=== PATIENT | female | born 1970 | race Caucasian/White ===

== ENCOUNTER 2023-01-31 03:41 | Emergency (ER) | payer OTHER, SELFPAY ==
[2023-01-31 03:44] VITALS: BP 154/89; PULSE 92; RESP 16; TEMP 37.1; O2SAT 97; BMI 45.7
--- NOTE | 2023-01-31 03:56 | ED.GENADUL1 ---
Documented by User: Luis Felipe Enriquez MD 02/01/23 06:41 HPI - General Adult General Chief complaint: Headache Stated complaint: headache Time Seen by Provider: 01/31/23 03:53 History of Present Illness HPI narrative: headache and diarrhea for one week. headache improves with OTC medication but returns. Feels like a band across her head. headache is not too bad now .States she feels crappy. Diarrhea is without blood. No fever Onset (ago): week(s) Related Data Home Medications Medication Instructions Recorded Confirmed levothyroxine 137 mcg tablet 137 mcg PO DAILY 01/31/23 01/31/23 meloxicam 15 mg tablet 15 mg PO DAILY 01/31/23 01/31/23 Previous Rx's Medication Instructions Recorded dicyclomine 20 mg tablet 20 mg PO QID PRN abdominal pain 01/31/23 #10 tabs Allergies Allergy/AdvReac Type Severity Reaction Status Date / Time naproxen [From Aleve] Allergy Unknown Verified 01/31/23 03:47 Review of Systems ROS Status of ROS 10 or more systems reviewed and unremarkable except as noted in history and below PFSH PFS Social History Smoking status: Current every day smoker Exam Constitutional Vital Signs, click to edit/add: Last Vital Signs Temp 98.8 F 01/31/23 03:44 Pulse 92 H 01/31/23 03:44 Resp 16 01/31/23 03:44 BP 154/89 H 01/31/23 03:44 Pulse Ox 97 01/31/23 03:44 O2 Del Method Room Air 01/31/23 03:44 Common normals: no apparent distress, oriented x3, no limitations, healthy appearing, alert and well nourished Eye Common normals: EOMs intact bilaterally and conjunctivae normal Respiratory Common normals: normal respiratory effort, no retractions, no use of accessory muscles and clear to auscultation bilaterally Cardio Common normals: regular rate, regular rhythm, S1 normal heart sound and S2 normal heart sound GI Common normals: Normal to inspection, nondistended, normoactive bowel sounds present, soft to palpation and non-tender Extremity Common normals: normal to inspection and full ROM Neuro Common normals: oriented x3, CN's II-XII intact bilaterally, moves all extremities, no focal motor deficits and no sensory deficits noted Psych Appearance: grossly normal Course Vital Signs Vital signs: Vital Signs Temperature 98.8 F 01/31/23 03:44 Pulse Rate 92 H 01/31/23 03:44 Respiratory Rate 16 01/31/23 03:44 Blood Pressure 154/89 H 01/31/23 03:44 Pulse Oximetry 97 01/31/23 03:44 Oxygen Delivery Method Room Air 01/31/23 03:44 Temperature 98.8 F 01/31/23 03:44 Pulse Rate 92 H 01/31/23 03:44 Respiratory Rate 16 01/31/23 03:44 Blood Pressure 154/89 H 01/31/23 03:44 Pulse Oximetry 97 01/31/23 03:44 Oxygen Delivery Method Room Air 01/31/23 03:44 Medical Decision Making Lab Data Labs: Lab Results 01/31/23 01/31/23 Range/Units 04:10 05:39 WBC 8.5 (4.0-11.0) 10^3/uL RBC 4.55 (4.20-5.40) 10^6/uL Hgb 12.8 (12.0-16.0) g/dL Hct 39.4 (36.0-48.0) % MCV 86.6 (81.0-99.0) fL MCH 28.1 (26.7-34.0) pg MCHC 32.5 (29.9-35.2) g/dL RDW 15.8 H (11.0-15.0) % Plt Count 151 (150-450) 10^3/uL MPV 11.7 (9.5-13.5) fL Neut % (Auto) 58.1 (43.0-75.0) % Lymph % (Auto) 34.6 (20.5-60.0) % Leslie % (Auto) 6.2 (1.7-12.0) % Eos % (Auto) 0.9 (0.9-7.0) % Baso % (Auto) 0.1 L (0.2-2.0) % Neut # (Auto) 4.9 (1.4-6.5) 10^3/uL Lymph # (Auto) 2.9 (1.2-3.8) 10^3/uL Leslie # (Auto) 0.5 (0.3-0.8) 10^3/uL Eos # (Auto) 0.1 (0.0-0.7) 10^3/uL Baso # (Auto) 0.0 (0.0-0.1) 10^3/uL Abs Immat Gran (auto) 0.01 (0.00-0.03) 10^3/uL Imm/Tot Granulo (auto) 0.1 (0.0-0.5) % Sodium 141 (136-145) mmol/L Potassium 3.7 (3.5-5.1) mmol/L Chloride 105 (98-107) mmol/L Carbon Dioxide 25.7 (21.0-32.0) mmol/L Anion Gap 14.0 BUN 16.0 (7.0-18.0) mg/dL Creatinine 0.89 (0.55-1.02) mg/dL Est GFR ( Amer) >60 (>=60) Est GFR (Non-Af Amer) >60 (>=60) BUN/Creatinine Ratio 18.0 Glucose 203 H (74-106) mg/dL Calcium 8.5 (8.5-10.1) mg/dL Total Bilirubin 0.4 (0.2-1.0) mg/dL AST 31 (15-37) U/L ALT 59 (14-59) U/L Alkaline Phosphatase 109 (46-116) U/L Total Protein 7.0 (6.4-8.2) g/dL Albumin 3.8 (3.4-5.0) g/dL Globulin 3.2 g/dL Albumin/Globulin Ratio 1.2 Stl C. cayetanensis PCR Not detected (NOT DETECTE) Stool Rotavirus (PCR) Not detected (NOT DETECTE) Stool Adenovirus (PCR) Not detected (NOT DETECTE) Stool Astrovirus (PCR) Not detected (NOT DETECTE) Stool Campylobacter PCR Not detected (NOT DETECTE) Stool Cryptosporidium PCR Not detected (NOT DETECTE) St Sh/Enteroin Ecoli PCR Not detected (NOT DETECTE) Stl Enterotoxigenic E PCR Not detected (NOT DETECTE) Stool EPEC (PCR) Not detected (NOT DETECTE) Stl E. histolytica PCR Not detected (NOT DETECTE) Stool Giardia Lamblia PCR Not detected (NOT DETECTE) Stl P. shigelloides PCR Not detected (NOT DETECTE) Stool Salmonella PCR Not detected (NOT DETECTE) Stool Sapovirus (PCR) Not detected (NOT DETECTE) Stl Shiga-like Tx 1 PCR Not detected (NOT DETECTE) St Y.enterocolitica PCR Not detected (NOT DETECTE) Stl Vibrio cholerae PCR Not detected (NOT DETECTE) Stl Enteroaggr Ecoli PCR Not detected (NOT DETECTE) Stl Norovirus GI/GII PCR Not detected (NOT DETECTE) C. difficile Toxin A&B Not detected (NOT DETECTE) Vibrio Culture Not detected (NOT DETECTE) Discharge Plan Discharge Chief Complaint: Headache Clinical Impression: Diarrhea, Headache Patient Disposition: Home, Self-Care Time of Disposition Decision: 07:05 Condition: Good Prescriptions / Home Meds: New dicyclomine 20 mg tablet 20 mg PO QID PRN (Reason: abdominal pain) Qty: 10 0RF No Action levothyroxine 137 mcg tablet 137 mcg PO DAILY meloxicam 15 mg tablet 15 mg PO DAILY Print Language: [place] Citizen Instructions: Gastroenteritis (ED), Acute Headache (ED) Stand Alone Forms: Portal Instructions Referrals: Kayla Gutierrez [Emergency Nurse] - 1 week Physician,Non-Staff, [Primary Care Provider] - 1 week Discharge Date/Time: 01/31/23 07:17 Documented by User: Wei Yu MD 01/31/23 07:14 HPI - General Adult General Chief complaint: Headache Stated complaint: headache Time Seen by Provider: 01/31/23 03:53 Related Data Home Medications Medication Instructions Recorded Confirmed levothyroxine 137 mcg tablet 137 mcg PO DAILY 01/31/23 01/31/23 meloxicam 15 mg tablet 15 mg PO DAILY 01/31/23 01/31/23 Previous Rx's Medication Instructions Recorded dicyclomine 20 mg tablet 20 mg PO QID PRN abdominal pain 01/31/23 #10 tabs Allergies Allergy/AdvReac Type Severity Reaction Status Date / Time naproxen [From Aleve] Allergy Unknown Verified 01/31/23 03:47 PFSH PFSH Social History Smoking status: Current every day smoker Exam Constitutional Vital Signs, click to edit/add: Last Vital Signs Temp 98.8 F 01/31/23 03:44 Pulse 92 H 01/31/23 03:44 Resp 16 01/31/23 03:44 BP 154/89 H 01/31/23 03:44 Pulse Ox 97 01/31/23 03:44 O2 Del Method Room Air 01/31/23 03:44 Course Vital Signs Vital signs: Vital Signs Temperature 98.8 F 01/31/23 03:44 Pulse Rate 92 H 01/31/23 03:44 Respiratory Rate 16 01/31/23 03:44 Blood Pressure 154/89 H 01/31/23 03:44 Pulse Oximetry 97 01/31/23 03:44 Oxygen Delivery Method Room Air 01/31/23 03:44 Temperature 98.8 F 01/31/23 03:44 Pulse Rate 92 H 01/31/23 03:44 Respiratory Rate 16 01/31/23 03:44 Blood Pressure 154/89 H 01/31/23 03:44 Pulse Oximetry 97 01/31/23 03:44 Oxygen Delivery Method Room Air 01/31/23 03:44 Medical Decision Making MDM Narrative Medical decision making narrative: Signout note: Patient signed out to me by Dr. Enriquez with results of gastrointestinal study pending. Patient with headache and diarrhea for the last week. Stable, patient is afebrile. Her abdominal examination is benign. Laboratory reviewed and noted. Studies are negative. Patient will appearing in the room. She is requesting a work note. Work note provided. Dr. Lara. Previously discussed incidental finding of nonfasting hyperglycemia with the patient. She'll need follow-up with her PCP. Giovanny prescribed. Return precautions discussed. Questions were answered. The patient was discharged home. Wei Yu DO, FAAEM Lab Data Labs: Lab Results 01/31/23 01/31/23 Range/Units 04:10 05:39 WBC 8.5 (4.0-11.0) 10^3/uL RBC 4.55 (4.20-5.40) 10^6/uL Hgb 12.8 (12.0-16.0) g/dL Hct 39.4 (36.0-48.0) % MCV 86.6 (81.0-99.0) fL MCH 28.1 (26.7-34.0) pg MCHC 32.5 (29.9-35.2) g/dL RDW 15.8 H (11.0-15.0) % Plt Count 151 (150-450) 10^3/uL MPV 11.7 (9.5-13.5) fL Neut % (Auto) 58.1 (43.0-75.0) % Lymph % (Auto) 34.6 (20.5-60.0) % Leslie % (Auto) 6.2 (1.7-12.0) % Eos % (Auto) 0.9 (0.9-7.0) % Baso % (Auto) 0.1 L (0.2-2.0) % Neut # (Auto) 4.9 (1.4-6.5) 10^3/uL Lymph # (Auto) 2.9 (1.2-3.8) 10^3/uL Leslie # (Auto) 0.5 (0.3-0.8) 10^3/uL Eos # (Auto) 0.1 (0.0-0.7) 10^3/uL Baso # (Auto) 0.0 (0.0-0.1) 10^3/uL Abs Immat Gran (auto) 0.01 (0.00-0.03) 10^3/uL Imm/Tot Granulo (auto) 0.1 (0.0-0.5) % Sodium 141 (136-145) mmol/L Potassium 3.7 (3.5-5.1) mmol/L Chloride 105 (98-107) mmol/L Carbon Dioxide 25.7 (21.0-32.0) mmol/L Anion Gap 14.0 BUN 16.0 (7.0-18.0) mg/dL Creatinine 0.89 (0.55-1.02) mg/dL Est GFR ( Amer) >60 (>=60) Est GFR (Non-Af Amer) >60 (>=60) BUN/Creatinine Ratio 18.0 Glucose 203 H (74-106) mg/dL Calcium 8.5 (8.5-10.1) mg/dL Total Bilirubin 0.4 (0.2-1.0) mg/dL AST 31 (15-37) U/L ALT 59 (14-59) U/L Alkaline Phosphatase 109 (46-116) U/L Total Protein 7.0 (6.4-8.2) g/dL Albumin 3.8 (3.4-5.0) g/dL Globulin 3.2 g/dL Albumin/Globulin Ratio 1.2 Stl C. cayetanensis PCR Not detected (NOT DETECTE) Stool Rotavirus (PCR) Not detected (NOT DETECTE) Stool Adenovirus (PCR) Not detected (NOT DETECTE) Stool Astrovirus (PCR) Not detected (NOT DETECTE) Stool Campylobacter PCR Not detected (NOT DETECTE) Stool Cryptosporidium PCR Not detected (NOT DETECTE) St Sh/Enteroin Ecoli PCR Not detected (NOT DETECTE) Stl Enterotoxigenic E PCR Not detected (NOT DETECTE) Stool EPEC (PCR) Not detected (NOT DETECTE) Stl E. histolytica PCR Not detected (NOT DETECTE) Stool Giardia Lamblia PCR Not detected (NOT DETECTE) Stl P. shigelloides PCR Not detected (NOT DETECTE) Stool Salmonella PCR Not detected (NOT DETECTE) Stool Sapovirus (PCR) Not detected (NOT DETECTE) Stl Shiga-like Tx 1 PCR Not detected (NOT DETECTE) St Y.enterocolitica PCR Not detected (NOT DETECTE) Stl Vibrio cholerae PCR Not detected (NOT DETECTE) Stl Enteroaggr Ecoli PCR Not detected (NOT DETECTE) Stl Norovirus GI/GII PCR Not detected (NOT DETECTE) C. difficile Toxin A&B Not detected (NOT DETECTE) Vibrio Culture Not detected (NOT DETECTE) Discharge Plan Discharge Chief Complaint: Headache Clinical Impression: Diarrhea, Headache Patient Disposition: Home, Self-Care Time of Disposition Decision: 07:05 Condition: Good Prescriptions / Home Meds: New dicyclomine 20 mg tablet 20 mg PO QID PRN (Reason: abdominal pain) Qty: 10 0RF No Action levothyroxine 137 mcg tablet 137 mcg PO DAILY meloxicam 15 mg tablet 15 mg PO DAILY Print Language: [place] Citizen Instructions: Gastroenteritis (ED), Acute Headache (ED) Stand Alone Forms: Portal Instructions Referrals: Kayla Gutierrez [Emergency Nurse] - 1 week Physician,Non-Staff, MD [Primary Care Provider] - 1 week Discharge Date/Time: 01/31/23 07:17
--- NOTE | 2023-01-31 04:17 | CT_ITS ---
The [address] [address] Patient Name: ABBEY PAPPAS MRN: [id number] date: 1970 Sex: F Assigned Patient Location: ER Current Patient Location: ER Accession/Order Number: [id number] Exam Date: 01/31/2023 04:17 Report Date: 01/31/2023 04:40 At the request of: NIHARIKA AGUIRRE Procedure: CT head/brain wo con INDICATION: 52 years old; Female. Headache for one week. TECHNIQUE: CT Head (ax/cor/sag reformats). Ionizing radiation dose reduced via iterative reconstruction/FBP blend and body size kV/mA adjustment. Comparison: None FINDINGS: POSTOPERATIVE CHANGES: None. BRAIN PARENCHYMA: No focal lesions. No mass effect. No midline shift or herniation. No intraparenchymal or extra-axial hemorrhage. Normal martinez/white differentiation. VENTRICLES/EXTRA-AXIAL SPACES: Normal for patient's age. SINUSES/MASTOIDS: There is an opacified hypoplastic frontal sinus in the midline. A separate from the remainder the frontal sinuses. No bone expansion is seen. Mastoids and middle ears are clear. MSK: No displaced or depressed calvarial fracture is noted. OTHER: No hyperdense intraluminal thrombus is seen. CT/CT head/brain wo con IMPRESSION: 1. No acute intracranial abnormality. No hemorrhage or mass effect. 2. There is a opacified accessory frontal sinus in the midline. No bone expansion or destruction is seen. Electronically authenticated by: JACOB TOSCANO Date: 01/31/2023 04:40
[2023-01-31 04:19] LABS: Basophils Percent Auto 0.1 % (0.2-2.0); Eosinophils Absolute Auto 0.1 10^3/uL (0.0-0.7); Eosinophils Percent Auto 0.9 % (0.9-7.0); Hematocrit 39.4 % (36.0-48.0); Hemoglobin 12.8 g/dL (12.0-16.0); Immature Granulocytes Abs Auto 0.01 10^3/uL (0.00-0.03); Immature Granulocytes Pct Auto 0.1 % (0.0-0.5); Lymphocytes Absolute Auto 2.9 10^3/uL (1.2-3.8); Lymphocytes Percent Auto 34.6 % (20.5-60.0); Mean Corpuscular HGB Conc 32.5 g/dL (29.9-35.2); Mean Corpuscular Hemoglobin 28.1 pg (26.7-34.0); Mean Corpuscular Volume 86.6 fL (81.0-99.0); Mean Platelet Volume 11.7 fL (9.5-13.5); Monocytes Absolute Auto 0.5 10^3/uL (0.3-0.8); Monocytes Percent Auto 6.2 % (1.7-12.0); Neutrophils Absolute Auto 4.9 10^3/uL (1.4-6.5); Neutrophils Percent Auto 58.1 % (43.0-75.0); Platelet Count 151 10^3/uL (150-450); Red Blood Count 4.55 10^6/uL (4.20-5.40); Red Cell Distribution Width 15.8 % (11.0-15.0); White Blood Count 8.5 10^3/uL (4.0-11.0)
[2023-01-31 04:37] LABS: Alanine Aminotransferase 59 U/L (14-59); Albumin Globulin Ratio 1.2; Albumin Level 3.8 g/dL (3.4-5.0); Alkaline Phosphatase 109 U/L (46-116); Aspartate Amino Transferase 31 U/L (15-37); Bilirubin Total 0.4 mg/dL (0.2-1.0); Calcium 8.5 mg/dL (8.5-10.1); Carbon Dioxide 25.7 mmol/L (21.0-32.0); Chloride 105 mmol/L (98-107); Estimated GFR (African America >60 (>=60); Estimated GFR (Non-African Ame >60 (>=60); Globulin 3.2 g/dL; Glucose 203 mg/dL (74-106); Potassium 3.7 mmol/L (3.5-5.1); Sodium 141 mmol/L (136-145)
[2023-01-31 05:44] LABS: Adenovirus F 40/41 NOT DETECTED (NOT DETECTE); Astrovirus NOT DETECTED (NOT DETECTE); Campylobacter NOT DETECTED (NOT DETECTE); Cryptosporidium NOT DETECTED (NOT DETECTE); Cyclospora cayetanensis NOT DETECTED (NOT DETECTE); Entamoeba histolytica NOT DETECTED (NOT DETECTE); Enteroaggregative E.coli NOT DETECTED (NOT DETECTE); Enteropathogenic E.coli NOT DETECTED (NOT DETECTE); Enterotoxigenic E. coli NOT DETECTED (NOT DETECTE); Giardia lamblia NOT DETECTED (NOT DETECTE); Norovirus GI/GII NOT DETECTED (NOT DETECTE); Plesiomonas shigelloides NOT DETECTED (NOT DETECTE); Rotavirus A NOT DETECTED (NOT DETECTE); Salmonella NOT DETECTED (NOT DETECTE); Sapovirus NOT DETECTED (NOT DETECTE); Shiga-like toxin-producing E.C NOT DETECTED (NOT DETECTE); Shigella/Enteroinvasive E.coli NOT DETECTED (NOT DETECTE); Vibrio NOT DETECTED (NOT DETECTE); Vibrio cholerae NOT DETECTED (NOT DETECTE); Yersinia enterocolitica NOT DETECTED (NOT DETECTE)
== END 2023-01-31 07:17 | disposition home or self-care (01) ==
PROVIDERS: Internal Medicine; Emergency Provider Student in an Organized Health Care Education/Training Program
DX: R51.9 Headache, unspecified (principal); R19.7 Diarrhea, unspecified; Z79.899 Other long term (current) drug therapy; Z79.890 Hormone replacement therapy; F17.210 Nicotine dependence, cigarettes, uncomplicated
CPT/HCPCS: 36415; 70450; 80053; 85025; 87045; 87493; 87507; 99284

== ENCOUNTER 2023-05-08 17:49 | Outpatient (OUT) | payer OTHER, SELFPAY ==
--- NOTE | 2023-05-08 | XR_ITS ---
The [place] [id number] Patient Name: ABBEY PAPPAS MRN: [id number] date: 1970 Sex: F Assigned Patient Location: [facility] Current Patient Location: Accession/Order Number: [id number] Exam Date: 05/08/2023 18:30 Report Date: 05/09/2023 01:46 At the request of: YENY SMITH Procedure: XR wrist LT min 3V EXAM: XR wrist LT min 3V, XR hand LT min 3V HISTORY: LEFT HAND PAIN M 79.642 COMPARISON: None. TECHNIQUE: 3 views of the left wrist and 4 views of the left hand were obtained. FINDINGS: No acute fracture or dislocation is seen. There are scattered degenerative changes. On the last image of the hand, a metallic BB overlies the proximal third finger. No soft tissue mass is seen. XR/XR wrist LT min 3V IMPRESSION: 1. Scattered degenerative changes of the left wrist and left hand with no acute osseous abnormality seen. Electronically authenticated by: Cami JORDAN Date: 05/09/2023 01:46
--- NOTE | 2023-05-08 | XR_ITS ---
The [address] [address] Patient Name: ABBEY PAPPAS MRN: [id number] date: 1970 Sex: F Assigned Patient Location: [facility] Current Patient Location: Accession/Order Number: [id number] Exam Date: 05/08/2023 18:30 Report Date: 05/09/2023 01:46 At the request of: YENY SMITH Procedure: XR hand LT min 3V EXAM: XR wrist LT min 3V, XR hand LT min 3V HISTORY: LEFT HAND PAIN M 79.642 COMPARISON: None. TECHNIQUE: 3 views of the left wrist and 4 views of the left hand were obtained. FINDINGS: No acute fracture or dislocation is seen. There are scattered degenerative changes. On the last image of the hand, a metallic BB overlies the proximal third finger. No soft tissue mass is seen. XR/XR hand LT min 3V IMPRESSION: 1. Scattered degenerative changes of the left wrist and left hand with no acute osseous abnormality seen. Electronically authenticated by: Cami JORDAN Date: 05/09/2023 01:46
== END 2023-05-08 17:50 | disposition home or self-care (01) ==
PROVIDERS: PCP Nurse Practitioner Family; Visit Provider Family Medicine
DX: M79.642 Pain in left hand (principal)
CPT/HCPCS: 73110; 73130

== ENCOUNTER 2023-07-21 06:36 | Outpatient (OUT) | payer OTHER, SELFPAY ==
--- OUTSIDE RECORDS SUMMARY | 2023-07-21 06:38 | XMS_ITS | CCD ---
Author Name Unknown Address [id number] [place] [address] Organization [facility] Care Team Providers Care Co Founder And Chief Strategy Officer Name Role Phone NON STAFF Primary Care Unavailable Erica Preston Consulting Unavailable Luis, Sameh Admitting Unavailable Riryana, Juan Luish Attending Unavailable EBRAHEIM, YARIEL Admitting Unavailable EBRAHEIM, YARIEL Attending Unavailable UNKNOWN, PHYSICIAN Referring Unavailable UNKNOWN, PHYSICIAN Primary Care Unavailable FTÁIMA SALAZAR Surgeon Unavailable [place] Procedure Practitioner Unavailab le [place] Procedure Practitioner Unavailab le YARIEL ELISE Surgeon Unavailable RAMON, YING Primary Care Unavailable RAMON, YING Admitting Unavailable RAMON, YING Attending Unavailable RAMON, YING Attending Unavailable RAMON, YING Consulting Unavailable RAMON, YING Primary Care Unavailable RAMON, YING Admitting Unavailable RAMON, YING Attending Unavailable RAMON, YING Consulting Unavailable RAMON, YING Primary Care Unavailable RAMON, YING Admitting Unavailable DIXIE RAMOS Referring Unavailable DIXIE RAMOS Attending Unavailable INDIGO, DIXIE Attending Unavailable Allergies Allergy Classification Reported Allergen(s) Allergy Type Date of Onset Reaction(s) Facility (1 source) Naproxen Drug Allergy 08-10-2018 [facility] Repository (3 sources) Naproxen Drug Allergy 03-27-2015 [facility] Repository (1 source) Naproxen Drug Allergy 05-18-2020 [facility] (1 source) Naproxen; Translations: [NAPROXEN SODIUM] Drug Allergy 05-27-2022 [facility] Repository Problems Active Problems Problem Classification Problem Date Documented Date Episodic/Chronic Administrative/social admission (1 source) Other reduced mobility; Translations: [Z74.09 - Other reduced mobility] Onset: 08-10-2018 Episodic Deficiency and other anemia (1 source) Anemia, unspecified; Translations: [D64.9 - Anemia, unspecified] Onset: 08-10-2018 Episodic Essential hypertension (1 source) Essential (primary) hypertension; Translations: [I10 - Essential (primary) hypertension] Onset: 08-10-2018 Chronic Nutritional deficiencies (1 source) Deficiency of other specified B group vitamins; Translations: [E53.8 - Deficiency of other specified B group vitamins] Onset: 08-10-2018 Episodic Other injuries and conditions due to external causes (1 source) Traumatic compartment syndrome of right lower extremity, initial encounter; Translations: [T79.A21A - Traumatic compartment syndrome of right lower extremity, initial encounter] Onset: 08-10-2018 Episodic Other injuries and conditions due to external causes (1 source) History of falling; Translations: [Z91.81 - History of falling] Onset: 08-10-2018 Episodic Other nervous system disorders (1 source) Other acute postprocedural pain; Translations: [G89.18 - Other acute postprocedural pain] Onset: 08-10-2018 Episodic Other screening for suspected conditions (not mental disorders or infectious disease) (1 source) Other specified abnormal findings of blood chemistry; Translations: [R79.89 - Other specified abnormal findings of blood chemistry] Onset: 08-10-2018 Episodic Residual codes; unclassified (1 source) Other specified postprocedural states; Translations: [Z98.890 - Other specified postprocedural states] Onset: 08-10-2018 Unclassified (1 source) S82.141A - Displaced bicondylar fracture of right tibia, initial encounter for closed fracture; Translations: [S82.141A - Displaced bicondylar fracture of right tibia, initial encounter for closed fracture] Onset: 08-10-2018 Past or Other Problems Problem Classification Problem Date Documented Da te Episodic/Chronic Fracture of lower limb (2 sources) Displaced bicondylar fracture of right tibia, subsequent encounter for closed fracture with routine healing; Translations: [Displaced bicondylar fracture of right tibia, subsequent encounter for closed fracture with routine healing] Onset: 05-25-2022 Episodic Results Test Name Value Interpretation Reference Range Facility 36on 07-19-2023 36 Approving, but needs appt for additional refills. [facility] 36on 06-09-2023 36 Approving, but needs appt for additional refills. [facility] 36on 05-09-2023 36 Approving, but needs appt for additional refills. [facility] Office Visiton 12-19-2022 Follow-up visit [id number] Jovita Swartzvirgie Hull 1970 F Date Provider Department Center 12/19/2022 DIXIE WINSTON MP Family History Family history unknown: Yes Family Status - Relation Status Age at Mother Father Level of Service:92939 [place] OFFICE/OUTPT VISIT,PROCEDURE ONLY Reason for Visit and Comments: Follow-up [271924] Pain [136] [facility] Follow-Upon 11-28-2022 Follow-Up [id number] Abbey Swartz R 1970 Provider Department Center 11/28/2022 DIXIE WINSTON MP Family History Family history unknown: Yes Level of Service:15740 [place] OFFICE/OUTPATIENT ESTABLISHED LOW MDM 20-29 MIN Reason for Visit and Comments: Follow-up [929500] Pain [136] [facility] 36on 11-09-2022 36 User notified dequan t that refill was approved and in order for future refills she would need to keep further appointment. Patient verbalized understanding. Patient appointment is scheduled for 11/21/2022 @1:15 with Dixie Ramos. No further action is needed. [facility] 36on 11-08-2022 36 Approving, but needs appt for additional refills. [facility] 36on 10-06-2022 36 Approving, but needs appt for additional refills. [facility] INSULINon 07-11-2022 Insulin 27.8 uIU/mL Critically high 2.6-24.9 [facility] Comment on above: Performed By: #### I NSULIN #### [facility] [address] [address] [address] Heather Del Toro OCC BLD IMMUNO SCREENon 06-20 OCCULT BLOOD Negative Normal NEGATIVE [facility] Comment on above: Performed By: #### O BSCRN #### [facility] [address] [place] [address] Dr. Heather Del Toro CBC AUTO DIFFon 07-09-2022 BASO # 0.0 103/ul Normal 0.0-0.1 [facility] Comment on above: Performed By: #### C BC #### [facility] [address] [place] [address] Dr. Heather Del Toro Basophils/100 WBC (Bld) 0.2 % Normal 0.2-2.0 [facility] Comment on above: Performed By: #### C BC #### [facility] [address] [place] [address] Dr. Heather Del Toro EO # 0.1 103/ul Normal 0.0-0.7 [facility] Comment on above: Performed By: #### C BC #### [facility] [address] [place] [address] Dr. Heather Del Toro Eosinophils/100 WBC (Bld) 1.0 % Normal 0.9-7.0 [facility] Comment on above: Performed By: #### C BC #### [facility] [address] [place] [address] Dr. Heather Del Toro Erythrocyte distribution width (RBC) [Ratio] 14.9 % Normal 11.0-15.0 [facility] Comment on above: Performed By: #### C BC #### [facility] [address] [place] [address] Dr. Heather Del Toro Hematocrit (Bld) [Volume fraction] 36.6 % Normal 36.0-48.0 [facility] Comment on above: Performed By: #### C BC #### [facility] [address] [place] [address] Dr. Heather Del Toro Hemoglobin (Bld) [Mass/Vol] 12.5 g/dL Normal 12.0-16.0 [facility] Comment on above: Performed By: #### C BC #### [facility] [address] [place] [address] Dr. Heather Del Toro IG # 0.01 10e3/ul Normal 0.00-0.03 [facility] Comment on above: Performed By: #### C BC #### [facility] [address] [place] [address] Dr. Heather Del Toro IG % 0.1 % Normal 0.0-0.5 [facility] Comment on above: Performed By: #### C BC #### [facility] [address] [place] [address] Dr. Heather Del Toro LYMPH # 3.2 103/ul Normal 1.2-3.8 [facility] Comment on above: Performed By: #### C BC #### [facility] [address] [place] [address] Dr. Heather Del Toro Lymphocytes/100 WBC (Bld) 39.0 % Normal 20.5-60.0 [facility] Comment on above: Performed By: #### C BC #### [facility] [address] [place] [address] Dr. Heather Del Toro MANUAL DIFF REQ NO Normal [facility] Comment on above: Performed By: #### C BC #### [facility] [address] [place] [address] Dr. Heather Del Toro MCH (RBC) [Entitic mass] 27.2 pg Normal 26.7-34.0 [facility] Comment on above: Performed By: #### C BC #### [facility] [address] [place] [address] Dr. Heather Del Toro MCHC (RBC) [Mass/Vol] 34.2 g/dL Normal 29.9-35.2 [facility] Comment on above: Performed By: #### C BC #### [facility] [address] [place] [address] Dr. Heather Del Toro MCV (RBC) [Entitic vol] 79.7 fL Critically low 81.0-99.0 [facility] Comment on above: Performed By: #### C BC #### [facility] [address] [place] [address] Dr. Heather Del Toro MONO # 0.6 103/ul Normal 0.3-0.8 [facility] Comment on above: Performed By: #### C BC #### [facility] [address] [place] [address] Dr. Heather Del Toro Monocytes/100 WBC (Bld) 6.7 % Normal 1.7-12.0 [facility] Comment on above: Performed By: #### C BC #### [facility] [address] [place] [address] Dr. Heather Del Toro NEUT # 4.4 103/ul Normal 1.4-6.5 [facility] Comment on above: Performed By: #### C BC #### [facility] [address] [place] [address] Dr. Heather Del Toro Neutrophils/100 WBC (Bld) 53.0 % Normal 43.0-75.0 [facility] Comment on above: Performed By: #### C BC #### [facility] [address] [place] [address] Dr. Heather Del Toro Platelet mean volume (Bld) [Entitic vol] 11.2 fL Normal 9.5-13.5 [facility] Comment on above: Performed By: #### C BC #### [facility] [address] [place] [address] Dr. Heather Del Toro PLT 168 103/ul Normal 150-450 [facility] Comment on above: Performed By: #### C BC #### [facility] [address] [place] [address] Dr. Heather Del Toro RBC 4.59 106/ul Normal 4.20-5.40 [facility] Comment on above: Performed By: #### C BC #### [facility] [address] [place] [address] Dr. Heather Del Toro WBC 8.3 103/ul Normal 4.0-11.0 [facility] Comment on above: Performed By: #### C BC #### [facility] [address] [place] [address] Dr. Heather Del Toro FREE THYROXINE INDEX T7on FTI 3.30 Normal 1.30-4.50 [facility] Comment on above: Performed By: #### L IPID, CMP, T7, TSH #### [facility] [address] [place] [address] Dr. Heather Del Toro T3U 32.0 % Normal 30.0-39.0 [facility] Comment on above: Performed By: #### L IPID, CMP, T7, TSH #### [facility] [address] [address] [address] Heather Del Toro T4 [Mass/Vol] 10.30 ug/dL Normal 4.80-13.90 [facility] Comment on above: Performed By: #### L IPID, CMP, T7, TSH #### [facility] [address] [address] [address] Heather Del Toro GLYCOHEMOGLOBIN A1Con 2022 ADA RECOMMENDATION SEE BELOW Normal [facility] Comment on above: Result Comment: ADA RECOMMENDED LIMIT 4.0 - 6.0 ADA THERAPEUTIC TARGET < 7.0 ACTION SUGGESTED > 7.0 Performed By: #### A 1C #### [facility] [address] [place] [address] Dr. Heather Del Toro Glucose [Mass/Vol] 146 mg/dL Normal [facility] Comment on above: Performed By: #### A 1C #### [facility] [address] [place] [address] Dr. Heather Del Toro HbA1c (Bld) [Mass fraction] 6.7 % Critically high 4.5-6.2 [facility] Comment on above: Performed By: #### A 1C #### [facility] [address] [place] [address] Dr. Heather Del Toro IRONon 07-09-2022 Iron [Mass/Vol] 26.0 ug/dL Critically low 50.0-170.0 [facility] Comment on above: Performed By: #### I YAKOV #### [facility] [address] [address] [address] Heather Del Toro LIPID PROFILEon 07-09-2022 CHOL-HDL RATIO NORM SEE BELOW Normal [facility] Comment on above: Result Comment: 3.3 - 4.4 LOW RISK 4.4 - 7.1 AVERAGE RISK 7.1 - 11.0 MODERATE RISK >11.0 HIGH RISK Performed By: #### L IPID, CMP, T7, TSH #### [facility] [address] [address] [address] Heather Del Toro Cholesterol [Mass/Vol] 212 mg/dL Critically high <=200 [facility] Comment on above: Performed By: #### L IPID, CMP, T7, TSH #### [facility] [address] [address] [address] Heather Del Toro Cholesterol in HDL [Mass/Vol] 39 mg/dL Critically low 40-60 [facility] Comment on above: Performed By: #### L IPID, CMP, T7, TSH #### [facility] [address] [address] [address] Heather Del Toro Cholesterol in LDL [Mass/Vol] 150.6 mg/dL Normal [facility] Comment on above: Performed By: #### L IPID, CMP, T7, TSH #### [facility] [address] [address] [address] Heather Del Toro Cholesterol.total/Ch olesterol in HDL [Mass ratio] 5.4 {ratio} Normal [facility] Comment on above: Performed By: #### L IPID, CMP, T7, TSH #### [facility] [address] [address] [address] Heather Del Toro HDL NORMAL > or = 60 mg/dl - LO W CARDIOVASCULAR RISK <40 mg/dl - HIGH CARDIOVASCULAR RISK Normal [facility] Comment on above: Performed By: #### L IPID, CMP, T7, TSH #### [facility] [address] [address] [address] Heather Del Toro LDL CALC NORMAL SEE BELOW Normal [facility] Comment on above: Result Comment: <100 mg/dl OPTIMAL 100 - 129 mg/dl NEAR OR ABOVE OPTIMAL 130 - 159 mg/dl BORDERLINE HIGH 160 - 189 mg/dl HIGH >190 mg/dl VERY HIGH Performed By: #### L IPID, CMP, T7, TSH #### [facility] [address] [address] [address] Heather Del Toro Triglyceride [Mass/Vol] 112 mg/dL Normal <=150 [facility] Comment on above: Performed By: #### L IPID, CMP, T7, TSH #### [facility] [address] [place] [address] Dr. Heather Del Toro VLDL CALC 22.4 mg/dL Normal [facility] Comment on above: Performed By: #### L IPID, CMP, T7, TSH #### [facility] [address] [place] [address] Dr. Heather Del Toro PROF 14(COMP METB)on 023 Albumin [Mass/Vol] 3.9 g/dL Normal 3.4-5.0 [facility] Comment on above: Performed By: #### L IPID, CMP, T7, TSH #### [facility] [address] [place] [address] Dr. Heather Del Toro Albumin/Globulin [Mass ratio] 1.2 {ratio} Normal [facility] Comment on above: Performed By: #### L IPID, CMP, T7, TSH #### [facility] [address] [place] [address] Dr. Heather Del Toro ALP [Catalytic activity/Vol] 132 U/L Critically high 46-116 [facility] Comment on above: Performed By: #### L IPID, CMP, T7, TSH #### [facility] [address] [place] [address] Dr. Heather Del Toro ALT [Catalytic activity/Vol] 93 U/L Critically high 14-59 [facility] Comment on above: Performed By: #### L IPID, CMP, T7, TSH #### [facility] [address] [address] [address] Heather Del Toro Anion gap [Moles/Vol] 11.5 mmol/L Normal [facility] Comment on above: Performed By: #### L IPID, CMP, T7, TSH #### [facility] [address] [place] [address] Dr. Heather Del Toro AST [Catalytic activity/Vol] 43 U/L Critically high 15-37 [facility] Comment on above: Performed By: #### L IPID, CMP, T7, TSH #### [facility] [address] [place] [address] Dr. Heather Del Toro Bilirubin [Mass/Vol] 0.3 mg/dL Normal 0.2-1.0 [facility] Comment on above: Performed By: #### L IPID, CMP, T7, TSH #### [facility] [address] [address] [address] Heather Del Toro Calcium [Mass/Vol] 9.1 mg/dL Normal 8.5-10.1 [facility] Comment on above: Performed By: #### L IPID, CMP, T7, TSH #### [facility] [address] [place] [address] Dr. Heather Del Toro Chloride [Moles/Vol] 104 mmol/L Normal 98-107 [facility] Comment on above: Performed By: #### L IPID, CMP, T7, TSH #### [facility] [address] [place] [address] Dr. Heather Del Toro CO2 [Moles/Vol] 28.9 mmol/L Normal 21.0-32.0 [facility] Comment on above: Performed By: #### L IPID, CMP, T7, TSH #### [facility] [address] [place] [address] Dr. Heather Del Toro Creatinine [Mass/Vol] 0.73 mg/dL Normal 0.55-1.02 [facility] Comment on above: Performed By: #### L IPID, CMP, T7, TSH #### [facility] [address] [place] [address] Dr. Heather Del Toro EGFR-AF BHUTANESE >60 Normal >=60 [facility] Comment on above: Performed By: #### L IPID, CMP, T7, TSH #### [facility] [address] [place] [address] Dr. Heather Del Toro EGFR-NON AF BHUTANESE >60 Normal >=60 [facility] Comment on above: Performed By: #### L IPID, CMP, T7, TSH #### [facility] [address] [place] [address] Dr. Heather Del Toro Globulin (S) [Mass/Vol] 3.3 g/dL Normal [facility] Comment on above: Performed By: #### L IPID, CMP, T7, TSH #### [facility] [address] [address] [address] Heather Del Toro Glucose [Mass/Vol] 106 mg/dL Normal 74-106 [facility] Comment on above: Performed By: #### L IPID, CMP, T7, TSH #### [facility] [address] [place] [address] Dr. Heather Del Toro Potassium [Moles/Vol] 4.4 mmol/L Normal 3.5-5.1 [facility] Comment on above: Performed By: #### L IPID, CMP, T7, TSH #### [facility] [address] [place] [address] Dr. Heather Del Toro Protein [Mass/Vol] 7.2 g/dL Normal 6.4-8.2 [facility] Comment on above: Performed By: #### L IPID, CMP, T7, TSH #### [facility] [address] [place] [address] Dr. Heather Del Toro Sodium [Moles/Vol] 140 mmol/L Normal 136-145 [facility] Comment on above: Performed By: #### L IPID, CMP, T7, TSH #### [facility] [address] [place] [address] Dr. Heather Del Toro Urea nitrogen [Mass/Vol] 10.0 mg/dL Normal 7.0-18.0 [facility] Comment on above: Performed By: #### L IPID, CMP, T7, TSH #### [facility] [address] [place] [address] Dr. Heather Del Toro Urea nitrogen/Creatinine [Mass ratio] 13.7 mg/mg Normal [facility] Comment on above: Performed By: #### L IPID, CMP, T7, TSH #### [facility] [address] [place] [address] Dr. Heather Del Toro TSHon 07-09-2022 TSH 4.912 uIU/mL Critically high 0.358-3.740 [facility] Comment on above: Performed By: #### L IPID, CMP, T7, TSH #### [facility] [address] [address] [address] Heather Del Toro ANKLE RIGHT 2 [facility] 05-18-20 ANKLE RIGHT 2 [facility] [address] [place] [id number] Patient Name: ABBEY SWARTZ : 1970 Sex: F Age: Race: White Pt. Location: OUTP Patient Status: O Ordered Date: 05/18/2020 12:00:00 PM Completed Date: 05/18/2020 12:53 PM Requesting Provider: YARIEL ELISE Attending Provider: YARIEL ELISE Report Copy To: Signs & Symptoms: RIGHT PERCUTANEOUS ACHILLES TENDON LENGTHENING WITH RIGHT ANKLE JOINT CORTICOSTEROID INJECTION History: Comments: RIGHT PERCUTANEOUS ACHILLES TENDON LENGTHENING WITH RIGHT ANKLE JOINT CORTICOSTEROID INJECTION Exam: ANKLE RIGHT 2 [facility] ANKLE RIGHT 2 [facility] 05/18/2020 12:53 PM CLINICAL INDICATIONS: RIGHT PERCUTANEOUS ACHILLES TENDON LENGTHENING WITH RIGHT ANKLE JOINT CORTICOSTEROID INJECTION TECHNOLOGIST COMMENTS: Intra op. Right ankle steroid injection. Dr Elise used 8 seconds of fluoro. QUESTION FOR THE RADIOLOGIST: RIGHT PERCUTANEOUS ACHILLES TENDON LENGTHENING WITH RIGHT ANKLE JOINT CORTICOSTEROID INJECTION PROTOCOL: AP(PA) and Lateral views were obtained. COMPARISON: None FINDINGS: Dictation for documentation purposes only IMPRESSION: Electronically signed: Shivam Church. Transcribed by: [email or web address], User Resident: Electronically Signed by: SHIVAM CHURCH @ 05/18/2020 01:33 PM Normal [facility] Comment on above: Order Comment: RIGHT PERCUTANEOUS ACHILLES TENDON LENGTHENING WITH RIGHT ANKLE JOINT CORTICOSTEROID INJECTION Operative Reporton 0 Operative Report MR#: [id number] [facility] Pt. Name: Abbey Swartz Room #: 0C Discharge Date: Birthdate: 1970 OPERATIVE REPORT DATE OF SURGERY: 05/18/2020 SURGEON: Yariel Elise M.D. ASSISTANTS: 1. Dora Villarreal MD. 2. Yudi Padilla MD. 3. Jonathan Mata MD. PREOPERATIVE DIAGNOSES: 1. Right ankle equinus contracture. 2. Right talus OCD lesion. POSTOPERATIVE DIAGNOSES: 1. Right ankle equinus contracture. 2. Right talus OCD lesion. PROCEDURE PERFORMED: 1. Right percutaneous tendo-Achilles lengthening. 2. Right ankle corticosteroid injection under fluoroscopy. ANESTHESIA: General endotracheal. IV FLUIDS: Per anesthesia report. ANTIBIOTICS: Clindamycin. INDICATIONS FOR PROCEDURE: This is a 49-year-old female, who previously injured her right lower extremity in a work related accident over 1 year ago. Since that time, she has developed a right ankle equinus contracture as well as ankle pain secondary to an osteochondral lesion involving her talus. She was therefore recommended for percutaneous tendo-Achilles lengthening as well as corticosteroid injection to her ankle. After explaining risks, benefits, and alternatives, informed consent was obtained. PROCEDURE IN DETAIL: The patient was greeted in the preoperative holding area. Informed consent was deemed to be appropriate. The operative site was marked by the attending surgeon. Preoperative antibiotics in the form of clindamycin were administered. The patient was taken back to the operating room where general endotracheal anesthesia was induced. The patient was placed supine on the operating room table. Care was taken to ensure that all bony prominences were well padded. A nonsterile tourniquet was applied and not utilized during the case. A surgical time-out was performed and the procedure began with the patient, procedure, and laterality were confirmed. We began by performing a Woodford style Achilles tenotomy. Through 3 percutaneous stab incisions using a 15 blade. After performing our Achilles tenotomy, the patient was able to achieve approximately 10 degrees of dorsiflexion with the knee extended and 20 degrees of dorsiflexion with the knee flexed. Following the tenotomy, the heel cord was palpated and found to be incontinuity throughout. We then used a 21-gauge needle to inject the tibiotalar joint with 1 mL of 40 mix per mL Kenalog and 4 mL of 1% lidocaine without under fluoroscopy. The surgical site was then inoculated locally using 0.25% Marcaine with epinephrine. Percutaneous incisions were covered with Steri-Strips and a sterile dressing of gauze and Webril was applied. The patient was then placed into a well-padded short-leg splint with the ankle in neutral dorsiflexion. At the conclusion of the case, all needle and sponge counts were correct x2. POSTOPERATIVE PLAN: The patient will be remain nonweightbearing to her right lower extremity and her splint. She will be given scripts for pain medication as well as a stool softener. We will plan on seeing the patient back in 2 weeks for wound check. At that time, we will plan on making the patient weightbearing as tolerated in a Cam Walker boot. Dr. Elise was present for all critical portions of the procedure and immediately available thereafter. Electronically Signed by: Yariel Elise M.D. 05/20/2020 06:27 P Yariel Elise M.D. I was present for the grajeda and critical portions and I was otherwise immediately available to assist. Date Dict: 05/18/2020/01:35 P/Dora Villarreal MD Date Trans: 05/18/2020 06:45 P/angie [id number] Normal [facility] POC GLUCOSE LABon 05-18-2020 Glucose [Mass/Vol] 101 mg/dL High 70-100 The [facility] Comment on above: Performed By: #### 8 4039 #### [facility] [address] [facility] Glucose [Mass/Vol] 106 mg/dL High 70-100 [facility] Comment on above: Performed By: #### 8 5499 ####[facility] [place] [address], [place] *MRSA/MSSA DNA NASALon 05-16 *MRSA/MSSA DNA NASAL Clinical Report: (D ) Specimen: NASAL SWAB Collected: 05/16/2020 10:34 Status: Final Last Updated: 05/17/2020 09:45 MSSA DNA (Final) Negative MRSA DNA (Final) Negative Normal [facility] Comment on above: Performed By: #### 3 1595 #### [facility] [address] *SARS-CoV-2 COVID-19on 05-16 SARS-CoV-2 (COVID-19) RNA NEVILLE+probe Ql (Unsp spec) Not detected Normal Not Detected [facility] Comment on above: Order Comment: The A ptima SARS-CoV-2 assay is a nucleic acid amplification test intended for the qualitative detection of RNA from SARS-CoV-2 isolated and purified from nasopharyngeal (BANKRUPTCY JUDGE),oropharyngeal (OP), nasal swab, sputum, and bronchoalveolar lavage (BAL) specimens from patients with signs and symptoms of infection who are suspected of COVID-19. Results are for the identification of SARS-CoV-2 RNA. The SARS-CoV-2 RNA is generally detectable during the acute phase of infection. The Aptima SARS-CoV-2 Assay on the [place] [employer] [place] [employer] system is intended for use by laboratory personnel specifically instructed and trained in the operation of the [place] [employer] [place] [employer] system. The Aptima SARS-CoV-2 assay is only for use under the Food and Drug Administration Emergency Use Authorization. Testing is limited to laboratories certified under the Clinical Laboratory Improvement Amendments of 1988 (CLIA), 42 U.S.C. ???263a, to perform high complexity tests. Not Detected: Not detected does not preclude SARS-CoV-2 infection and should not be used as the sole basis for patient management decisions. Not detected results must be combined with clinical observations, patient history, and epidemiological information. Performed By: #### 3 1792 #### [facility] [address] APTTon 05-16-2020 aPTT Coag (Bld) [Time] 32.1 s Normal 25.0-35.[address] [facility] Comment on above: Result Comment: ALL RESULTS MUST BE INTERPRETED WITH RESPECT TO BLOOD DRAWING ARTIFACT OR DILUTION ERROR OF ANTICOAGULANT AT THE TIME OF SAMPLING. THE APTT SHOULD NOT BE USED TO MONITOR UNFRACTIONATED HEPARIN THERAPY, THIS LABORATORY NO LONGER HAS AN ESTABLISHED THERAPEUTIC RANGE BASED ON THE APTT. IT IS RECOMMENDED THAT THE UFH - HEPARIN ASSAY (ANTI-XA ACTIVITY) BE USED FOR THIS PURPOSE. Performed By: #### 5 6101, [id number] #### [facility] [address] [place] [address], [facility] BASIC METABOLIC PANELon 11-2 8-2019 Calcium [Mass/Vol] 9.5 mg/dL Normal 8.6-10.3 [facility] Comment on above: Performed By: #### 0 0071 #### [facility] [address] [place] [address], [facility] Chloride [Moles/Vol] 104 mmol/L Normal 98-107 [facility] Comment on above: Performed By: #### 0 0071 #### [facility] [address] [place] [address], [facility] CO2 [Moles/Vol] 28 mmol/L Normal 21-31 [facility] Comment on above: Performed By: #### 0 0071 #### [facility] [address] [place] [address], [facility] Creatinine [Mass/Vol] 0.79 mg/dL Normal 0.60-1.20 [facility] Comment on above: Performed By: #### 0 0071 #### [facility] [address] [place] [address], [facility] GFR/1.73 sq M.predicted among blacks MDRD (S/P/Bld) [Vol rate/Area] mL/min/{1.73_m2} Normal >60 [facility] Comment on above: Performed By: #### 0 0071 #### [facility] [address] GFR/1.73 sq M.predicted among non-blacks MDRD (S/P/Bld) [Vol rate/Area] mL/min/{1.73_m2} Normal >60 [facility] Comment on above: Performed By: #### 0 0071 #### [facility] [address] [place] [address], [facility] Glucose [Mass/Vol] 116 mg/dL High 70-100 [facility] Comment on above: Performed By: #### 0 0071 #### [facility] [address] [place] [address], [facility] Potassium [Moles/Vol] 4.2 mmol/L Normal 3.5-5.1 [facility] Comment on above: Performed By: #### 0 0071 #### [facility] [address] [facility]. [address] Sodium [Moles/Vol] 139 mmol/L Normal 136-145 [facility] Comment on above: Performed By: #### 0 1 #### [facility] [address] Urea nitrogen [Mass/Vol] 8 mg/dL Normal 7-25 [facility] Comment on above: Performed By: #### 0 1 #### [facility] [address] [place] [address], [facility] CBC W/DIFFon 05-16-2020 ABS IMM GRANS 0.0 10*3/uL Normal 0.0-0.2 [facility] Comment on above: Performed By: #### 5 3 #### [facility] [address] [facility]. [address] ABS NEUTROPHILS 5.7 10*3/uL Normal 1.6-7.[address] [facility] Comment on above: Performed By: #### 5 3 #### [facility] [address] [facility] [facility] [place] [address], [facility] Basophils (Bld) [#/Vol] 0.0 10*3/uL Normal 0.0-0.2 [facility] Comment on above: Performed By: #### 5 0103 #### [facility] [address] [place] [address], [facility] Basophils/100 WBC (Bld) 0.3 % Normal 0.0-1.0 [facility] Comment on above: Performed By: #### 5 0103 #### [facility] [address] [facility] [place] [address], [facility] Eosinophils (Bld) [#/Vol] 0.1 10*3/uL Normal 0.0-0.5 [facility] Comment on above: Performed By: #### 5 3 #### [facility] [address] [facility] [place] [address], [facility] Eosinophils/100 WBC (Bld) 1.4 % Normal 0.0-6.0 [facility] Comment on above: Performed By: #### 5 3 #### [facility] [address] [facility] Erythrocyte distribution width (RBC) [Ratio] 16.6 % High 11.5-15.0 [facility] Comment on above: Performed By: #### 5 0103 #### [facility] [address] [facility] [place] [address], [facility] Hematocrit (Bld) [Volume fraction] 41.8 % Normal 36.0-45.0 [facility] Comment on above: Performed By: #### 5 0103 #### [facility] [address] [facility] [place] [address], [facility] Hemoglobin (Bld) [Mass/Vol] 12.4 g/dL Normal 12.0-15.0 [facility] Comment on above: Performed By: #### 5 3 #### [facility] [address] [place] [address], [facility] IMMATURE GRANS 0.3 % Normal 0.0-1.0 The [facility] Comment on above: Performed By: #### 5 0103 #### [facility] [address] [place] [address], [facility] Lymphocytes (Bld) [#/Vol] 2.8 10*3/uL Normal 1.2-4.0 [facility] Comment on above: Performed By: #### 5 0103 #### [facility] [address] [place] [address], [facility] Lymphocytes/100 WBC (Bld) 29.8 % Normal 20.0-45.0 [facility] Comment on above: Performed By: #### 5 3 #### [facility] [address] [place] [address], [facility] MCH (RBC) [Entitic mass] 25.2 pg Low 27.0-33.0 [facility] Comment on above: Performed By: #### 5 3 #### [facility] [address] [place] [address], [facility] MCHC (RBC) [Mass/Vol] 29.7 g/dL Low 32.0-35.0 [facility] Comment on above: Performed By: #### 5 3 #### [facility] [address] [place] [address], [facility] MCV (RBC) [Entitic vol] 85.0 fL Normal 82.0-98.0 [facility] Comment on above: Performed By: #### 5 0103 #### [facility] [address] [place] [address], [facility] Monocytes (Bld) [#/Vol] 0.7 10*3/uL Normal 0.1-1.0 [facility] Comment on above: Performed By: #### 5 3 #### [facility] [address] [place] [address], [facility] MONOS 7.2 % Normal 5.0-12.0 [facility] Comment on above: Performed By: #### 5 0103 #### [facility] [address] [place] [address], [facility] Neutrophils/100 WBC (Bld) 61.0 % Normal 40.0-72.0 [facility] Comment on above: Performed By: #### 5 0103 #### [facility] [address] [place] [address], [facility] Nucleated RBC/100 WBC (Bld) [Ratio] 0 % Normal 0-0 [facility] Comment on above: Performed By: #### 5 0103 #### [facility] [address] [place] [address], [facility] PLAT CNT 210 10*3/uL Normal 150-400 [facility] Comment on above: Performed By: #### 5 0103 #### [facility] [address] [place] [address], [facility] RBC (Bld) [#/Vol] 4.92 10*6/uL Normal 3.80-5.00 The [facility] Comment on above: Performed By: #### 5 0103 #### [facility] [address] [place] [address], [facility] WBC (Bld) [#/Vol] 9.29 10*3/uL Normal 4.00-10.60 The [facility] Comment on above: Performed By: #### 5 0103 #### [facility] [address] PROTHROMBIN TIMEon 11--202 0 INR Coag (PPP) [Relative time] 0.82 {INR} Low 0.91-1.16 [facility] Comment on above: Result Comment: ACCC P RECOMMENDED INR FOR WARFARIN THERAPY ------- ------- CONDITION INR PROPHYLAXIS OF VENOUS THROMBOSIS 2-3 (HIGH-RISK SURGERY) TREATMENT OF VENOUS THROMBOSIS 2-3 TREATMENT OF PULMONARY EMBOLISM 2-3 PREVENTION OF SYSTEMIC EMBOLISM: 2-3 ACUTE MYOCARDIAL INFARCTION TISSUE HEART VALVES VALVULAR HEART DISEASE ATRIAL FIBRILLATION RECURRENT SYSTEMIC EMBOLISM MECHANICAL HEART VALVE 2.5-3.5 FROM: ORAL ANTICOAGULANTS. MECHANISM OF ACTION, CLINICAL EFFECTIVENESS, AND OPTIMAL THERAPEUTIC RANGE. CHEST 1995;108:231S-246S. Performed By: #### 5 6101, [address] #### [address] PT Coag (PPP) [Time] 11.3 s Low 12.3-14.8 [facility] Comment on above: Result Comment: ALL RESULTS MUST BE INTERPRETED WITH RESPECT TO BLOOD DRAWING ARTIFACT OR DILUTION ERROR OF ANTICOAGULANT AT THE TIME OF SAMPLING. Performed By: #### 5 6101, [address] #### [address] EYE FOR FOREIGN BODY04-12 EYE FOR FOREIGN BODY [facility] Department of Radiology [address] [place] [id number] Patient Name: ABBEY SWARTZ : 1970 Sex: F Age: Race: White Pt. 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 COMPARISON: None IMPRESSION: Unremarkable orbits. No radiopaque foreign body identified. Clear paranasal sinuses. Electronically signed: Sanjuana Keith. Transcribed by: [email or web address], User Resident: Electronically Signed by: SANJUANA KEITH @ 04/12/2020 08:45 AM Normal [facility] MRI ANKLE WO CONTRAST RIGHTo n 04-12-2020 MRI ANKLE WO CONTRAST RIGHT [facility] Department of Radiology [address] [place] [id number] Patient Name: ABBEY SWARTZ : 1970 Sex: F Age: Race: White Pt. 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 [facility]LY [facility] Req. 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 COMPARISON: None. FINDINGS: Achilles tendon appropriate Plantar fascia and sinus Tarsi appropriate No fracture or destructive lesion Large osteochondritic lesion at the talar dome medial aspect with some collapse of the bone and subchondral cyst formation. This appears to be subacute or chronic without underlying bone edema. There is some arthritic irregularity at the articulation between the medial malleolus and the osteochondritic process Subtalar joint appropriate Tendons of the tarsal tunnel and perineal tendons appropriate IMPRESSION: 1. 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 Electronically signed: Sanjuana Keith. Transcribed by: [email or web address], User Resident: Electronically Signed by: SANJUANA KEITH @ 04/12/2020 12:00 PM Normal [facility] Comment on above: Order Comment: Pleas e Evaluate MRI FOOT WO CONTRAST RIGHTon 04-12-2020 MRI FOOT WO CONTRAST RIGHT [facility] Department of Radiology [address] [place] [address] Patient Name: ABBEY SWARTZ : 1970 Sex: F Age: Race: White Pt. 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 CONTRAST: None COMPARISON: None. FINDINGS: Osteochondritic lesion demonstrated within the medial talar dome described on the ankle MRI. Plantar fascia is appropriate Lisfranc ligament appropriate Sesamoid bones adjacent to the base of the first metatarsal are unremarkable There is bone edema involving the proximal shaft of the fourth metatarsal consistent with an stress fracture. No displacement and no soft tissue mass. No other fractures identified IMPRESSION: 1. Stress fracture involving proximal shaft fourth metatarsal. Electronically signed: Sanjuana Keith. Transcribed by: [email or web address], User Resident: Electronically Signed by: SANJUANA KEITH @ 04/12/2020 12:15 PM Normal [facility] Comment on above: Order Comment: Niecy gleason Evaluate Basic Metabolic Panelon - Calcium mass conc 8.8 mg/dL Normal 8.2-10.2 [facility] Comment on above: Performed By: #### C BC, BMP #### [facility] [address] Chloride molar conc 103 mmol/L Normal 95-114 [facility] Comment on above: Performed By: #### C BC, BMP #### [facility] [address] CO2 molar conc 26.6 mmol/L Normal 22.0-30.0 [facility] Comment on above: Performed By: #### C BC, BMP #### [facility] [address] Creatinine mass conc 0.71 mg/dL Normal 0.44-1.03 [facility] Comment on above: Performed By: #### C BC, BMP #### [facility] [address] [place] [address] [place] Creatinine mass conc 101.3763311929 mg/dL Normal [facility] Comment on above: Result Comment: PERF ORMED BY: [place] [address] PATHOLOGIST CALL TAKER BIANCA GARG M.D. Performed By: #### C BC, BMP #### [address] Estimated GFR ( Bhavna > 60 Normal [facility] Comment on above: Result Comment: GFR estimated reference range: According to KDOQI guidelines, <60 ml/min/1.73m2 is sufficient to diagnose a patient with chronic kidney disease. Performed By: #### C BC, BMP #### [facility] [address] Estimated GFR (Non- Am > 60 Normal [facility] Comment on above: Performed By: #### C BC, BMP #### [facility] [address] Glucose mass conc 103 mg/dL High 70-100 [facility] Comment on above: Result Comment: Peculiar Glucose Reference Range is dependent on time and content of last meal. Glucose of more than 200 mg/dL in a nonstressed, ambulatory subject supports the diagnosis of Diabetes Mellitus. ADA recommended reference range Performed By: #### C BC, BMP #### [address] Potassium molar conc 4.0 mmol/L Normal 3.5-5.1 [facility] Comment on above: Performed By: #### C BC, BMP #### [address] Sodium molar conc 138 mmol/L Normal 136-146 [facility] Comment on above: Performed By: #### C BC, BMP #### [address] Urea nitrogen mass conc 9 mg/dL Normal 9-23 [facility] Comment on above: Performed By: #### C BC, BMP #### [address] Complete Blood Count Auto Di ffon 08-14-2018 Basophils #/vol (Bld) 0.0 10*3/uL Normal 0.0-0.2 [facility] Comment on above: Result Comment: PERF ORMED BY: [place] [address] PATHOLOGIST CALL TAKER BIANCA GARG M.D. Performed By: #### C BC, BMP #### [place] [address] [place] Basophils/100 WBC (Bld) 0.3 % Normal . [facility] Comment on above: Performed By: #### C BC, BMP #### [address] Eosinophils #/vol (Bld) 0.1 10*3/uL Normal 0.0-0.45 [facility] Comment on above: Performed By: #### C BC, BMP #### [address] Eosinophils/100 WBC (Bld) 1.9 % Normal . [facility] Comment on above: Performed By: #### C BC, BMP #### [address] Erythrocyte distribution width Ratio (RBC) 14.3 % Normal 11.9-15.3 [facility] Comment on above: Performed By: #### C BC, BMP #### [address] Hematocrit Volume Fraction (Bld) 30.5 % Low 34.0-46.4 [facility] Comment on above: Performed By: #### C BC, BMP #### [address] Hemoglobin mass conc (Bld) 10.0 g/dL Low 11.8-15.4 [facility] Comment on above: Performed By: #### C BC, BMP #### [address] Lymphocytes #/vol (Bld) 1.8 10*3/uL Normal 1.00-4.8 [facility] Comment on above: Performed By: #### C BC, BMP #### [address] Lymphocytes/100 WBC (Bld) 25.6 % Normal . [facility] Comment on above: Performed By: #### C BC, BMP #### [address] MCH Entitic mass (RBC) 32.9 g/dL Normal 32.0-35.0 [facility] Comment on above: Performed By: #### C BC, BMP #### [address] [address] [place] MCH Entitic mass (RBC) 30.0 pg Normal 24.7-34.3 [facility] Comment on above: Performed By: #### C BC, BMP #### [address] MCV Entitic volume (RBC) 91.3 fL Normal 80-100 [facility] Comment on above: Performed By: #### C BC, BMP #### [address] Monocytes #/vol (Bld) 0.6 10*3/uL Normal 0.0-0.8 [facility] Comment on above: Performed By: #### C BC, BMP #### [address] Monocytes/100 WBC (Bld) 8.1 % Normal . [facility] Comment on above: Performed By: #### C BC, BMP #### [address] Neutrophils #/vol (Bld) 4.4 10*3/uL Normal 1.8-7.7 [facility] Comment on above: Performed By: #### C BC, BMP #### [address] Neutrophils/100 WBC (Bld) 64.1 % Normal . [facility] Comment on above: Performed By: #### C BC, BMP #### [address] Nucleated RBC/100 WBC Ratio (Bld) 0.1 % Normal 0-0.5 [facility] Comment on above: Performed By: #### C BC, BMP #### [address] Platelet mean volume Entitic volume (Bld) 8.6 fL Normal 6.3-10.7 [facility] Comment on above: Performed By: #### C BC, BMP #### [address] Platelets #/vol (Bld) 254 10*3/uL Normal 150-450 [facility] Comment on above: Performed By: #### C BC, BMP #### [address] RBC #/vol (Bld) 3.35 10*6/uL Low 3.60-5.00 [facility] Comment on above: Performed By: #### C BC, BMP #### [address] WBC #/vol (Bld) 6.9 10*3/uL Normal 4.5-11.0 [place] [facility] Comment on above: Performed By: #### C BC, BMP #### [address] Complete Blood Count Auto Di ffon 08-11-2018 Basophils #/vol (Bld) 0.0 10*3/uL Normal 0.0-0.2 [facility] Comment on above: Result Comment: PERF ORMED BY: [place] [address] PATHOLOGIST CALL TAKER BIANCA GARG M.D. Performed By: #### C BC, CMP, PAB, B12, FOL #### [address] Basophils/100 WBC (Bld) 0.6 % Normal . [facility] Comment on above: Performed By: #### C BC, CMP, PAB, B12, FOL #### [address] Eosinophils #/vol (Bld) 0.1 10*3/uL Normal 0.0-0.45 [facility] Comment on above: Performed By: #### C BC, CMP, PAB, B12, FOL #### [address] Eosinophils/100 WBC (Bld) 1.2 % Normal . [facility] Comment on above: Performed By: #### C BC, CMP, PAB, B12, FOL #### [address] Erythrocyte distribution width Ratio (RBC) 14.1 % Normal 11.9-15.3 [facility] Comment on above: Performed By: #### C BC, CMP, PAB, B12, FOL #### [address] Hematocrit Volume Fraction (Bld) 30.4 % Low 34.0-46.4 [facility] Comment on above: Performed By: #### C BC, CMP, PAB, B12, FOL #### [address] Hemoglobin mass conc (Bld) 10.3 g/dL Low 11.8-15.4 [facility] Comment on above: Performed By: #### C BC, CMP, PAB, B12, FOL #### [address] Lymphocytes #/vol (Bld) 1.9 10*3/uL Normal 1.00-4.8 [facility] Comment on above: Performed By: #### C BC, CMP, PAB, B12, FOL #### [address] Lymphocytes/100 WBC (Bld) 23.9 % Normal . [facility] Comment on above: Performed By: #### C BC, CMP, PAB, B12, FOL #### [address] MCH Entitic mass (RBC) 30.9 pg Normal 24.7-34.3 [facility] Comment on above: Performed By: #### C BC, CMP, PAB, B12, FOL #### [address] MCH Entitic mass (RBC) 33.8 g/dL Normal 32.0-35.0 [facility] Comment on above: Performed By: #### C BC, CMP, PAB, B12, FOL #### [address] MCV Entitic volume (RBC) 91.5 fL Normal 80-100 [facility] Comment on above: Performed By: #### C BC, CMP, PAB, B12, FOL #### [facility] [address] [place] [address] Monocytes #/vol (Bld) 0.8 10*3/uL Normal 0.0-0.8 [facility] Comment on above: Performed By: #### C BC, CMP, PAB, B12, FOL #### [facility] [address] [place] [address] Monocytes/100 WBC (Bld) 9.7 % Normal . [facility] Comment on above: Performed By: #### C BC, CMP, PAB, B12, FOL #### [facility] [address] [place] [address] Neutrophils #/vol (Bld) 5.2 10*3/uL Normal 1.8-7.7 [facility] Comment on above: Performed By: #### C BC, CMP, PAB, B12, FOL #### [address] Neutrophils/100 WBC (Bld) 64.6 % Normal . [facility] Comment on above: Performed By: #### C BC, CMP, PAB, B12, FOL #### [facility] [address] [place] [address] Nucleated RBC/100 WBC Ratio (Bld) 0.2 % Normal 0-0.5 [facility] Comment on above: Performed By: #### C BC, CMP, PAB, B12, FOL #### [facility] [address] [place] [address] Platelet mean volume Entitic volume (Bld) 8.9 fL Normal 6.3-10.7 [facility] Comment on above: Performed By: #### C BC, CMP, PAB, B12, FOL #### [facility] [address] [place] [address] [place] Platelets #/vol (Bld) 234 10*3/uL Normal 150-450 [facility] Comment on above: Performed By: #### C BC, CMP, PAB, B12, FOL #### [facility] [address] [place] [address] RBC #/vol (Bld) 3.32 10*6/uL Low 3.60-5.00 [facility] Comment on above: Performed By: #### C BC, CMP, PAB, B12, FOL #### [facility] [address] [place] [address] WBC #/vol (Bld) 8.1 10*3/uL Normal 4.5-11.0 [facility] Comment on above: Performed By: #### C BC, CMP, PAB, B12, FOL #### [facility] [address] [place] [address] Comprehensive Metabolic Pane robbie 08-11-2018 Albumin mass conc 2.9 g/dL Low 3.2-5.5 [facility] Comment on above: Performed By: #### C BC, CMP, PAB, B12, FOL #### [address] Albumin/Globulin mass ratio 0.9 {ratio} Normal [facility] Comment on above: Performed By: #### C BC, CMP, PAB, B12, FOL #### [facility] [address] [place] [address] ALP enzyme act/vol 98 U/L High 32-92 [facility] Comment on above: Performed By: #### C BC, CMP, PAB, B12, FOL #### [facility] [address] [place] [address] ALT enzyme act/vol 34 U/L Normal 10-60 [facility] Comment on above: Performed By: #### C BC, CMP, PAB, B12, FOL #### [facility] [address] [place] [address] AST enzyme act/vol 19 U/L Normal 10-42 [facility] Comment on above: Performed By: #### C BC, CMP, PAB, B12, FOL #### [facility] [address] [place] [address] Bilirubin mass conc 0.5 mg/dL Normal 0.3-1.2 [facility] Comment on above: Performed By: #### C BC, CMP, PAB, B12, FOL #### [facility] [address] [place] [address] [place] Calcium mass conc 8.7 mg/dL Normal 8.2-10.2 [facility] Comment on above: Performed By: #### C BC, CMP, PAB, B12, FOL #### [facility] [address] Chloride molar conc 101 mmol/L Normal 95-114 [facility] Comment on above: Performed By: #### C BC, CMP, PAB, B12, FOL #### [facility] [address] CO2 molar conc 24.8 mmol/L Normal 22.0-30.0 [facility] Comment on above: Performed By: #### C BC, CMP, PAB, B12, FOL #### [facility] [address] Creatinine mass conc 111.3366446302 mg/dL [facility] Comment on above: Performed By: #### C BC, CMP, PAB, B12, FOL #### [facility] [address] [place] [address] Creatinine mass conc 0.63 mg/dL Normal 0.44-1.03 [facility] Comment on above: Performed By: #### C BC, CMP, PAB, B12, FOL #### [facility] [address] [place] [address] Estimated GFR ( Bhavna > 60 [facility] Comment on above: Result Comment: GFR estimated reference range: According to KDOQI guidelines, <60 ml/min/1.73m2 is sufficient to diagnose a patient with chronic kidney disease. Performed By: #### C BC, CMP, PAB, B12, FOL #### [facility] [address] [place] [address] Estimated GFR (Non- Am > 60 [facility] Comment on above: Performed By: #### C BC, CMP, PAB, B12, FOL #### [facility] [address] Globulin mass conc (S) 3.1 g/dL [facility] Comment on above: Performed By: #### C BC, CMP, PAB, B12, FOL #### [facility] [address] Glucose mass conc 138 mg/dL High 70-100 [facility] Comment on above: Result Comment: Peculiar Glucose Reference Range is dependent on time and content of last meal. Glucose of more than 200 mg/dL in a nonstressed, ambulatory subject supports the diagnosis of Diabetes Mellitus. ADA recommended reference range Performed By: #### C BC, CMP, PAB, B12, FOL #### [facility] [address] Potassium molar conc 3.8 mmol/L Normal 3.5-5.1 [facility] Comment on above: Performed By: #### C BC, CMP, PAB, B12, FOL #### [address] Protein mass conc 6.0 g/dL Low 6.1-7.9 [facility] Comment on above: Performed By: #### C BC, CMP, PAB, B12, FOL #### [address] Sodium molar conc 136 mmol/L Normal 136-146 [facility] Comment on above: Performed By: #### C BC, CMP, PAB, B12, FOL #### [facility] [address] [place] [address] Urea nitrogen mass conc 11 mg/dL Normal 9-23 [facility] Comment on above: Performed By: #### C BC, CMP, PAB, B12, FOL #### [address] Folateon 08-11-2018 Folate 17.5 ng/mL Normal [facility] Comment on above: Result Comment: Yelena te reference range: >5.9 ng/ml The WHO technical consultation on folate and vitamin b12 deficiencies has determined that folate concentrations less than 4 ng/ml are considered deficient. PERFORMED BY: [place] [address] PATHOLOGIST CALL TAKER BIANCA GARG M.D. Performed By: #### C BC, CMP, PAB, B12, FOL #### [facility] [address] Prealbuminon 08-11-2018 Prealbumin mass conc 16.5 mg/dL Low 18.0-38.0 [facility] Comment on above: Performed By: #### C BC, CMP, PAB, B12, FOL #### [facility] [address] [place] [address] Vitamin B12on 08-11-2018 Cobalamin (Vitamin B12) mass conc 146 pg/mL Low 180-914 [facility] Comment on above: Performed By: #### C BC, CMP, PAB, B12, FOL #### [address] Urinalysison 08-10-2018 Appearance Nom (U) Clear Normal Clear [facility] Comment on above: Order Comment: Name Collection Type: Clean-Voided Midstream Performed By: #### U A #### [address] Bilirubin,Urine Negative Normal Negative [facility] Comment on above: Order Comment: Name Collection Type: Clean-Voided Midstream Performed By: #### U A #### [address] Color Nom (U) Yellow Normal Yellow [facility] Comment on above: Order Comment: Name Collection Type: Clean-Voided Midstream Performed By: #### U A #### [facility] [address] [place] [address] Glucose Ql (U) Normal Normal Normal [facility] Comment on above: Order Comment: Name Collection Type: Clean-Voided Midstream Performed By: #### U A #### [facility] [address] [place] [address] Ketones Ql (U) Negative Normal Negative [facility] Comment on above: Order Comment: Name Collection Type: Clean-Voided Midstream Performed By: #### U A #### [facility] [address] [place] [address] Leukocyte esterase Test strip Ql (U) Negative Normal Negative [facility] Comment on above: Order Comment: Name Collection Type: Clean-Voided Midstream Performed By: #### U A #### [facility] [address] [place] [address] Nitrite,Urine Negative Normal Negative [facility] Comment on above: Order Comment: Name Collection Type: Clean-Voided Midstream Performed By: #### U A #### [facility] [address] [place] [address] Occult Blood,Urine Negative Normal Negative [facility] Comment on above: Order Comment: Name Collection Type: Clean-Voided Midstream Result Comment: PERF ORMED BY: [place] [address] PATHOLOGIST CALL TAKER BIANCA GARG M.D. Performed By: #### U A #### [facility] [address] [place] [address] pH (U) 6.5 [pH] Normal 5.0-9.0 [facility] Comment on above: Order Comment: Name Collection Type: Clean-Voided Midstream Performed By: #### U A #### [facility] [address] [place] [address] Protein mass conc (U) Negative Normal Negative [facility] Comment on above: Order Comment: Name Collection Type: Clean-Voided Midstream Performed By: #### U A #### [facility] [address] [place] [address] Specificy [place],Urine 1.025 Normal 1.001-1.030 [facility] Comment on above: Order Comment: Name Collection Type: Clean-Voided Midstream Performed By: #### U A #### [facility] [address] [place] [address] Urobilinogen,Urine Normal Normal Normal [facility] Comment on above: Order Comment: Name Collection Type: Clean-Voided Midstream Performed By: #### U A #### [facility] [address] [place] [address] Encounters Encounter Date Encounter Type Care Provider Facility Start: 07-03-2023 ambulatory [facility] Start: 11-28-2022 End: 11-29-2022 ambulatory DIXIE [facility] Start: 07-13-2022 Encounter for genera l adult medical examination without abnormal findings YING NAVARRO [facility] Start: 07-11-2022 End: 07-11-2022 ambulatory YING NAVARRO Facility:[facility] Start: 07-09-2022 End: 07-10-2022 ambulatory YING NAVARRO Facility:[facility] Start: 07-09-2022 End: 07-10-2022 Encounter for general adult medical examination without abnormal findings YING NAVARRO Facility:[facility] Start: 11-10-2021 ambulatory YING NAVARRO Facility: Start: 05-18-2020 End: 05-19-2020 ambulatory YARIEL MICK Facility:[facility] Start: 08-10-2018 End: 08-17-2018 Evaluation and management of inpatient NON STAFF Facility:[facility] Procedures Date Procedure Procedure Detail Performing Clinician Start: 05-18-2020 ANESTH LOWER LEG SURGERY FÁTIMA SALAZAR Start: 05-18-2020 DRAIN/INJ JOINT/BURSA W/O US YARIEL EBRAHEIM Start: 05-18-2020 NEEDLE LOCALIZATION BY XRAY YARIEL EBRAHEIM Start: 05-18-2020 REVISION OF LOWER LEG TENDON YARIEL EBRAHEIM Payers Date Payer Category Payer Self-pay 2018 Unknown [id number] 1971 Unknown [id number] [id number] 1971 Unknown [id number] [id number] [id number] 1971 Unknown [id number] 1971 Unknown [id number] [id number] [id number] 1959 Private Health Insurance [id number] 1959 Unknown [id number] 1959 Unknown [id number] Unknown [id number] Progress note 12-19-2022 Note Date & Type Note Facility 12-19-2022 Note Patient ID: Abbey butler is a 52 y.o. female. Large Joint: R knee on 12/19/2022 3:14 PM Indications: pain Details: 25 G needle, anterolateral approach Outcome: tolerated well, no immediate complications After discussion of risks, benefits, and alternatives, the patient elected to proceed with an injection into the right knee joint. Confirmed that the patient does not have history of prior adverse reactions, active infections, or relevant allergies. There was no erythema and the skin was clear. The skin was sterilized with Alcohol. A 21 gauge needle was inserted into the rightKnee joint via a Anterolateral approach. Each site was injected with a mixture of 3cc of Kenalog 10mg/ml and 5cc of 1% lidocaine. The injection was completed without complication and a bandage was applied. Consent was given by the patient. Immediately prior to procedure a time out was called to verify the correct patient, procedure, equipment, personal support worker and site/side marked as required. Patient was prepped and draped in the usual sterile fashion. [facility] Progress note 11-28-2022 Note Date & Type Note Facility 11-28-2022 Note Chief complaint: Rig ht knee/LE HPI: 51 y.o female well known to me after a work related injury, sustained a tibia plateau fracture underwent fixation of this and has gone on to heal. She continues with stiffness in her knee joint, has intermittent pain, worse with increased activity and better with rest. She take Mobic which also helps her. Reports worsening pain in the medial aspect of her knee Review of Systems Constitutional: Negative for chills, fatigue and fever. Musculoskeletal: Negative for arthralgias. Knee Musculoskeletal Exam Gait Antalgic: right Limp: right Inspection Right Erythema: none Effusion: none Edema: none Ecchymosis: none Palpation Right Increased warmth: none Crepitus: medial and lateral Tenderness: present Lateral joint line: mild Medial joint line: moderate Range of Motion Right Active extension: 5 Active flexion: 120 Strength Right Extension: 5/5. Flexion: 5/5. Neurovascular Right Patella reflex: normal Dorsalis pedis: 2+ General Constitutional: well-developed and well-nourished Psychiatric: normal mood and affect and no acute distress Neurological: alert and oriented x3 Skin: intact 1. Closed fracture of right tibial plateau with routine healing, subsequent encounter - meloxicam (Mobic) 15 mg tablet; Take 1 tablet (15 mg) by mouth in the morning. Dispense: 30 tablet; Refill: 3 Plan: C9 for CSI Right knee [facility] Summary Purpose Family History No Family History Records FoundNo Family History Records FoundNo Family History Records FoundNo Family History Records Found Advance Directives No Advanced Directives Records FoundNo Advanced Directives Records FoundNo Advanced Directives Records FoundNo Advanced Directives Records Found Additional Source Comments INFORMATION SOURCE (unrecogn ized section and content) DATE CREATED AUTHOR 08/22/2018 [facility] DATE CREATED AUTHOR AUTHOR'S ORGANIZ ATION 03/15/2021 [facility] DATE CREATED AUTHOR AUTHOR'S ORGANIZ ATION 07/22/2022 [facility] DATE CREATED AUTHOR AUTHOR'S ORGANIZ ATION 07/20/2023 [facility] FOR RECORDS PERTAINING TO PATIENTS WHO ARE OR HAVE BEEN ENROLLED IN A CHEMICAL DEPENDENCY/SUBSTANCEABUSE PROGRAM, SOME INFORMATION MAY BE OMITTED. This clinical summary was aggregated from multiple sources. Caution should be exercised in using it in the provision of clinical care. This summary normalizes information from multiple sources, and as a consequence, information in this document may materially change the coding, format and clinical context of patient data. In addition, data may be omitted in some cases. CLINICAL DECISIONS SHOULD BE BASED ON THE PRIMARY CLINICAL RECORDS. [facility] [employer] provides no warranty or guarantee of the accuracy or completeness of information in this document.
[2023-07-21 07:07] LABS: Basophils Percent Auto 0.3 % (0.2-2.0); Eosinophils Absolute Auto 0.1 10^3/uL (0.0-0.7); Hemoglobin 12.7 g/dL (12.0-16.0); Immature Granulocytes Abs Auto 0.02 10^3/uL (0.00-0.03); Immature Granulocytes Pct Auto 0.2 % (0.0-0.5); Lymphocytes Absolute Auto 3.1 10^3/uL (1.2-3.8); Lymphocytes Percent Auto 34.4 % (20.5-60.0); Mean Corpuscular HGB Conc 31.8 g/dL (29.9-35.2); Mean Corpuscular Hemoglobin 28.5 pg (26.7-34.0); Mean Corpuscular Volume 89.7 fL (81.0-99.0); Monocytes Absolute Auto 0.6 10^3/uL (0.3-0.8); Monocytes Percent Auto 6.8 % (1.7-12.0); Neutrophils Absolute Auto 5.1 10^3/uL (1.4-6.5); Neutrophils Percent Auto 57.3 % (43.0-75.0); Platelet Count 165 10^3/uL (150-450); Red Blood Count 4.46 10^6/uL (4.20-5.40); Red Cell Distribution Width 14.7 % (11.0-15.0); White Blood Count 8.9 10^3/uL (4.0-11.0)
[2023-07-21 07:56] LABS: Alanine Aminotransferase 80 U/L (14-59); Albumin Level 3.7 g/dL (3.4-5.0); Alkaline Phosphatase 120 U/L (46-116); Anion Gap 14.2; Aspartate Amino Transferase 42 U/L (15-37); BUN Creatinine Ratio 17.3; Bilirubin Total 0.3 mg/dL (0.2-1.0); Calcium 8.5 mg/dL (8.5-10.1); Carbon Dioxide 27.6 mmol/L (21.0-32.0); Chloride 103 mmol/L (98-107); Chol HDL Ratio 6.1; Cholesterol 213 mg/dL (<=200); Estimated GFR (African America >60 (>=60); Estimated GFR (Non-African Ame >60 (>=60); Free T3 2.32 pg/mL (2.18-3.98); Globulin 3.8 g/dL; Glucose 126 mg/dL (74-106); HDL Cholesterol 35 mg/dL (40-60); Potassium 3.8 mmol/L (3.5-5.1); Sodium 141 mmol/L (136-145); Thyroid Stimulating Hormone 9.887 uIU/mL (0.358-3.740); Total Protein 7.5 g/dL (6.4-8.2); Triglycerides 134 mg/dL (<=150); VLDL CHOLESTEROL 26.8 mg/dL
[2023-07-21 08:00] LABS: Estimated Average Glucose 192 mg/dL; Glycohemoglobin A1C 8.3 % (4.5-6.2)
[2023-07-23 12:11] LABS: Insulin 72.5 uIU/mL (2.6-24.9)
== END 2023-07-21 06:37 | disposition home or self-care (01) ==
LOC: LAB 06:36
PROVIDERS: PCP Nurse Practitioner Family; Visit Provider Nurse Practitioner Family
DX: Z00.00 Encounter for general adult medical examination without abnormal findings (principal)
CPT/HCPCS: 36415; 80053; 80061; 82306; 83036; 83525; 83540; 84436; 84443; 84481; 85025

== ENCOUNTER 2023-09-12 15:07 | Outpatient (OUT) | payer OTHER, SELFPAY ==
--- OUTSIDE RECORDS SUMMARY | 2023-09-12 15:29 | XMS_ITS | CCD ---
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 Name Role Phone NON STAFF Primary Care Unavailable Erica Preston Consulting Unavailable Rizkalla, Sameh Admitting Unavailable Rizkalla, Sameh Attending Unavailable EBRAHEIM, YARIEL Admitting Unavailable EBRAHEIM, YARIEL Attending Unavailable UNKNOWN, PHYSICIAN Referring Unavailable UNKNOWN, PHYSICIAN Primary Care Unavailable FÁTIMA SALAZAR Surgeon Unavailable DC Procedure Practitioner Unavailab le DC Procedure Practitioner Unavailab le EBRAHEIM, YARIEL Surgeon Unavailable RAMON, YING Primary Care Unavailable RAMON, YING Admitting Unavailable RAMON, YING Attending Unavailable RAMON, YING Attending Unavailable RAMON, YING Consulting Unavailable RAMON, YING Primary Care Unavailable RAMON, YING Admitting Unavailable RAMON, YING Attending Unavailable RAMON, YING Consulting Unavailable RAMON, YING Primary Care Unavailable RAMON, YING Admitting Unavailable DIXIE RAMOS Attending Unavailable DIXIE RAMOS Attending Unavailable DIXIE RAMOS Referring Unavailable Allergies Allergy Classification Reported Allergen(s) Allergy Type Date of Onset Reaction(s) Facility (1 source) Naproxen Drug Allergy 08-10-2018 [facility] Repository (3 sources) Naproxen Drug Allergy 03-27-2015 [facility] Repository (1 source) Naproxen Drug Allergy 05-18-2020 [facility] Repository (1 source) Naproxen; Translations: [NAPROXEN SODIUM] Drug Allergy 05-27-2022 [facility] Repository Problems Active Problems Problem Classification Problem [...] Name Value Interpretation Reference Range Facility 36on 08-21-2023 36 Approving, but needs appt for additional refills. [facility] 36on 07-19-2023 36 Approving, but needs appt for additional refills. [facility] 36on 06-09-2023 36 Approving, but needs appt for additional refills. [facility] 36on 05-09-2023 36 Approving, but needs appt for additional refills. Normal [facility] Office Visiton 12-19-2022 Follow-up visit [id number] Jovita Swartzvirgie Hull 1970 F Date Provider Department Center 12/19/2022 DIXIE WINSTON MP Family History Family history unknown: Yes Family Status - Relation Status Age at Mother Father Level of Service:08131 DC OFFICE/OUTPT VISIT,PROCEDURE ONLY Reason for Visit and Comments: Follow-up [808730] Pain [136] [facility] Follow-Upon 11-28-2022 Follow-Up [id number] Abbey Swartz R 1970 F Provider Department Center 11/28/2022 DIXIE WINSTON MP Family History Family history unknown: Yes Level of Service:44328 DC OFFICE/OUTPATIENT ESTABLISHED LOW MDM 20-29 MIN Reason for Visit and Comments: Follow-up [502021] Pain [136] [facility] 36on 11-09-2022 36 User notified patien t that refill was approved and in order for future refills she would need to keep further appointment. Patient verbalized understanding. Patient appointment is scheduled for 11/21/2022 @1:15 with Dixie Ramos. No further action is needed. Normal [facility] 36on 11-08-2022 36 Approving, but needs appt for additional refills. Normal [facility] 36on 10-06-2022 36 Approving, but needs appt for additional refills. Normal [facility] INSULINon 07-11-2022 Insulin 27.8 uIU/mL Critically high 2.6-24.9 [facility] Comment on above: Performed By: #### I NSULIN #### [facility] [address] [address] [address] Heather CALL BLD IMMUNO SCREENon 06-20 OCCULT BLOOD Negative Normal NEGATIVE [facility] Comment on above: Performed By: #### O BSCRN #### [facility] [address] [place] [address] Dr. Heather Del Toro CBC AUTO DIFFon 07-09-2022 BASO # 0.0 103/ul Normal 0.0-0.1 [facility] Comment on above: Performed By: #### C BC #### [facility] [address] [place] [address] Dr. Heather Del Toro Basophils/100 WBC (Bld) 0.2 % Normal 0.2-2.0 [facility] Comment on above: Performed By: #### C BC #### [facility] [address] [place] [address] Dr. Heather Del Toro EO # 0.1 103/ul Normal 0.0-0.7 [facility] Comment on above: Performed By: #### C BC #### [facility] [address] [place] [address] Dr. Heather Del Toro Eosinophils/100 WBC (Bld) 1.0 % Normal 0.9-7.0 [facility] Comment on above: Performed By: #### C BC #### [facility] [address] [place] [address] Dr. Heather Del Toro Erythrocyte distribution width (RBC) [Ratio] 14.9 % Normal 11.0-15.0 [facility] Comment on above: Performed By: #### C BC #### [facility] [address] [place] [address] Dr. Heather Del Toro Hematocrit (Bld) [Volume fraction] 36.6 % Normal 36.0-48.0 [facility] Comment on above: Performed By: #### C BC #### [facility] [address] [place] [address] Dr. Heather Del Toro Hemoglobin (Bld) [Mass/Vol] 12.5 g/dL Normal 12.0-16.0 [facility] Comment on above: Performed By: #### C BC #### [facility] [address] [place] [address] Dr. Heather Del Toro IG # 0.01 10e3/ul Normal 0.00-0.03 [facility] Comment on above: Performed By: #### C BC #### [facility] [address] [address] [address] Heather Del Toro IG % 0.1 % Normal 0.0-0.5 [facility] Comment on above: Performed By: #### C BC #### [facility] [address] [place] [address] Dr. Heather Del Toro LYMPH # 3.2 103/ul Normal 1.2-3.8 [facility] Comment on above: Performed By: #### C BC #### [facility] [address] [place] [address] Dr. Heather Del Toro Lymphocytes/100 WBC (Bld) 39.0 % Normal 20.5-60.0 [facility] Comment on above: Performed By: #### C BC #### [facility] [address] [place] [address] Dr. Heather Del Toro MANUAL DIFF REQ NO Normal [facility] Comment on above: Performed By: #### C BC #### [facility] [address] [place] [address] Dr. Heather Del Toro MCH (RBC) [Entitic mass] 27.2 pg Normal 26.7-34.0 [facility] Comment on above: Performed By: #### C BC #### [facility] [address] [place] [address] Dr. Heather Del Toro MCHC (RBC) [Mass/Vol] 34.2 g/dL Normal 29.9-35.2 [facility] Comment on above: Performed By: #### C BC #### [facility] [address] [place] [address] Dr. Heather Del Toro MCV (RBC) [Entitic vol] 79.7 fL Critically low 81.0-99.0 [facility] Comment on above: Performed By: #### C BC #### [facility] [address] [place] [address] Dr. Heather DelT oro MONO # 0.6 103/ul Normal 0.3-0.8 [facility] Comment on above: Performed By: #### C BC #### [facility] [address] [place] [address] Dr. Heather Del Toro Monocytes/100 WBC (Bld) 6.7 % Normal 1.7-12.0 [facility] Comment on above: Performed By: #### C BC #### [facility] [address] [place] [address] Dr. Heather Del Toro NEUT # 4.4 103/ul Normal 1.4-6.5 [facility] Comment on above: Performed By: #### C BC #### [facility] [address] [place] [address] Dr. Heather Dle Toro Neutrophils/100 WBC (Bld) 53.0 % Normal 43.0-75.0 [facility] Comment on above: Performed By: #### C BC #### [facility] [address] [place] [address] Dr. Heather Del Toro Platelet mean volume (Bld) [Entitic vol] 11.2 fL Normal 9.5-13.5 [facility] Comment on above: Performed By: #### C BC #### [facility] [address] [place] [address] Dr. Heather Del Toro PLT 168 103/ul Normal 150-450 [facility] Comment on above: Performed By: #### C BC #### [facility] [address] [place] [address] Dr. Heather Del Toro RBC 4.59 106/ul Normal 4.20-5.40 [facility] Comment on above: Performed By: #### C BC #### [facility] [address] [place] [address] Dr. Heather Del Toro WBC 8.3 103/ul Normal 4.0-11.0 [facility] Comment on above: Performed By: #### C BC #### [facility] [address] [place] [address] Dr. Heather Del Toro FREE THYROXINE INDEX T7on FTI 3.30 Normal 1.30-4.50 [facility] Comment on above: Performed By: #### L IPID, CMP, T7, TSH #### [facility] [address] [address] [address] Heather Del Toro T3U 32.0 % Normal 30.0-39.0 [facility] Comment on above: Performed By: #### L IPID, CMP, T7, TSH #### [facility] [address] [place] [address] Dr. Heather Del Toro T4 [Mass/Vol] 10.30 ug/dL Normal 4.80-13.90 [facility] Comment on above: Performed By: #### L IPID, CMP, T7, TSH #### [facility] [address] [address] [address] Heather Del Toro GLYCOHEMOGLOBIN A1Con 2022 ADA RECOMMENDATION SEE BELOW Normal [facility] Comment on above: Result Comment: ADA RECOMMENDED LIMIT 4.0 - 6.0 ADA THERAPEUTIC TARGET < 7.0 ACTION SUGGESTED > 7.0 Performed By: #### A 1C #### [facility] [address] [place] [address] Dr. Heather Del Toro Glucose [Mass/Vol] 146 mg/dL Normal [facility] Comment on above: Performed By: #### A 1C #### [facility] [address] [place] [address] Dr. Heather Del Toro HbA1c (Bld) [Mass fraction] 6.7 % Critically high 4.5-6.2 [facility] Comment on above: Performed By: #### A 1C #### [facility] [address] [place] [address] Dr. Heather Del Toro IRONon 07-09-2022 Iron [Mass/Vol] 26.0 ug/dL Critically low 50.0-170.0 [facility] Comment on above: Performed By: #### I YAKOV #### [facility] [address] [place] [address] Dr. Heather Del Toro LIPID PROFILEon 07-09-2022 CHOL-HDL RATIO NORM SEE BELOW Normal [facility] Comment on above: Result Comment: 3.3 - 4.4 LOW RISK 4.4 - 7.1 AVERAGE RISK 7.1 - 11.0 MODERATE RISK >11.0 HIGH RISK Performed By: #### L IPID, CMP, T7, TSH #### [facility] [address] [address] [address] Heather Del Toro Cholesterol [Mass/Vol] 212 mg/dL Critically high <=200 [facility] Comment on above: Performed By: #### L IPID, CMP, T7, TSH #### [facility] [address] [address] [address] Heather Del Toro Cholesterol in HDL [Mass/Vol] 39 mg/dL Critically low 40-60 [facility] Comment on above: Performed By: #### L IPID, CMP, T7, TSH #### [facility] [address] [address] [address] Heather Del Toro Cholesterol in LDL [Mass/Vol] 150.6 mg/dL Normal [facility] Comment on above: Performed By: #### L IPID, CMP, T7, TSH #### [facility] [address] [address] [address] Heather Del Toro Cholesterol.total/Ch olesterol in HDL [Mass ratio] 5.4 {ratio} Normal [facility] Comment on above: Performed By: #### L IPID, CMP, T7, TSH #### [facility] [address] [address] [address] Heather Del Toro HDL NORMAL > or = 60 mg/dl - LO W CARDIOVASCULAR RISK <40 mg/dl - HIGH CARDIOVASCULAR RISK Normal [facility] Comment on above: Performed By: #### L IPID, CMP, T7, TSH #### [facility] [address] [address] [address] Heather Del Toro LDL CALC NORMAL SEE BELOW Normal [facility] Comment on above: Result Comment: <100 mg/dl OPTIMAL 100 - 129 mg/dl NEAR OR ABOVE OPTIMAL 130 - 159 mg/dl BORDERLINE HIGH 160 - 189 mg/dl HIGH >190 mg/dl VERY HIGH Performed By: #### L IPID, CMP, T7, TSH #### [facility] [address] [address] [address] Heather Del Toro Triglyceride [Mass/Vol] 112 mg/dL Normal <=150 [facility] Comment on above: Performed By: #### L IPID, CMP, T7, TSH #### [facility] [address] [address] [address] Heather Del Toro VLDL CALC 22.4 mg/dL Normal [facility] Comment on above: Performed By: #### L IPID, CMP, T7, TSH #### [facility] [address] [address] [address] Heather Del Toro PROF 14(COMP METB)on 023 Albumin [Mass/Vol] 3.9 g/dL Normal 3.4-5.0 [facility] Comment on above: Performed By: #### L IPID, CMP, T7, TSH #### [facility] [address] [place] [address] Dr. Heather Del Toro Albumin/Globulin [Mass ratio] 1.2 {ratio} Normal [facility] Comment on above: Performed By: #### L IPID, CMP, T7, TSH #### [facility] [address] [address] [address] Heather Del Toro ALP [Catalytic activity/Vol] 132 U/L Critically high 46-116 [facility] Comment on above: Performed By: #### L IPID, CMP, T7, TSH #### [facility] [address] [address] [address] Heather Del Toro ALT [Catalytic activity/Vol] 93 U/L Critically high 14-59 [facility] Comment on above: Performed By: #### L IPID, CMP, T7, TSH #### [facility] [address] [address] [address] Heather Del Toro Anion gap [Moles/Vol] 11.5 mmol/L Normal [facility] Comment on above: Performed By: #### L IPID, CMP, T7, TSH #### [facility] [address] [place] [address] Dr. Heather Del Toro AST [Catalytic activity/Vol] 43 U/L Critically high 15-37 [facility] Comment on above: Performed By: #### L IPID, CMP, T7, TSH #### [facility] [address] [address] [address] Heather Del Toro Bilirubin [Mass/Vol] 0.3 mg/dL Normal 0.2-1.0 [facility] Comment on above: Performed By: #### L IPID, CMP, T7, TSH #### [facility] [address] [address] [address] Heather Del Toro Calcium [Mass/Vol] 9.1 mg/dL Normal 8.5-10.1 [facility] Comment on above: Performed By: #### L IPID, CMP, T7, TSH #### [facility] [address] [address] [address] Heather Del Toro Chloride [Moles/Vol] 104 mmol/L Normal 98-107 [facility] Comment on above: Performed By: #### L IPID, CMP, T7, TSH #### [facility] [address] [place] [address] Dr. Heather Del Toro CO2 [Moles/Vol] 28.9 mmol/L Normal 21.0-32.0 [facility] Comment on above: Performed By: #### L IPID, CMP, T7, TSH #### [facility] [address] [address] [address] Heather Del Toro Creatinine [Mass/Vol] 0.73 mg/dL Normal 0.55-1.02 [facility] Comment on above: Performed By: #### L IPID, CMP, T7, TSH #### [facility] [address] [place] [address] Dr. Heather Del Toro EGFR-AF BARBADIAN >60 Normal >=60 [facility] Comment on above: Performed By: #### L IPID, CMP, T7, TSH #### [facility] [address] [place] [address] Dr. Heather Del Toro EGFR-NON AF BARBADIAN >60 Normal >=60 [facility] Comment on above: Performed By: #### L IPID, CMP, T7, TSH #### [facility] [address] [place] [address] Dr. Heather Del Toro Globulin (S) [Mass/Vol] 3.3 g/dL Normal [facility] Comment on above: Performed By: #### L IPID, CMP, T7, TSH #### [facility] [address] [address] [address] Heather Del Toro Glucose [Mass/Vol] 106 mg/dL Normal 74-106 [facility] Comment on above: Performed By: #### L IPID, CMP, T7, TSH #### [facility] [address] [address] [address] Heather Del Toro Potassium [Moles/Vol] 4.4 mmol/L Normal 3.5-5.1 [facility] Comment on above: Performed By: #### L IPID, CMP, T7, TSH #### [facility] [address] [place] [address] Dr. Heather Del Toro Protein [Mass/Vol] 7.2 g/dL Normal 6.4-8.2 [facility] Comment on above: Performed By: #### L IPID, CMP, T7, TSH #### [facility] [address] [address] [address] Heather Del Toro Sodium [Moles/Vol] 140 mmol/L Normal 136-145 [facility] Comment on above: Performed By: #### L IPID, CMP, T7, TSH #### [facility] [address] [address] [address] Heather Del Toro Urea nitrogen [Mass/Vol] 10.0 mg/dL Normal 7.0-18.0 [facility] Comment on above: Performed By: #### L IPID, CMP, T7, TSH #### [facility] [address] [place] [address] Dr. Heather Del Toro Urea nitrogen/Creatinine [Mass ratio] 13.7 mg/mg Normal [facility] Comment on above: Performed By: #### L IPID, CMP, T7, TSH #### [facility] [address] [place] [address] Dr. Heather Del Toro TSHon 07-09-2022 TSH 4.912 uIU/mL Critically high 0.358-3.740 [facility] Comment on above: Performed By: #### L IPID, CMP, T7, TSH #### [facility] [address] [address] [address] Heather Del Toro ANKLE RIGHT [address] [facility] 05-18-20 20 ANKLE RIGHT 2 [facility] [address] [place] [id number] Patient Name: ABBEY SWARTZ : 1970 [...] JOINT CORTICOSTEROID INJECTION Exam: ANKLE RIGHT 2 [facility] ANKLE RIGHT 2 [facility] 05/18/2020 12:53 PM CLINICAL INDICATIONS: RIGHT PERCUTANEOUS [...] IMPRESSION: Electronically signed: Shivam Church. Transcribed by: [email or web address], User Resident: Electronically Signed by: SHIVAM CHURCH @ 05/18/2020 01:33 PM Normal [facility] Comment on above: Order Comment: RIGHT PERCUTANEOUS ACHILLES TENDON LENGTHENING WITH RIGHT ANKLE JOINT CORTICOSTEROID INJECTION Operative Reporton 0 Operative Report MR#: [id number] [facility] Pt. Name: Abbey Swartz Room #: 0C [...] were confirmed. We began by performing a Pedro style Achilles tenotomy. Through 3 percutaneous stab [...] Villarreal MD Date Trans: 05/18/2020 06:45 P/angie [id number] Normal [facility] POC GLUCOSE LABon 05-18-2020 Glucose [Mass/Vol] 101 mg/dL High 70-100 [facility] Comment on above: Performed By: #### 8 [id number] #### [facility] [address] Glucose [Mass/Vol] 106 mg/dL High 70-100 [facility] Comment on above: Performed By: #### 8 [id number] ####[facility] [address] *MRSA/MSSA DNA NASALon 05-16 *MRSA/MSSA DNA NASAL Clinical Report: (D ) Specimen: NASAL SWAB Collected: 05/16/2020 10:34 Status: Final Last Updated: 05/17/2020 09:45 MSSA DNA (Final) Negative MRSA DNA (Final) Negative Normal [facility] Comment on above: Performed By: #### 3 [id number] #### [facility] [address] *SARS-CoV-2 COVID-19on 05-16 SARS-CoV-2 (COVID-19) RNA NEVILLE+probe Ql (Unsp spec) Not detected Normal Not Detected [facility] Comment on above: Order Comment: The A ptima SARS-CoV-2 assay is a nucleic acid amplification test intended for the qualitative detection of RNA from SARS-CoV-2 isolated and purified from nasopharyngeal (LINOLEUM PRINTER),oropharyngeal (OP), nasal swab, sputum, and bronchoalveolar lavage (BAL) specimens from patients with signs and symptoms of infection who are suspected of COVID-19. Results are for the identification of SARS-CoV-2 RNA. The SARS-CoV-2 RNA is generally detectable during the acute phase of infection. The Aptima SARS-CoV-2 Assay on the [employer] system is intended for use by laboratory personnel specifically instructed and trained in the operation of the [employer] system. The Aptima SARS-CoV-2 assay is [...] information. Performed By: #### 3 [id number] #### [facility] [address] APTTon 05-16-2020 aPTT Coag (Bld) [Time] 32.1 s Normal 25.0-35.0 [facility] Comment on above: Result Comment: ALL RESULTS [...] THIS PURPOSE. Performed By: #### 5 [id number], [id number] #### [facility] [address] [place] [address], [facility] BASIC METABOLIC PANELon 11-2 8-2020 Calcium [Mass/Vol] 9.5 mg/dL Normal 8.6-10.3 [facility] Comment on above: Performed By: #### 0 [id number] #### [facility] [address] [place] [address], [facility] Chloride [Moles/Vol] 104 mmol/L Normal 98-107 [facility] Comment on above: Performed By: #### 0 [id number] #### [facility] [address] [place] [address], [facility] CO2 [Moles/Vol] 28 mmol/L Normal 21-31 [facility] Comment on above: Performed By: #### 0 0071 #### [facility] [address] [place] [address], [facility] Creatinine [Mass/Vol] 0.79 mg/dL Normal 0.60-1.20 [facility] Comment on above: Performed By: #### 0 [id number] #### [facility] [address] [place] [address], [facility] GFR/1.73 sq M.predicted among blacks MDRD (S/P/Bld) [Vol rate/Area] mL/min/{1.73_m2} Normal >60 [facility] Comment on above: Performed By: #### 0 0071 #### [facility] [address] GFR/1.73 sq M.predicted among non-blacks MDRD (S/P/Bld) [Vol rate/Area] mL/min/{1.73_m2} Normal >60 [facility] Comment on above: Performed By: #### 0 [id number] #### [facility] [address] Glucose [Mass/Vol] 116 mg/dL High 70-100 [facility] Comment on above: Performed By: #### 0 0071 #### [facility] [address] Potassium [Moles/Vol] 4.2 mmol/L Normal 3.5-5.1 [facility] Comment on above: Performed By: #### 0 [id number] #### [facility] [address] Sodium [Moles/Vol] 139 mmol/L Normal 136-145 [facility] Comment on above: Performed By: #### 0 [id number] #### [facility] [address] Urea nitrogen [Mass/Vol] 8 mg/dL Normal 7-25 [facility] Comment on above: Performed By: #### 0 [id number] #### [facility] [address] [place] [address], [facility] CBC W/DIFFon 05-16-2020 ABS IMM GRANS 0.0 10*3/uL Normal 0.0-0.2 The [facility] Comment on above: Performed By: #### 5 3 #### [facility] [address] ABS NEUTROPHILS 5.7 10*3/uL Normal 1.6-7.6 The [facility] Comment on above: Performed By: #### 5 3 #### [facility] [address] [place] [address], [facility] Basophils (Bld) [#/Vol] 0.0 10*3/uL Normal 0.0-0.2 The [facility] Comment on above: Performed By: #### 5 0103 #### [facility] [address] [place] [address], [facility] Basophils/100 WBC (Bld) 0.3 % Normal 0.0-1.0 The [facility] Comment on above: Performed By: #### 5 0103 #### [facility] [address] [place] [address], [facility] Eosinophils (Bld) [#/Vol] 0.1 10*3/uL Normal 0.0-0.5 The [facility] Comment on above: Performed By: #### 5 3 #### [facility] [address] [place] [address], [facility] Eosinophils/100 WBC (Bld) 1.4 % Normal 0.0-6.0 The [facility] Comment on above: Performed By: #### 5 3 #### [facility] [address] Erythrocyte distribution width (RBC) [Ratio] 16.6 % High 11.5-15.0 The [facility] Comment on above: Performed By: #### 5 3 #### [facility] [address] Hematocrit (Bld) [Volume fraction] 41.8 % Normal 36.0-45.0 [facility] Comment on above: Performed By: #### 5 3 #### [facility] [address] [place] [address], [facility] Hemoglobin (Bld) [Mass/Vol] 12.4 g/dL Normal 12.0-15.0 The [facility] Comment on above: Performed By: #### 5 3 #### [facility] [address] IMMATURE GRANS 0.3 % Normal 0.0-1.0 The [facility] Comment on above: Performed By: #### 5 0103 #### [facility] [address] Lymphocytes (Bld) [#/Vol] 2.8 10*3/uL Normal 1.2-4.0 The [facility] Comment on above: Performed By: #### 5 0103 #### [facility] [address] Lymphocytes/100 WBC (Bld) 29.8 % Normal 20.0-45.0 [facility] Comment on above: Performed By: #### 5 0103 #### [facility] [address] MCH (RBC) [Entitic mass] 25.2 pg Low 27.0-33.0 [facility] Comment on above: Performed By: #### 5 0103 #### [facility] [address] MCHC (RBC) [Mass/Vol] 29.7 g/dL Low 32.0-35.0 [facility] Comment on above: Performed By: #### 5 0103 #### [facility] [address] [place] [address], [facility] MCV (RBC) [Entitic vol] 85.0 fL Normal 82.0-98.0 [facility] Comment on above: Performed By: #### 5 0103 #### [facility] [address] [place] [address], [facility] Monocytes (Bld) [#/Vol] 0.7 10*3/uL Normal 0.1-1.0 [facility] Comment on above: Performed By: #### 5 3 #### [facility] [address] [place] [address], [facility] MONOS 7.2 % Normal 5.0-12.0 [facility] Comment on above: Performed By: #### 5 0103 #### [facility] [address] [place] [address], [facility] Neutrophils/100 WBC (Bld) 61.0 % Normal 40.0-72.0 [facility] Comment on above: Performed By: #### 5 0103 #### [facility] [address] [place] [address], [facility] Nucleated RBC/100 WBC (Bld) [Ratio] 0 % Normal 0-0 [facility] Comment on above: Performed By: #### 5 0103 #### [facility] [address] [place] [address], [facility] PLAT CNT 210 10*3/uL Normal 150-[address] [facility] Comment on above: Performed By: #### 5 0103 #### [facility] [address] [place] [address], [facility] RBC (Bld) [#/Vol] 4.92 10*6/uL Normal 3.80-5.00 The [facility] Comment on above: Performed By: #### 5 0103 #### [facility] [address] [place] [address], [facility] WBC (Bld) [#/Vol] 9.29 10*3/uL Normal 4.00-10.60 The [facility] Comment on above: Performed By: #### 5 0103 #### [facility] [address] [place] [address], [facility] PROTHROMBIN TIMEon 11-28-202 0 INR Coag (PPP) [Relative time] 0.82 {INR} Low 0.91-1.16 [facility] Comment on above: Result Comment: ACCC P [...] CHEST 1995;108:231S-246S. Performed By: #### 5 6101, [address] #### [address] PT Coag (PPP) [Time] 11.3 s Low 12.3-14.8 [facility] Comment on above: Result Comment: ALL RESULTS MUST BE INTERPRETED WITH RESPECT TO BLOOD DRAWING ARTIFACT OR DILUTION ERROR OF ANTICOAGULANT AT THE TIME OF SAMPLING. Performed By: #### 5 6101, [address]207 #### [address] EYE FOR FOREIGN BODY04-12 EYE FOR FOREIGN BODY [facility] Department of Radiology [address] [place] [id number] Patient Name: ABBEY SWARTZ : 1970 Sex: F Age: Race: White Pt. 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 COMPARISON: None IMPRESSION: Unremarkable orbits. No radiopaque foreign body identified. Clear paranasal sinuses. Electronically signed: Sanjuana Keith. Transcribed by: [email or web address], User Resident: Electronically Signed by: SANJUANA KEITH @ 04/12/2020 08:45 AM Normal [facility] MRI ANKLE WO CONTRAST RIGHTo n 04-12-2020 MRI ANKLE WO CONTRAST RIGHT [facility] Department of Radiology [address] [place] [id number] Patient Name: ABBEY SWARTZ : 1970 Sex: F Age: Race: White Pt. 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 [facility] approved for CPT 09138 Approval Scanned into [employer] Claim# [id number] Valid 04/07/20-04/21/20 *SLA Comments: Please Evaluate Exam: [...] joint. Electronically signed: Sanjuana Keith. Transcribed by: [email or web address], User Resident: Electronically Signed by: SANJUANA KEITH @ 04/12/2020 12:00 PM Normal [facility] Comment on above: Order Comment: Niecy gleason Evaluate MRI FOOT WO CONTRAST RIGHTon 04-12-2020 MRI FOOT WO CONTRAST RIGHT [facility] Department of Radiology [address] [place] [address] Patient Name: ABBEY SWARTZ R : 1970 Sex: F Age: Race: White Pt. 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 Electronically signed: Sanjuana Keith. Transcribed by: [email or web address], User Resident: Electronically Signed by: SANJUANA KEITH @ 04/12/2020 12:15 PM Normal [facility] Comment on above: Order Comment: Niecy gleason Evaluate Basic Metabolic Panelon 07-21 Calcium mass conc 8.8 mg/dL Normal 8.2-10.2 [facility] Comment on above: Performed By: #### C BC, BMP #### [facility] [address] Chloride molar conc 103 mmol/L Normal 95-114 [facility] Comment on above: Performed By: #### C BC, BMP #### [facility] [address] CO2 molar conc 26.6 mmol/L Normal 22.0-30.0 [facility] Comment on above: Performed By: #### C BC, BMP #### [facility] [address] [place] [address] Creatinine mass conc 0.71 mg/dL Normal 0.44-1.03 [facility] Comment on above: Performed By: #### C BC, BMP #### [place] [address] [place] Creatinine mass conc 101.0673692310 mg/dL Normal [facility] Comment on above: Result Comment: PERF ORMED BY: [place] [address] PATHOLOGIST CLIENT RELATIONS ASSOCIATE BIANCA GARG M.D. Performed By: #### C BC, BMP #### [place] [address] [place] Estimated GFR ( Bhavna > 60 Normal [facility] Comment on above: Result Comment: GFR estimated reference range: According to KDOQI guidelines, <60 ml/min/1.73m2 is sufficient to diagnose a patient with chronic kidney disease. Performed By: #### C BC, BMP #### [address] Estimated GFR (Non- Am > 60 Normal [facility] Comment on above: Performed By: #### C BC, BMP #### [address] Glucose mass conc 103 mg/dL High 70-100 [facility] Comment on above: Result Comment: [facility] Glucose Reference Range is dependent on time and content of last meal. Glucose of more than 200 mg/dL in a nonstressed, ambulatory subject supports the diagnosis of Diabetes Mellitus. ADA recommended reference range Performed By: #### C BC, BMP #### [address] Potassium molar conc 4.0 mmol/L Normal 3.5-5.1 [facility] Comment on above: Performed By: #### C BC, BMP #### [address] Sodium molar conc 138 mmol/L Normal 136-146 [facility] Comment on above: Performed By: #### C BC, BMP #### [address] Urea nitrogen mass conc 9 mg/dL Normal 9-23 [facility] Comment on above: Performed By: #### C BC, BMP #### [address] Complete Blood Count Auto Di ffon 08-14-2018 Basophils #/vol (Bld) 0.0 10*3/uL Normal 0.0-0.2 [facility] Comment on above: Result Comment: PERF ORMED BY: [place] [address] PATHOLOGIST CLIENT RELATIONS ASSOCIATE BIANCA GARG M.D. Performed By: #### C BC, BMP #### [address] Basophils/100 WBC (Bld) 0.3 % Normal . [facility] Comment on above: Performed By: #### C BC, BMP #### [address] Eosinophils #/vol (Bld) 0.1 10*3/uL Normal 0.0-0.45 [facility] Comment on above: Performed By: #### C BC, BMP #### [address] Eosinophils/100 WBC (Bld) 1.9 % Normal . [facility] Comment on above: Performed By: #### C BC, BMP #### [address] Erythrocyte distribution width Ratio (RBC) 14.3 % Normal 11.9-15.3 [facility] Comment on above: Performed By: #### C BC, BMP #### [address] Hematocrit Volume Fraction (Bld) 30.5 % Low 34.0-46.4 [facility] Comment on above: Performed By: #### C BC, BMP #### [address] Hemoglobin mass conc (Bld) 10.0 g/dL Low 11.8-15.4 [facility] Comment on above: Performed By: #### C BC, BMP #### [address] Lymphocytes #/vol (Bld) 1.8 10*3/uL Normal 1.00-4.8 [facility] Comment on above: Performed By: #### C BC, BMP #### [address] Lymphocytes/100 WBC (Bld) 25.6 % Normal . [facility] Comment on above: Performed By: #### C BC, BMP #### [address] MCH Entitic mass (RBC) 32.9 g/dL Normal 32.0-35.0 [facility] Comment on above: Performed By: #### C BC, BMP #### [address] MCH Entitic mass (RBC) 30.0 pg Normal 24.7-34.3 [facility] Comment on above: Performed By: #### C BC, BMP #### [address] MCV Entitic volume (RBC) 91.3 fL Normal 80-100 [facility] Comment on above: Performed By: #### C BC, BMP #### [address] Monocytes #/vol (Bld) 0.6 10*3/uL Normal 0.0-0.8 [facility] Comment on above: Performed By: #### C BC, BMP #### [address] Monocytes/100 WBC (Bld) 8.1 % Normal . [facility] Comment on above: Performed By: #### C BC, BMP #### [address] Neutrophils #/vol (Bld) 4.4 10*3/uL Normal 1.8-7.7 [facility] Comment on above: Performed By: #### C BC, BMP #### [address] Neutrophils/100 WBC (Bld) 64.1 % Normal . [facility] Comment on above: Performed By: #### C BC, BMP #### [address] Nucleated RBC/100 WBC Ratio (Bld) 0.1 % Normal 0-0.5 [facility] Comment on above: Performed By: #### C BC, BMP #### [address] Platelet mean volume Entitic volume (Bld) 8.6 fL Normal 6.3-10.7 [facility] Comment on above: Performed By: #### C BC, BMP #### [address] Platelets #/vol (Bld) 254 10*3/uL Normal 150-450 [facility] Comment on above: Performed By: #### C BC, BMP #### [address] RBC #/vol (Bld) 3.35 10*6/uL Low 3.60-5.00 [facility] Comment on above: Performed By: #### C BC, BMP #### [address] WBC #/vol (Bld) 6.9 10*3/uL Normal 4.5-11.0 [facility] Comment on above: Performed By: #### C BC, BMP #### [address] Complete Blood Count Auto Di ffon 08-11-2018 Basophils #/vol (Bld) 0.0 10*3/uL Normal 0.0-0.2 [facility] Comment on above: Result Comment: PERF ORMED BY: [place] [address] PATHOLOGIST CLIENT RELATIONS ASSOCIATE BIANCA GARG M.D. Performed By: #### C BC, CMP, PAB, B12, FOL #### [address] Basophils/100 WBC (Bld) 0.6 % Normal . [facility] Comment on above: Performed By: #### C BC, CMP, PAB, B12, FOL #### [address] Eosinophils #/vol (Bld) 0.1 10*3/uL Normal 0.0-0.45 [facility] Comment on above: Performed By: #### C BC, CMP, PAB, B12, FOL #### [address] Eosinophils/100 WBC (Bld) 1.2 % Normal . [facility] Comment on above: Performed By: #### C BC, CMP, PAB, B12, FOL #### [address] Erythrocyte distribution width Ratio (RBC) 14.1 % Normal 11.9-15.3 [facility] Comment on above: Performed By: #### C BC, CMP, PAB, B12, FOL #### [address] Hematocrit Volume Fraction (Bld) 30.4 % Low 34.0-46.4 [facility] Comment on above: Performed By: #### C BC, CMP, PAB, B12, FOL #### [address] Hemoglobin mass conc (Bld) 10.3 g/dL Low 11.8-15.4 [facility] Comment on above: Performed By: #### C BC, CMP, PAB, B12, FOL #### [address] Lymphocytes #/vol (Bld) 1.9 10*3/uL Normal 1.00-4.8 [facility] Comment on above: Performed By: #### C BC, CMP, PAB, B12, FOL #### [address] Lymphocytes/100 WBC (Bld) 23.9 % Normal . [facility] Comment on above: Performed By: #### C BC, CMP, PAB, B12, FOL #### [address] MCH Entitic mass (RBC) 30.9 pg Normal 24.7-34.3 [facility] Comment on above: Performed By: #### C BC, CMP, PAB, B12, FOL #### [address] MCH Entitic mass (RBC) 33.8 g/dL Normal 32.0-35.0 [facility] Comment on above: Performed By: #### C BC, CMP, PAB, B12, FOL #### [address] MCV Entitic volume (RBC) 91.5 fL Normal 80-100 [facility] Comment on above: Performed By: #### C BC, CMP, PAB, B12, FOL #### [facility] [address] [place] [address] Monocytes #/vol (Bld) 0.8 10*3/uL Normal 0.0-0.8 [facility] Comment on above: Performed By: #### C BC, CMP, PAB, B12, FOL #### [address] Monocytes/100 WBC (Bld) 9.7 % Normal . [facility] Comment on above: Performed By: #### C BC, CMP, PAB, B12, FOL #### [address] Neutrophils #/vol (Bld) 5.2 10*3/uL Normal 1.8-7.7 [facility] Comment on above: Performed By: #### C BC, CMP, PAB, B12, FOL #### [address] Neutrophils/100 WBC (Bld) 64.6 % Normal . [facility] Comment on above: Performed By: #### C BC, CMP, PAB, B12, FOL #### [address] Nucleated RBC/100 WBC Ratio (Bld) 0.2 % Normal 0-0.5 [facility] Comment on above: Performed By: #### C BC, CMP, PAB, B12, FOL #### [address] Platelet mean volume Entitic volume (Bld) 8.9 fL Normal 6.3-10.7 [facility] Comment on above: Performed By: #### C BC, CMP, PAB, B12, FOL #### [facility] [address] [place] [address] [place] Platelets #/vol (Bld) 234 10*3/uL Normal 150-450 [facility] Comment on above: Performed By: #### C BC, CMP, PAB, B12, FOL #### [facility] [address] [place] [address] RBC #/vol (Bld) 3.32 10*6/uL Low 3.60-5.00 [facility] Comment on above: Performed By: #### C BC, CMP, PAB, B12, FOL #### [facility] [address] [place] [address] WBC #/vol (Bld) 8.1 10*3/uL Normal 4.5-11.0 [facility] Comment on above: Performed By: #### C BC, CMP, PAB, B12, FOL #### [address] Comprehensive Metabolic Pane robbie 08-11-2018 Albumin mass conc 2.9 g/dL Low 3.2-5.5 [facility] Comment on above: Performed By: #### C BC, CMP, PAB, B12, FOL #### [address] Albumin/Globulin mass ratio 0.9 {ratio} Normal [facility] Comment on above: Performed By: #### C BC, CMP, PAB, B12, FOL #### [facility] [address] [place] [address] ALP enzyme act/vol 98 U/L High 32-[address] [facility] Comment on above: Performed By: #### C BC, CMP, PAB, B12, FOL #### [address] ALT enzyme act/vol 34 U/L Normal 10-[address] [facility] Comment on above: Performed By: #### C BC, CMP, PAB, B12, FOL #### [address] AST enzyme act/vol 19 U/L Normal 10-[address] [facility] Comment on above: Performed By: #### C BC, CMP, PAB, B12, FOL #### [address] Bilirubin mass conc 0.5 mg/dL Normal 0.3-1.2 [facility] Comment on above: Performed By: #### C BC, CMP, PAB, B12, FOL #### [facility] [address] [place] [address] [place] Calcium mass conc 8.7 mg/dL Normal 8.2-10.2 [facility] Comment on above: Performed By: #### C BC, CMP, PAB, B12, FOL #### [facility] [address] Chloride molar conc 101 mmol/L Normal 95-114 [facility] Comment on above: Performed By: #### C BC, CMP, PAB, B12, FOL #### [facility] [address] CO2 molar conc 24.8 mmol/L Normal 22.0-30.0 [facility] Comment on above: Performed By: #### C BC, CMP, PAB, B12, FOL #### [facility] [address] Creatinine mass conc 111.0304052262 mg/dL [facility] Comment on above: Performed By: #### C BC, CMP, PAB, B12, FOL #### [facility] [address] Creatinine mass conc 0.63 mg/dL Normal 0.44-1.03 [facility] Comment on above: Performed By: #### C BC, CMP, PAB, B12, FOL #### [facility] [address] [place] [address] Estimated GFR ( Bhavna > 60 [facility] Comment on above: Result Comment: GFR estimated reference range: According to KDOQI guidelines, <60 ml/min/1.73m2 is sufficient to diagnose a patient with chronic kidney disease. Performed By: #### C BC, CMP, PAB, B12, FOL #### [facility] [address] [place] [address] [place] Estimated GFR (Non- Am > 60 [facility] Comment on above: Performed By: #### C BC, CMP, PAB, B12, FOL #### [facility] [address] [place] [address] [place] Globulin mass conc (S) 3.1 g/dL Normal [facility] Comment on above: Performed By: #### C BC, CMP, PAB, B12, FOL #### [facility] [address] Glucose mass conc 138 mg/dL High 70-100 [facility] Comment on above: Result Comment: [place] Glucose Reference Range is dependent on time and content of last meal. Glucose of more than 200 mg/dL in a nonstressed, ambulatory subject supports the diagnosis of Diabetes Mellitus. ADA recommended reference range Performed By: #### C BC, CMP, PAB, B12, FOL #### [facility] [address] Potassium molar conc 3.8 mmol/L Normal 3.5-5.1 [facility] Comment on above: Performed By: #### C BC, CMP, PAB, B12, FOL #### [facility] [address] Protein mass conc 6.0 g/dL Low 6.1-7.9 [facility] Comment on above: Performed By: #### C BC, CMP, PAB, B12, FOL #### [facility] [address] Sodium molar conc 136 mmol/L Normal 136-146 [facility] Comment on above: Performed By: #### C BC, CMP, PAB, B12, FOL #### [facility] [address] Urea nitrogen mass conc 11 mg/dL Normal 9-23 [facility] Comment on above: Performed By: #### C BC, CMP, PAB, B12, FOL #### [facility] [address] Folateon 08-11-2018 Folate 17.5 ng/mL Normal [facility] Comment on above: Result Comment: Yelena te reference range: >5.9 ng/ml The WHO technical consultation on folate and vitamin b12 deficiencies has determined that folate concentrations less than 4 ng/ml are considered deficient. PERFORMED BY: [place] [address] PATHOLOGIST CLIENT RELATIONS ASSOCIATE BIANCA GARG M.D. Performed By: #### C BC, CMP, PAB, B12, FOL #### [facility] [address] Prealbuminon 08-11-2018 Prealbumin mass conc 16.5 mg/dL Low 18.0-38.0 [facility] Comment on above: Performed By: #### C BC, CMP, PAB, B12, FOL #### [facility] [address] Vitamin B12on 08-11-2018 Cobalamin (Vitamin B12) mass conc 146 pg/mL Low 180-914 [facility] Comment on above: Performed By: #### C BC, CMP, PAB, B12, FOL #### [address] Urinalysison 08-10-2018 Appearance Nom (U) Clear Normal Clear [facility] Comment on above: Order Comment: Name Collection Type: Clean-Voided Midstream Performed By: #### U A #### [address] Bilirubin,Urine Negative Normal Negative [facility] Comment on above: Order Comment: Name Collection Type: Clean-Voided Midstream Performed By: #### U A #### [address] Color Nom (U) Yellow Normal Yellow [facility] Comment on above: Order Comment: Name Collection Type: Clean-Voided Midstream Performed By: #### U A #### [address] Glucose Ql (U) Normal Normal Normal [facility] Comment on above: Order Comment: Name Collection Type: Clean-Voided Midstream Performed By: #### U A #### [address] Ketones Ql (U) Negative Normal Negative [facility] Comment on above: Order Comment: Name Collection Type: Clean-Voided Midstream Performed By: #### U A #### [address] Leukocyte esterase Test strip Ql (U) Negative Normal Negative [facility] Comment on above: Order Comment: Name Collection Type: Clean-Voided Midstream Performed By: #### U A #### [address] Nitrite,Urine Negative Normal Negative [facility] Comment on above: Order Comment: Name Collection Type: Clean-Voided Midstream Performed By: #### U A #### [address] Occult Blood,Urine Negative Normal Negative [facility] Comment on above: Order Comment: Name Collection Type: Clean-Voided Midstream Result Comment: PERF ORMED BY: [place] [address] PATHOLOGIST CLIENT RELATIONS ASSOCIATE BIANCA GARG M.D. Performed By: #### U A #### [address] pH (U) 6.5 [pH] Normal 5.0-9.0 [facility] Comment on above: Order Comment: Name Collection Type: Clean-Voided Midstream Performed By: #### U A #### [facility] [address] [place] [address] Protein mass conc (U) Negative Normal Negative [facility] Comment on above: Order Comment: Name Collection Type: Clean-Voided Midstream Performed By: #### U A #### [address] Specificy [place],Urine 1.025 Normal 1.001-1.030 [facility] Comment on above: Order Comment: Name Collection Type: Clean-Voided Midstream Performed By: #### U A #### [facility] [address] [place] [address] Urobilinogen,Urine Normal Normal Normal [facility] Comment on above: Order Comment: Name Collection Type: Clean-Voided Midstream Performed By: #### U A #### [address] Encounters Encounter Date Encounter Type Care Provider Facility Start: 12-19-2022 ambulatory [facility] Start: 11-28-2022 End: 11-29-2022 ambulatory [facility] Start: 07-13-2022 Encounter for genera l adult medical examination without abnormal findings YING NAVARRO [facility] Start: 07-11-2022 End: 07-11-2022 ambulatory YING NAVARRO Facility:[facility] Start: 07-09-2022 End: 07-10-2022 ambulatory YING NAVARRO Facility:[facility] Start: 07-09-2022 End: 07-10-2022 Encounter for general adult medical examination without abnormal findings YING NAVARRO Facility:[facility] Start: 11-10-2021 ambulatory YING NAVARRO Facility: Start: 05-18-2020 End: 05-19-2020 ambulatory YARIEL ELISE Facility:[facility] Start: 08-10-2018 End: 08-17-2018 Evaluation and management of inpatient NON STAFF Facility:[facility] Procedures Date Procedure Procedure Detail Performing Clinician Start: 05-18-2020 ANESTH LOWER LEG SURGERY FÁTIMA SALAZAR Start: 05-18-2020 DRAIN/INJ JOINT/BURSA W/O US YARIEL EBRAHEIM Start: 05-18-2020 NEEDLE LOCALIZATION BY XRAY YARIEL EBHEIM Start: 05-18-2020 REVISION OF LOWER LEG TENDON YARIEL EBRAHEIM Payers Date Payer Category Payer Self-pay 2018 Unknown [id number] 1971 Unknown [id number] [id number] 1971 Unknown [id number] 2.16.84 [id number] 1971 Unknown [id number] 2.16.84 [id number] 1971 Unknown [id number] 2.16.84 [id number] 1959 Private Health Insurance [id number] 1959 Unknown [id number] 1959 Unknown [id number] Unknown [id number] Progress note 12-19-2022 Note Date & Type [...] to verify the correct patient, procedure, equipment, systems support officer and site/side marked as required. Patient was prepped and draped in the usual sterile fashion. [facility] Progress note 11-28-2022 Note Date & Type [...] 3 Plan: C9 for CSI Right knee [facility] Summary Purpose Family History No Family History Records FoundNo Family History Records FoundNo Family History Records FoundNo Family History Records Found Advance Directives No Advanced Directives Records FoundNo Advanced Directives Records FoundNo Advanced Directives Records FoundNo Advanced Directives Records Found Additional Source Comments INFORMATION SOURCE (unrecogn ized section and content) DATE CREATED AUTHOR 08/22/2018 [facility] DATE CREATED AUTHOR AUTHOR'S ORGANIZ ATION 03/15/2021 [facility] DATE CREATED AUTHOR AUTHOR'S ORGANIZ ATION 07/22/2022 [facility] DATE CREATED AUTHOR AUTHOR'S ORGANIZ ATION 08/21/2023 [facility] FOR RECORDS PERTAINING TO PATIENTS WHO ARE [...] BE BASED ON THE PRIMARY CLINICAL RECORDS. [facility] [employer] provides no warranty or guarantee of the accuracy or completeness of information in this document.
[2023-09-12 16:36] LABS: Thyroid Stimulating Hormone 8.433 uIU/mL (0.358-3.740)
[2023-09-12 16:57] LABS: Free T4 0.98 ng/dL (0.76-1.46)
== END 2023-09-12 15:08 | disposition home or self-care (01) ==
LOC: LAB 15:11
PROVIDERS: PCP Nurse Practitioner Family; Visit Provider Nurse Practitioner Family
DX: E66.01 Morbid (severe) obesity due to excess calories (principal)
CPT/HCPCS: 36415; 84439; 84443

== ENCOUNTER 2023-10-30 10:10 | Outpatient (OUT) | payer OTHER, SELFPAY ==
[2023-10-30 12:37] LABS: Free T4 0.82 ng/dL (0.76-1.46)
[2023-10-30 14:30] LABS: Free T3 1.93 pg/mL (2.18-3.98); Thyroid Stimulating Hormone 10.523 uIU/mL (0.358-3.740)
== END 2023-10-30 10:11 | disposition home or self-care (01) ==
LOC: LAB 10:10
PROVIDERS: PCP Nurse Practitioner Family; Visit Provider Nurse Practitioner Family
DX: E03.9 Hypothyroidism, unspecified (principal)
CPT/HCPCS: 36415; 84439; 84443; 84481

== ENCOUNTER 2023-11-14 12:13 | Outpatient (OUT) | payer OTHER, SELFPAY ==
--- OUTSIDE RECORDS SUMMARY | 2023-11-14 12:18 | XMS_ITS | CCD ---
Author Organization [facility] Care Team Providers Care Medical Billing And Coding Instructor Name Role Phone NON STAFF Primary Care Unavailable Erica Preston Consulting Unavailable Rizkalisandroa, Sameh Admitting Unavailable Rizkalla, Sameh Attending Unavailable EBRAHEIM, YARIEL Admitting Unavailable EBHEIM, YARIEL Attending Unavailable UNKNOWN, PHYSICIAN Referring Unavailable UNKNOWN, PHYSICIAN Primary Care Unavailable FÁTIMA SALAZAR Surgeon Unavailable [place] Procedure Practitioner Unavailab le GA Procedure Practitioner Unavailab le EBYARIEL THOMPSON Surgeon Unavailable YING NAVARRO Primary Care Unavailable RAMON, YING Admitting Unavailable YING NAVARRO Attending Unavailable RAMON, YING Attending Unavailable RAMON, [...] Facility (1 source) Naproxen Drug Allergy 08-10-2018 [facility] Repository (3 sources) Naproxen Drug Allergy 03-27-2015 [facility] Repository (1 source) Naproxen Drug Allergy 05-18-2020 [facility] Repository (1 source) Naproxen; Translations: [NAPROXEN SODIUM] Drug Allergy 05-27-2022 [facility] Repository Problems Active Problems Problem Classification [...] Approving, but needs appt for additional refills. [facility] 36on 07-19-2023 36 Approving, but needs appt for additional refills. [facility] 36on 06-09-2023 36 Approving, but needs appt for additional refills. [facility] 36on 05-09-2023 36 Approving, but needs appt for additional refills. [facility] Office Visiton 12-19-2022 Follow-up visit [id number] Jovita Swartzvirgie Hull 1970 F Date Provider Department Center 12/19/2022 DIXIE WINSTON MP Family History Family history unknown: Yes Family Status - Relation Status Age at Mother Father Level of Service:41512 [place] OFFICE/OUTPT VISIT,PROCEDURE ONLY Reason for Visit and Comments: Follow-up [033479] Pain [136] [facility] Follow-Upon 11-28-2022 Follow-Up [id number] Abbey Swartz R 1970 F Date Provider Department Center 11/28/2022 DIXIE WINSTON MP Family History Family history unknown: Yes Level of Service:62747 [place] OFFICE/OUTPATIENT ESTABLISHED LOW MDM 20-29 MIN Reason for Visit and Comments: Follow-up [353127] Pain [136] [facility] 36on 11-09-2022 36 User notified dequan t that refill was approved and in order for future refills she would need to keep further appointment. Patient verbalized understanding. Patient appointment is scheduled for 11/21/2022 @1:15 with Dixie Ramos. No further action is needed. [facility] 36on 11-08-2022 36 Approving, but needs appt for additional refills. [facility] 36on 10-06-2022 36 Approving, but needs appt for additional refills. [facility] INSULINon 07-11-2022 Insulin 27.8 uIU/mL Critically high 2.6-24.9 [facility] Comment on above: Performed By: #### I NSULIN #### [facility] [address] [address] [address] Heather CALL BLD IMMUNO SCREENon 06-20 OCCULT BLOOD Negative Normal NEGATIVE [facility] Comment on above: Performed By: #### O BSCRN #### [facility] [address] [address] [address] Heather Del Toro CBC AUTO DIFFon 07-09-2022 BASO # 0.0 103/ul Normal 0.0-0.1 [facility] Comment on above: Performed By: #### C BC #### [facility] [address] [address] [address] Heather Del Toro Basophils/100 WBC (Bld) 0.2 % Normal 0.2-2.0 [facility] Comment on above: Performed By: #### C BC #### [facility] [address] [address] [address] Heather Del Toro EO # 0.1 103/ul Normal 0.0-0.7 [facility] Comment on above: Performed By: #### C BC #### [facility] [address] [place] [address] Dr. Heather Del Toro Eosinophils/100 WBC (Bld) 1.0 % Normal 0.9-7.0 [facility] Comment on above: Performed By: #### C BC #### [facility] [address] [address] [address] Heather Del Toro Erythrocyte distribution width (RBC) [Ratio] 14.9 % Normal 11.0-15.0 [facility] Comment on above: Performed By: #### C BC #### [facility] [address] [place] [address] Dr. Heather Del Toro Hematocrit (Bld) [Volume fraction] 36.6 % Normal 36.0-48.0 [facility] Comment on above: Performed By: #### C BC #### [facility] [address] [address] [address] Heather Del Toro Hemoglobin (Bld) [Mass/Vol] 12.5 g/dL Normal 12.0-16.0 [facility] Comment on above: Performed By: #### C BC #### [facility] [address] [address] [address] Heather Del Toro IG # 0.01 10e3/ul Normal 0.00-0.03 [facility] Comment on above: Performed By: #### C BC #### [facility] [address] [place] [address] Dr. Heather Del Toro IG % 0.1 % Normal 0.0-0.5 [facility] Comment on above: Performed By: #### C BC #### [facility] [address] [place] [address] Dr. Heather Del Toro LYMPH # 3.2 103/ul Normal 1.2-3.8 [facility] Comment on above: Performed By: #### C BC #### [facility] [address] [place] [address] Dr. Heather Del Toro Lymphocytes/100 WBC (Bld) 39.0 % Normal 20.5-60.0 [facility] Comment on above: Performed By: #### C BC #### [facility] [address] [place] [address] Dr. Heather Del Toro MANUAL DIFF REQ NO Normal [facility] Comment on above: Performed By: #### C BC #### [facility] [address] [place] [address] Dr. Heather Del Toro MCH (RBC) [Entitic mass] 27.2 pg Normal 26.7-34.0 [facility] Comment on above: Performed By: #### C BC #### [facility] [address] [place] [address] Dr. Heather Del Toro MCHC (RBC) [Mass/Vol] 34.2 g/dL Normal 29.9-35.2 [facility] Comment on above: Performed By: #### C BC #### [facility] [address] [place] [address] Dr. Heather Del Toro MCV (RBC) [Entitic vol] 79.7 fL Critically low 81.0-99.0 [facility] Comment on above: Performed By: #### C BC #### [facility] [address] [place] [address] Dr. Heather Del Toro MONO # 0.6 103/ul Normal 0.3-0.8 [facility] Comment on above: Performed By: #### C BC #### [facility] [address] [place] [address] Dr. Heather Del Toro Monocytes/100 WBC (Bld) 6.7 % Normal 1.7-12.0 [facility] Comment on above: Performed By: #### C BC #### [facility] [address] [place] [address] Dr. Heather Del Toro NEUT # 4.4 103/ul Normal 1.4-6.5 [facility] Comment on above: Performed By: #### C BC #### [facility] [address] [place] [address] Dr. Heather Del Toro Neutrophils/100 WBC (Bld) 53.0 % Normal 43.0-75.0 [facility] Comment on above: Performed By: #### C BC #### [facility] [address] [place] [address] Dr. Heather Del Toro Platelet mean volume (Bld) [Entitic vol] 11.2 fL Normal 9.5-13.5 [facility] Comment on above: Performed By: #### C BC #### [facility] [address] [place] [address] Dr. Heather Del Toro PLT 168 103/ul Normal 150-450 [facility] Comment on above: Performed By: #### C BC #### [facility] [address] [place] [address] Dr. Heather Del Toro RBC 4.59 106/ul Normal 4.20-5.40 [facility] Comment on above: Performed By: #### C BC #### [facility] [address] [place] [address] Dr. Heather Del Toro WBC 8.3 103/ul Normal 4.0-11.0 [facility] Comment on above: Performed By: #### C BC #### [facility] [address] [place] [address] Dr. Heather Del Toro FREE THYROXINE INDEX T7on FTI 3.30 Normal 1.30-4.50 [facility] Comment on above: Performed By: #### L IPID, CMP, T7, TSH #### [facility] [address] [address] [address] Heather Del Toro T3U 32.0 % Normal 30.0-39.0 [facility] Comment on above: Performed By: #### L IPID, CMP, T7, TSH #### [facility] [address] [address] [address] Heather Del Toro T4 [Mass/Vol] 10.30 ug/dL Normal 4.80-13.90 [facility] Comment on above: Performed By: #### L IPID, CMP, T7, TSH #### [facility] [address] [address] [address] Heather Del Toro GLYCOHEMOGLOBIN A1Con 2022 ADA RECOMMENDATION SEE BELOW Normal [facility] Comment on above: Result Comment: ADA RECOMMENDED LIMIT 4.0 - 6.0 ADA THERAPEUTIC TARGET < 7.0 ACTION SUGGESTED > 7.0 Performed By: #### A 1C #### [facility] [address] [place] [address] Dr. Heather Del Toro Glucose [Mass/Vol] 146 mg/dL Normal [facility] Comment on above: Performed By: #### A 1C #### [facility] [address] [place] [address] Dr. Heather Del Toro HbA1c (Bld) [Mass fraction] 6.7 % Critically high 4.5-6.2 [facility] Comment on above: Performed By: #### A 1C #### [facility] [address] [place] [address] Dr. Heather Del Toro IRONon 07-09-2022 Iron [Mass/Vol] 26.0 ug/dL Critically low 50.0-170.0 [facility] Comment on above: Performed By: #### I YAKOV #### [facility] [address] [place] [address] Dr. Heather Del Toro LIPID PROFILEon 07-09-2022 CHOL-HDL RATIO NORM SEE BELOW Normal [facility] Comment on above: Result Comment: 3.3 - 4.4 LOW RISK 4.4 - 7.1 AVERAGE RISK 7.1 - 11.0 MODERATE RISK >11.0 HIGH RISK Performed By: #### L IPID, CMP, T7, TSH #### [facility] [address] [address] [address] Heather Del Toro Cholesterol [Mass/Vol] 212 mg/dL Critically high <=200 [facility] Comment on above: Performed By: #### L IPID, CMP, T7, TSH #### [facility] [address] [address] [address] Heather Del Toro Cholesterol in HDL [Mass/Vol] 39 mg/dL Critically low 40-60 [facility] Comment on above: Performed By: #### L IPID, CMP, T7, TSH #### [facility] [address] [address] [address] Heather Del Toro Cholesterol in LDL [Mass/Vol] 150.6 mg/dL Normal [facility] Comment on above: Performed By: #### L IPID, CMP, T7, TSH #### [facility] [address] [address] [address] Heather Del Toro Cholesterol.total/Ch olesterol in HDL [Mass ratio] 5.4 {ratio} Normal [facility] Comment on above: Performed By: #### L IPID, CMP, T7, TSH #### [facility] [address] [address] [address] Heather Del Toro HDL NORMAL > or = 60 mg/dl - LO W CARDIOVASCULAR RISK <40 mg/dl - HIGH CARDIOVASCULAR RISK Normal [facility] Comment on above: Performed By: #### L IPID, CMP, T7, TSH #### [facility] [address] [address] [address] Heather Del Toro LDL CALC NORMAL SEE BELOW Normal [facility] Comment on above: Result Comment: <100 mg/dl OPTIMAL 100 - 129 mg/dl NEAR OR ABOVE OPTIMAL 130 - 159 mg/dl BORDERLINE HIGH 160 - 189 mg/dl HIGH >190 mg/dl VERY HIGH Performed By: #### L IPID, CMP, T7, TSH #### [facility] [address] [address] [address] Heather Del Toro Triglyceride [Mass/Vol] 112 mg/dL Normal <=150 [facility] Comment on above: Performed By: #### L IPID, CMP, T7, TSH #### [facility] [address] [address] [address] Heather Del Toro VLDL CALC 22.4 mg/dL Normal [facility] Comment on above: Performed By: #### L IPID, CMP, T7, TSH #### [facility] [address] [address] [address] Heather Del Toro PROF 14(COMP METB)on 023 Albumin [Mass/Vol] 3.9 g/dL Normal 3.4-5.0 [facility] Comment on above: Performed By: #### L IPID, CMP, T7, TSH #### [facility] [address] [address] [address] Heather Del Toro Albumin/Globulin [Mass ratio] 1.2 {ratio} Normal [facility] Comment on above: Performed By: #### L IPID, CMP, T7, TSH #### [facility] [address] [address] [address] Heather Del Toro ALP [Catalytic activity/Vol] 132 U/L Critically high 46-116 [facility] Comment on above: Performed By: #### L IPID, CMP, T7, TSH #### [facility] [address] [address] [address] Heather Del Toro ALT [Catalytic activity/Vol] 93 U/L Critically high 14-59 [facility] Comment on above: Performed By: #### L IPID, CMP, T7, TSH #### [facility] [address] [address] [address] Heather Del Toro Anion gap [Moles/Vol] 11.5 mmol/L Normal [facility] Comment on above: Performed By: #### L IPID, CMP, T7, TSH #### [facility] [address] [address] [address] Heather Del Toro AST [Catalytic activity/Vol] 43 U/L Critically high 15-37 [facility] Comment on above: Performed By: #### L IPID, CMP, T7, TSH #### [facility] [address] [address] [address] Heather Del Toro Bilirubin [Mass/Vol] 0.3 mg/dL Normal 0.2-1.0 [facility] Comment on above: Performed By: #### L IPID, CMP, T7, TSH #### [facility] [address] [address] [address] Heather Del Toro Calcium [Mass/Vol] 9.1 mg/dL Normal 8.5-10.1 [facility] Comment on above: Performed By: #### L IPID, CMP, T7, TSH #### [facility] [address] [address] [address] Heather Del Toro Chloride [Moles/Vol] 104 mmol/L Normal 98-107 [facility] Comment on above: Performed By: #### L IPID, CMP, T7, TSH #### [facility] [address] [place] [address] Dr. Heather Del Toro CO2 [Moles/Vol] 28.9 mmol/L Normal 21.0-32.0 [facility] Comment on above: Performed By: #### L IPID, CMP, T7, TSH #### [facility] [address] [address] [address] Heather Del Toro Creatinine [Mass/Vol] 0.73 mg/dL Normal 0.55-1.02 [facility] Comment on above: Performed By: #### L IPID, CMP, T7, TSH #### [facility] [address] [address] [address] Heather Del Toro EGFR-AF SOUTH [place]OREAN >60 Normal >=60 [facility] Comment on above: Performed By: #### L IPID, CMP, T7, TSH #### [facility] [address] [address] [address] Heather Del Toro EGFR-NON AF [place] >60 Normal >=60 [facility] Comment on above: Performed By: #### L IPID, CMP, T7, TSH #### [facility] [address] [address] [address] Heather Del Toro Globulin (S) [Mass/Vol] 3.3 g/dL Normal [facility] Comment on above: Performed By: #### L IPID, CMP, T7, TSH #### [facility] [address] [address] [address] Heather Del Toro Glucose [Mass/Vol] 106 mg/dL Normal 74-106 [facility] Comment on above: Performed By: #### L IPID, CMP, T7, TSH #### [facility] [address] [address] [address] Heather Del Toro Potassium [Moles/Vol] 4.4 mmol/L Normal 3.5-5.1 [facility] Comment on above: Performed By: #### L IPID, CMP, T7, TSH #### [facility] [address] [place] [address] Dr. Heather Del Toro Protein [Mass/Vol] 7.2 g/dL Normal 6.4-8.2 [facility] Comment on above: Performed By: #### L IPID, CMP, T7, TSH #### [facility] [address] [place] [address] Dr. Heather Del Toro Sodium [Moles/Vol] 140 mmol/L Normal 136-145 [facility] Comment on above: Performed By: #### L IPID, CMP, T7, TSH #### [facility] [address] [place] [address] Dr. Heather Del Toro Urea nitrogen [Mass/Vol] 10.0 mg/dL Normal 7.0-18.0 [facility] Comment on above: Performed By: #### L IPID, CMP, T7, TSH #### [facility] [address] [place] [address] Dr. Heather Del Toro Urea nitrogen/Creatinine [Mass ratio] 13.7 mg/mg Normal [facility] Comment on above: Performed By: #### L IPID, CMP, T7, TSH #### [facility] [address] [place] [address] Dr. Heather Del Toro TSHon 07-09-2022 TSH 4.912 uIU/mL Critically high 0.358-3.740 [facility] Comment on above: Performed By: #### L IPID, CMP, T7, TSH #### [facility] [address] [address] [address] Heather Del Toro ANKLE RIGHT 2 [facility] 05-18-20 20 ANKLE RIGHT 2 [facility] Department of Radiology [address] [place] [id number] Patient Name: ABBEY SWARTZ : 1970 [...] JOINT CORTICOSTEROID INJECTION Exam: ANKLE RIGHT 2 [facility] ANKLE RIGHT 2 [facility] 05/18/2020 12:53 PM CLINICAL INDICATIONS: RIGHT PERCUTANEOUS [...] IMPRESSION: Electronically signed: Shivam Church. Transcribed by: [email or web address], User Resident: Electronically Signed by: SHIVAM CHURCH @ 05/18/2020 01:33 PM Normal [facility] Comment on above: Order Comment: RIGHT PERCUTANEOUS ACHILLES TENDON LENGTHENING WITH RIGHT ANKLE JOINT CORTICOSTEROID INJECTION Operative Reporton 0 Operative Report MR#: [id number] [facility] Pt. Name: Abbey Swartz Room #: [...] were confirmed. We began by performing a [place] style Achilles tenotomy. Through 3 percutaneous stab [...] Villarreal MD Date Trans: 05/18/2020 06:45 P/angie [id number] Normal [facility] POC GLUCOSE LABon 05-18-2020 Glucose [Mass/Vol] 101 mg/dL High 70-100 [facility] Comment on above: Performed By: #### 8 [id number] #### [facility] [address] [place] [address], [facility] Glucose [Mass/Vol] 106 mg/dL High 70-100 [facility] Comment on above: Performed By: #### 8 [id number] ####[facility] [address] *MRSA/MSSA DNA NASALon 05-16 *MRSA/MSSA DNA NASAL Clinical Report: (D ) Specimen: NASAL SWAB Collected: 05/16/2020 10:34 Status: Final Last Updated: 05/17/2020 09:45 MSSA DNA (Final) Negative MRSA DNA (Final) Negative Normal [facility] Comment on above: Performed By: #### 3 1595 #### [facility] [address] [facility]. [address] *SARS-CoV-2 COVID-19on 05-16 SARS-CoV-2 (COVID-19) RNA NEVILLE+probe Ql (Unsp spec) Not detected Normal Not Detected [facility] Comment on above: Order Comment: The A ptima SARS-CoV-2 assay is a nucleic acid amplification test intended for the qualitative detection of RNA from SARS-CoV-2 isolated and purified from nasopharyngeal (WIRE TAPER),oropharyngeal (OP), nasal swab, sputum, and bronchoalveolar lavage (BAL) specimens from patients with signs and symptoms of infection who are suspected of COVID-19. Results are for the identification of SARS-CoV-2 RNA. The SARS-CoV-2 RNA is generally detectable during the acute phase of infection. The Aptima SARS-CoV-2 Assay on the [employer] system is intended for use by laboratory personnel specifically instructed and trained in the operation of the [employer] system. The Aptima SARS-CoV-2 assay is [...] information. Performed By: #### 3 1792 #### [facility] [address] [place] [address], [facility] APTTon 05-16-2020 aPTT Coag (Bld) [Time] 32.1 s Normal 25.0-35.0 [facility] Comment on above: Result Comment: [...] THIS PURPOSE. Performed By: #### 5 6101, [address]60[address] #### [facility] [address] [place] [address], [facility] BASIC METABOLIC PANELon 11-2 8-2020 Calcium [Mass/Vol] 9.5 mg/dL Normal 8.6-10.3 [facility] Comment on above: Performed By: #### 0 0071 #### [facility] [address] [place] [address], [facility] Chloride [Moles/Vol] 104 mmol/L Normal 98-107 [facility] Comment on above: Performed By: #### 0 0071 #### [facility] [address] [place] [address], [facility] CO2 [Moles/Vol] 28 mmol/L Normal 21-31 [facility] Comment on above: Performed By: #### 0 0071 #### [facility] [address] [place] [address], [facility] Creatinine [Mass/Vol] 0.79 mg/dL Normal 0.60-1.20 [facility] Comment on above: Performed By: #### 0 0071 #### [facility] [address] [place] [address], [facility] GFR/1.73 sq M.predicted among blacks MDRD (S/P/Bld) [Vol rate/Area] mL/min/{1.73_m2} Normal >60 [facility] Comment on above: Performed By: #### 0 0071 #### [facility] [address] GFR/1.73 sq M.predicted among non-blacks MDRD (S/P/Bld) [Vol rate/Area] mL/min/{1.73_m2} Normal >60 [facility] Comment on above: Performed By: #### 0 0071 #### [facility] [address] Glucose [Mass/Vol] 116 mg/dL High 70-100 [facility] Comment on above: Performed By: #### 0 0071 #### [facility] [address] Potassium [Moles/Vol] 4.2 mmol/L Normal 3.5-5.1 [facility] Comment on above: Performed By: #### 0 0071 #### [facility] [address] Sodium [Moles/Vol] 139 mmol/L Normal 136-145 [facility] Comment on above: Performed By: #### 0 0071 #### [facility] [address] Urea nitrogen [Mass/Vol] 8 mg/dL Normal 7-25 [facility] Comment on above: Performed By: #### 0 0071 #### [facility] [address] CBC W/DIFFon 05-16-2020 ABS IMM GRANS 0.0 10*3/uL Normal 0.0-0.2 [facility] Comment on above: Performed By: #### 5 3 #### [facility] [address] ABS NEUTROPHILS 5.7 10*3/uL Normal 1.6-7.6 [facility] Comment on above: Performed By: #### 5 0103 #### [facility] [address] [place] [address], [facility] Basophils (Bld) [#/Vol] 0.0 10*3/uL Normal 0.0-0.2 [facility] Comment on above: Performed By: #### 5 102 #### [facility] [address] [place] [address], [facility] Basophils/100 WBC (Bld) 0.3 % Normal 0.0-1.0 [facility] Comment on above: Performed By: #### 3 #### [facility] [address] [address], [facility] Eosinophils (Bld) [#/Vol] 0.1 10*3/uL Normal 0.0-0.5 [facility] Comment on above: Performed By: #### 102 #### [facility] [address] [place] [address], [facility] Eosinophils/100 WBC (Bld) 1.4 % Normal 0.0-6.0 [facility] Comment on above: Performed By: #### 5 3 #### [facility] [address] [facility]. [address] Erythrocyte distribution width (RBC) [Ratio] 16.6 % High 11.5-15.0 [facility] Comment on above: Performed By: #### 3 #### [facility] [address] [facility] [address], [facility] Hematocrit (Bld) [Volume fraction] 41.8 % Normal 36.0-45.0 [facility] Comment on above: Performed By: #### 102 #### [facility] [address] [place] [address], [facility] Hemoglobin (Bld) [Mass/Vol] 12.4 g/dL Normal 12.0-15.0 [facility] Comment on above: Performed By: #### 5 0103 #### [facility] [address] [place] [address], [facility] IMMATURE GRANS 0.3 % Normal 0.0-1.0 [facility] Comment on above: Performed By: #### 102 #### [facility] [address] [place] [address], [facility] Lymphocytes (Bld) [#/Vol] 2.8 10*3/uL Normal 1.2-4.0 [facility] Comment on above: Performed By: #### 102 #### [facility] [address] Lymphocytes/100 WBC (Bld) 29.8 % Normal 20.0-45.0 [facility] Comment on above: Performed By: #### 102 #### [facility] [address] MCH (RBC) [Entitic mass] 25.2 pg Low 27.0-33.0 [facility] Comment on above: Performed By: #### 102 #### [facility] [address] MCHC (RBC) [Mass/Vol] 29.7 g/dL Low 32.0-35.0 [facility] Comment on above: Performed By: #### 3 #### [facility] [address] MCV (RBC) [Entitic vol] 85.0 fL Normal 82.0-98.0 [facility] Comment on above: Performed By: #### 102 #### [facility] [address] [place] [address], [facility] Monocytes (Bld) [#/Vol] 0.7 10*3/uL Normal 0.1-1.0 [facility] Comment on above: Performed By: #### 5 0103 #### [facility] [address] [place] [id number], [facility] MONOS 7.2 % Normal 5.0-12.0 [facility] Comment on above: Performed By: #### 5 3 #### [facility] [address] [place] [address], [facility] Neutrophils/100 WBC (Bld) 61.0 % Normal 40.0-72.0 [facility] Comment on above: Performed By: #### 102 #### [facility] [address] [facility] [place] [id number], [facility] Nucleated RBC/100 WBC (Bld) [Ratio] 0 % Normal 0-0 [facility] Comment on above: Performed By: #### 5 102 #### [facility] [address] [facility] [place] [address], [facility] PLAT CNT 210 10*3/uL Normal 150-400 [facility] Comment on above: Performed By: #### 5 102 #### [facility] [address] [facility] [place] [address], [facility] RBC (Bld) [#/Vol] 4.92 10*6/uL Normal 3.80-5.00 [facility] Comment on above: Performed By: #### 102 #### [facility] [address] [facility] [place] [id number], [facility] WBC (Bld) [#/Vol] 9.29 10*3/uL Normal 4.00-10.60 [facility] Comment on above: Performed By: #### 5 102 #### [facility] [address] [place] [address], [facility] PROTHROMBIN TIMEon 202 0 INR Coag (PPP) [Relative time] 0.82 {INR} Low 0.91-1.16 [facility] Comment on above: Result Comment: ACCC [...] CHEST 1995;108:[id number]-246S. Performed By: #### 5 6101, [id number] #### [address] PT Coag (PPP) [Time] 11.3 s Low 12.3-14.8 [facility] Comment on above: Result Comment: ALL RESULTS MUST BE INTERPRETED WITH RESPECT TO BLOOD DRAWING ARTIFACT OR DILUTION ERROR OF ANTICOAGULANT AT THE TIME OF SAMPLING. Performed By: #### 5 6101, [address] #### [address] EYE FOR FOREIGN BODYon 04-12 EYE FOR FOREIGN BODY [facility] Department of Radiology [address] [place] [id number] Patient Name: ABBEY SWARTZ : 1970 Sex: F Age: Race: White Pt. 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 COMPARISON: None IMPRESSION: Unremarkable orbits. No radiopaque foreign body identified. Clear paranasal sinuses. Electronically signed: Sanjuana Keith. Transcribed by: [email or web address], User Resident: Electronically Signed by: SANJUANA KEITH @ 04/12/2020 08:45 AM Normal [facility] MRI ANKLE WO CONTRAST RIGHTo n 04-12-2020 MRI ANKLE WO CONTRAST RIGHT [facility] Department of Radiology [address] [place] [id number] Patient Name: ABBEY SWARTZ : 1970 Sex: F Age: Race: White Pt. 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 [facility] Req. [employer] approved for CPT 76032 Approval Scanned into [place] Claim# [id number] Valid 04/07/20-04/21/20 *SLA Comments: Please Evaluate Exam: [...] joint. Electronically signed: Sanjuana Keith. Transcribed by: [email or web address], User Resident: Electronically Signed by: SANJUANA KEITH @ 04/12/2020 12:00 PM Normal [facility] Comment on above: Order Comment: Pleas e Evaluate MRI FOOT WO CONTRAST RIGHTon 04-12-2020 MRI FOOT WO CONTRAST RIGHT [facility] Department of Radiology [address] [place] [address] Patient Name: ABBEY SWARTZ : [...] metatarsal. Electronically signed: Sanjuana Keith. Transcribed by: [email or web address], User Resident: Electronically Signed by: SANJUANA KEITH @ 04/12/2020 12:15 PM Normal [facility] Comment on above: Order Comment: Niecy gleason Evaluate Basic Metabolic Panelon - Calcium mass conc 8.8 mg/dL Normal 8.2-10.2 [facility] Comment on above: Performed By: #### C BC, BMP #### [address] Chloride molar conc 103 mmol/L Normal 95-114 [facility] Comment on above: Performed By: #### C BC, BMP #### [address] CO2 molar conc 26.6 mmol/L Normal 22.0-30.0 [facility] Comment on above: Performed By: #### C BC, BMP #### [address] Creatinine mass conc 0.71 mg/dL Normal 0.44-1.03 [facility] Comment on above: Performed By: #### C BC, BMP #### [facility] [address] [place] [address] [place] Creatinine mass conc 101.8292192575 mg/dL Normal [facility] Comment on above: Result Comment: PERF ORMED BY: [place] [address] PATHOLOGIST CUSTOMER SERVICE ADVISOR BIANCA GARG M.D. Performed By: #### C BC, BMP #### [address] Estimated GFR ( Bhavna > 60 Normal [facility] Comment on above: Result Comment: GFR estimated reference range: According to KDOQI guidelines, <60 ml/min/1.73m2 is sufficient to diagnose a patient with chronic kidney disease. Performed By: #### C BC, BMP #### [address] Estimated GFR (Non- Am > 60 Normal [facility] Comment on above: Performed By: #### C BC, BMP #### [address] Glucose mass conc 103 mg/dL High 70-100 [facility] Comment on above: Result Comment: Bouse Glucose Reference Range is dependent on time and content of last meal. Glucose of more than 200 mg/dL in a nonstressed, ambulatory subject supports the diagnosis of Diabetes Mellitus. ADA recommended reference range Performed By: #### C BC, BMP #### [address] Potassium molar conc 4.0 mmol/L Normal 3.5-5.1 [facility] Comment on above: Performed By: #### C BC, BMP #### [address] Sodium molar conc 138 mmol/L Normal 136-146 [facility] Comment on above: Performed By: #### C BC, BMP #### [address] Urea nitrogen mass conc 9 mg/dL Normal 9-23 [facility] Comment on above: Performed By: #### C BC, BMP #### [address] Complete Blood Count Auto Di ffon 08-14-2018 Basophils #/vol (Bld) 0.0 10*3/uL Normal 0.0-0.2 [facility] Comment on above: Result Comment: PERF ORMED BY: [place] [address] PATHOLOGIST CUSTOMER SERVICE ADVISOR BIANCA GARG M.D. Performed By: #### C BC, BMP #### [place] [address] [place] Basophils/100 WBC (Bld) 0.3 % Normal . [facility] Comment on above: Performed By: #### C BC, BMP #### [facility] [address] [place] [address] [place] Eosinophils #/vol (Bld) 0.1 10*3/uL Normal 0.0-0.45 [facility] Comment on above: Performed By: #### C BC, BMP #### [facility] [address] [place] [address] [place] Eosinophils/100 WBC (Bld) 1.9 % Normal . [facility] Comment on above: Performed By: #### C BC, BMP #### [address] Erythrocyte distribution width Ratio (RBC) 14.3 % Normal 11.9-15.3 [facility] Comment on above: Performed By: #### C BC, BMP #### [address] Hematocrit Volume Fraction (Bld) 30.5 % Low 34.0-46.4 [facility] Comment on above: Performed By: #### C BC, BMP #### [address] Hemoglobin mass conc (Bld) 10.0 g/dL Low 11.8-15.4 [facility] Comment on above: Performed By: #### C BC, BMP #### [address] Lymphocytes #/vol (Bld) 1.8 10*3/uL Normal 1.00-4.8 [facility] Comment on above: Performed By: #### C BC, BMP #### [place] [address] [place] Lymphocytes/100 WBC (Bld) 25.6 % Normal . [facility] Comment on above: Performed By: #### C BC, BMP #### [address] MCH Entitic mass (RBC) 32.9 g/dL Normal 32.0-35.0 [facility] Comment on above: Performed By: #### C BC, BMP #### [facility] [address] MCH Entitic mass (RBC) 30.0 pg Normal 24.7-34.3 [facility] Comment on above: Performed By: #### C BC, BMP #### [address] MCV Entitic volume (RBC) 91.3 fL Normal 80-100 [facility] Comment on above: Performed By: #### C BC, BMP #### [address] Monocytes #/vol (Bld) 0.6 10*3/uL Normal 0.0-0.8 [facility] Comment on above: Performed By: #### C BC, BMP #### [address] Monocytes/100 WBC (Bld) 8.1 % Normal . [facility] Comment on above: Performed By: #### C BC, BMP #### [address] Neutrophils #/vol (Bld) 4.4 10*3/uL Normal 1.8-7.7 [facility] Comment on above: Performed By: #### C BC, BMP #### [address] Neutrophils/100 WBC (Bld) 64.1 % Normal . [facility] Comment on above: Performed By: #### C BC, BMP #### [address] Nucleated RBC/100 WBC Ratio (Bld) 0.1 % Normal 0-0.5 [facility] Comment on above: Performed By: #### C BC, BMP #### [address] Platelet mean volume Entitic volume (Bld) 8.6 fL Normal 6.3-10.7 [facility] Comment on above: Performed By: #### C BC, BMP #### [address] Platelets #/vol (Bld) 254 10*3/uL Normal 150-450 [facility] Comment on above: Performed By: #### C BC, BMP #### [address] RBC #/vol (Bld) 3.35 10*6/uL Low 3.60-5.00 [facility] Comment on above: Performed By: #### C BC, BMP #### [address] WBC #/vol (Bld) 6.9 10*3/uL Normal 4.5-11.0 [facility] Comment on above: Performed By: #### C BC, BMP #### [address] Complete Blood Count Auto Di ffon 08-11-2018 Basophils #/vol (Bld) 0.0 10*3/uL Normal 0.0-0.2 [facility] Comment on above: Result Comment: PERF ORMED BY: [place] [address] PATHOLOGIST CUSTOMER SERVICE ADVISOR BIANCA GARG M.D. Performed By: #### C BC, CMP, PAB, B12, FOL #### [address] Basophils/100 WBC (Bld) 0.6 % Normal . [facility] Comment on above: Performed By: #### C BC, CMP, PAB, B12, FOL #### [address] Eosinophils #/vol (Bld) 0.1 10*3/uL Normal 0.0-0.45 [facility] Comment on above: Performed By: #### C BC, CMP, PAB, B12, FOL #### [address] Eosinophils/100 WBC (Bld) 1.2 % Normal . [facility] Comment on above: Performed By: #### C BC, CMP, PAB, B12, FOL #### [address] Erythrocyte distribution width Ratio (RBC) 14.1 % Normal 11.9-15.3 [facility] Comment on above: Performed By: #### C BC, CMP, PAB, B12, FOL #### [address] Hematocrit Volume Fraction (Bld) 30.4 % Low 34.0-46.4 [facility] Comment on above: Performed By: #### C BC, CMP, PAB, B12, FOL #### [address] Hemoglobin mass conc (Bld) 10.3 g/dL Low 11.8-15.4 [facility] Comment on above: Performed By: #### C BC, CMP, PAB, B12, FOL #### [address] Lymphocytes #/vol (Bld) 1.9 10*3/uL Normal 1.00-4.8 [facility] Comment on above: Performed By: #### C BC, CMP, PAB, B12, FOL #### [address] Lymphocytes/100 WBC (Bld) 23.9 % Normal . [facility] Comment on above: Performed By: #### C BC, CMP, PAB, B12, FOL #### [address] MCH Entitic mass (RBC) 30.9 pg Normal 24.7-34.3 [facility] Comment on above: Performed By: #### C BC, CMP, PAB, B12, FOL #### [address] MCH Entitic mass (RBC) 33.8 g/dL Normal 32.0-35.0 [facility] Comment on above: Performed By: #### C BC, CMP, PAB, B12, FOL #### [address] MCV Entitic volume (RBC) 91.5 fL Normal 80-100 [facility] Comment on above: Performed By: #### C BC, CMP, PAB, B12, FOL #### [facility] [address] [place] [address] Monocytes #/vol (Bld) 0.8 10*3/uL Normal 0.0-0.8 [facility] Comment on above: Performed By: #### C BC, CMP, PAB, B12, FOL #### [facility] [address] [place] [address] Monocytes/100 WBC (Bld) 9.7 % Normal . [facility] Comment on above: Performed By: #### C BC, CMP, PAB, B12, FOL #### [facility] [address] [place] [address] Neutrophils #/vol (Bld) 5.2 10*3/uL Normal 1.8-7.7 [facility] Comment on above: Performed By: #### C BC, CMP, PAB, B12, FOL #### [facility] [address] [place] [address] Neutrophils/100 WBC (Bld) 64.6 % Normal . [facility] Comment on above: Performed By: #### C BC, CMP, PAB, B12, FOL #### [facility] [address] [place] [address] Nucleated RBC/100 WBC Ratio (Bld) 0.2 % Normal 0-0.5 [facility] Comment on above: Performed By: #### C BC, CMP, PAB, B12, FOL #### [facility] [address] [place] [address] Platelet mean volume Entitic volume (Bld) 8.9 fL Normal 6.3-10.7 [facility] Comment on above: Performed By: #### C BC, CMP, PAB, B12, FOL #### [facility] [address] [place] [address] Platelets #/vol (Bld) 234 10*3/uL Normal 150-450 [facility] Comment on above: Performed By: #### C BC, CMP, PAB, B12, FOL #### [facility] [address] [place] [address] RBC #/vol (Bld) 3.32 10*6/uL Low 3.60-5.00 [facility] Comment on above: Performed By: #### C BC, CMP, PAB, B12, FOL #### [facility] [address] WBC #/vol (Bld) 8.1 10*3/uL Normal 4.5-11.0 [facility] Comment on above: Performed By: #### C BC, CMP, PAB, B12, FOL #### [address] Comprehensive Metabolic Pane robbie 08-11-2018 Albumin mass conc 2.9 g/dL Low 3.2-5.5 [facility] Comment on above: Performed By: #### C BC, CMP, PAB, B12, FOL #### [address] Albumin/Globulin mass ratio 0.9 {ratio} Normal [facility] Comment on above: Performed By: #### C BC, CMP, PAB, B12, FOL #### [facility] [address] [place] [address] ALP enzyme act/vol 98 U/L High 32-92 [facility] Comment on above: Performed By: #### C BC, CMP, PAB, B12, FOL #### [facility] [address] [place] [address] ALT enzyme act/vol 34 U/L Normal 10-60 [facility] Comment on above: Performed By: #### C BC, CMP, PAB, B12, FOL #### [facility] [address] [place] [address] AST enzyme act/vol 19 U/L Normal 10-42 [facility] Comment on above: Performed By: #### C BC, CMP, PAB, B12, FOL #### [address] Bilirubin mass conc 0.5 mg/dL Normal 0.3-1.2 [facility] Comment on above: Performed By: #### C BC, CMP, PAB, B12, FOL #### [facility] [address] [place] [address] [place] Calcium mass conc 8.7 mg/dL Normal 8.2-10.2 [facility] Comment on above: Performed By: #### C BC, CMP, PAB, B12, FOL #### [facility] [address] Chloride molar conc 101 mmol/L Normal 95-114 [facility] Comment on above: Performed By: #### C BC, CMP, PAB, B12, FOL #### [facility] [address] CO2 molar conc 24.8 mmol/L Normal 22.0-30.0 [facility] Comment on above: Performed By: #### C BC, CMP, PAB, B12, FOL #### [facility] [address] [place] [address] Creatinine mass conc 111.1777581399 mg/dL Normal [facility] Comment on above: Performed By: #### C BC, CMP, PAB, B12, FOL #### [facility] [address] Creatinine mass conc 0.63 mg/dL Normal 0.44-1.03 [facility] Comment on above: Performed By: #### C BC, CMP, PAB, B12, FOL #### [facility] [address] [place] [address] Estimated GFR ( Bhavna > 60 [facility] Comment on above: Result Comment: GFR estimated reference range: According to KDOQI guidelines, <60 ml/min/1.73m2 is sufficient to diagnose a patient with chronic kidney disease. Performed By: #### C BC, CMP, PAB, B12, FOL #### [facility] [address] [place] [address] Estimated GFR (Non- Am > 60 [facility] Comment on above: Performed By: #### C BC, CMP, PAB, B12, FOL #### [facility] [address] [place] [address] [place] Globulin mass conc (S) 3.1 g/dL Normal [facility] Comment on above: Performed By: #### C BC, CMP, PAB, B12, FOL #### [facility] [address] Glucose mass conc 138 mg/dL High 70-100 [facility] Comment on above: Result Comment: Bouse Glucose Reference Range is dependent on time and content of last meal. Glucose of more than 200 mg/dL in a nonstressed, ambulatory subject supports the diagnosis of Diabetes Mellitus. ADA recommended reference range Performed By: #### C BC, CMP, PAB, B12, FOL #### [facility] [address] Potassium molar conc 3.8 mmol/L Normal 3.5-5.1 [facility] Comment on above: Performed By: #### C BC, CMP, PAB, B12, FOL #### [facility] [address] Protein mass conc 6.0 g/dL Low 6.1-7.9 [facility] Comment on above: Performed By: #### C BC, CMP, PAB, B12, FOL #### [address] Sodium molar conc 136 mmol/L Normal 136-146 [facility] Comment on above: Performed By: #### C BC, CMP, PAB, B12, FOL #### [facility] [address] [place] [address] [place] Urea nitrogen mass conc 11 mg/dL Normal - [facility] Comment on above: Performed By: #### C BC, CMP, PAB, B12, FOL #### [facility] [address] Folateon 08-11-2018 Folate 17.5 ng/mL Normal [facility] Comment on above: Result Comment: Yelena te reference range: >5.9 ng/ml The WHO technical consultation on folate and vitamin b12 deficiencies has determined that folate concentrations less than 4 ng/ml are considered deficient. PERFORMED BY: [place] [address] PATHOLOGIST CUSTOMER SERVICE ADVISOR BIANCA GARG M.D. Performed By: #### C BC, CMP, PAB, B12, FOL #### [facility] [address] Prealbuminon 08-11-2018 Prealbumin mass conc 16.5 mg/dL Low 18.0-38.0 [facility] Comment on above: Performed By: #### C BC, CMP, PAB, B12, FOL #### [facility] [address] Vitamin B12on 08-11-2018 Cobalamin (Vitamin B12) mass conc 146 pg/mL Low 180-914 [facility] Comment on above: Performed By: #### C BC, CMP, PAB, B12, FOL #### [address] Urinalysison 08-10-2018 Appearance Nom (U) Clear Normal Clear [facility] Comment on above: Order Comment: Name Collection Type: Clean-Voided Midstream Performed By: #### U A #### [address] Bilirubin,Urine Negative Normal Negative [facility] Comment on above: Order Comment: Name Collection Type: Clean-Voided Midstream Performed By: #### U A #### [address] Color Nom (U) Yellow Normal Yellow [facility] Comment on above: Order Comment: Name Collection Type: Clean-Voided Midstream Performed By: #### U A #### [facility] [address] [place] [address] Glucose Ql (U) Normal Normal Normal [facility] Comment on above: Order Comment: Name Collection Type: Clean-Voided Midstream Performed By: #### U A #### [address] Ketones Ql (U) Negative Normal Negative [facility] Comment on above: Order Comment: Name Collection Type: Clean-Voided Midstream Performed By: #### U A #### [facility] [address] [place] [address] Leukocyte esterase Test strip Ql (U) Negative Normal Negative [facility] Comment on above: Order Comment: Name Collection Type: Clean-Voided Midstream Performed By: #### U A #### [address] Nitrite,Urine Negative Normal Negative [facility] Comment on above: Order Comment: Name Collection Type: Clean-Voided Midstream Performed By: #### U A #### [address] Occult Blood,Urine Negative Normal Negative [facility] Comment on above: Order Comment: Name Collection Type: Clean-Voided Midstream Result Comment: PERF ORMED BY: [place] [address] PATHOLOGIST CUSTOMER SERVICE ADVISOR BIANCA GARG M.D. Performed By: #### U A #### [address] pH (U) 6.5 [pH] Normal 5.0-9.0 [facility] Comment on above: Order Comment: Name Collection Type: Clean-Voided Midstream Performed By: #### U A #### [address] Protein mass conc (U) Negative Normal Negative [facility] Comment on above: Order Comment: Name Collection Type: Clean-Voided Midstream Performed By: #### U A #### [address] Specificy [place],Urine 1.025 Normal 1.001-1.030 [facility] Comment on above: Order Comment: Name Collection Type: Clean-Voided Midstream Performed By: #### U A #### [address] Urobilinogen,Urine Normal Normal Normal [facility] Comment on above: Order Comment: Name Collection Type: Clean-Voided Midstream Performed By: #### U A #### [address] Encounters Encounter Date Encounter Type Care Provider Facility Start: 12-19-2022 ambulatory DIXIE [facility] Start: 11-28-2022 End: 11-29-2022 ambulatory DIXIE [facility] Start: 07-13-2022 Encounter for genera l adult medical examination without abnormal findings YING NAVARRO [facility] Start: 07-11-2022 End: 07-11-2022 ambulatory YING NAVARRO Facility:[facility] Start: 07-09-2022 End: 07-10-2022 ambulatory YING NAVARRO Facility:[facility] Start: 07-09-2022 End: 07-10-2022 Encounter for general adult medical examination without abnormal findings YING NAVARRO Facility:[facility] Start: 11-10-2021 ambulatory YING NAVARRO Facility: [facility] Start: 05-18-2020 End: 05-19-2020 ambulatory YARIEL ELISE Facility:[facility] Start: 08-10-2018 End: 08-17-2018 Evaluation and management of inpatient NON STAFF Facility:[facility] Procedures Date Procedure Procedure Detail Performing Clinician Start: 05-18-2020 ANESTH LOWER LEG SURGERY FÁTIMA SALAZAR Start: 05-18-2020 DRAIN/INJ JOINT/BURSA W/O US YARIEL EBRAHEIM Start: 05-18-2020 NEEDLE LOCALIZATION BY XRAY YARIEL ELISE Start: 05-18-2020 REVISION OF LOWER LEG TENDON YARIEL EBJAY Payers Date Payer Category Payer Self-pay 2018 Unknown [id number] 1970 Unknown [id number] 1970 Unknown [id number] 2.16.84 [id number] 1971 Unknown [id number] [id number] 1971 Unknown [id number] 2.16.84 [id number] 1959 Private Health Insurance [id number] 1959 Unknown [id number] 1959 Unknown [id number] Unknown [id number] Progress note 12-19-2022 Note Date & Type [...] to verify the correct patient, procedure, equipment, legal support manager and site/side marked as required. Patient was prepped and draped in the usual sterile fashion. [facility] Progress note 11-28-2022 Note Date & [...] 3 Plan: C9 for CSI Right knee [facility] Summary Purpose Family History No Family History Records FoundNo Family History Records FoundNo Family History Records FoundNo Family History Records Found Advance Directives No Advanced Directives Records FoundNo Advanced Directives Records FoundNo Advanced Directives Records FoundNo Advanced Directives Records Found Additional Source Comments INFORMATION SOURCE (unrecogn ized section and content) DATE CREATED AUTHOR 08/22/2018 [facility] DATE CREATED AUTHOR AUTHOR'S ORGANIZ ATION 03/15/2021 [facility] DATE CREATED AUTHOR AUTHOR'S ORGANIZ ATION 07/22/2022 [facility] DATE CREATED AUTHOR AUTHOR'S ORGANIZ ATION 08/21/2023 [facility] FOR RECORDS PERTAINING TO PATIENTS WHO [...] BE BASED ON THE PRIMARY CLINICAL RECORDS. [employer] provides no warranty or guarantee of the accuracy or completeness of information in this document.
[2023-11-14 12:36] LABS: Estimated Average Glucose 148 mg/dL; Glycohemoglobin A1C 6.8 % (4.5-6.2)
== END 2023-11-14 12:14 | disposition home or self-care (01) ==
LOC: LAB 12:14
PROVIDERS: PCP Nurse Practitioner Family; Visit Provider Nurse Practitioner Family
DX: E11.9 Type 2 diabetes mellitus without complications (principal)
CPT/HCPCS: 36415; 83036

== ENCOUNTER 2023-12-18 13:29 | Outpatient (OUT) | payer OTHER, SELFPAY ==
--- NOTE | 2023-12-18 13:34 | US_ITS ---
The [address] [address] Patient Name: ABBEY PAPPAS MRN: [id number] date: 1970 Sex: F Assigned Patient Location: US Current Patient Location: Accession/Order Number: [id number] Exam Date: 12/18/2023 13:42 Report Date: 12/20/2023 06:23 At the request of: BEATRIS ROTH Procedure: US thyroid EXAMINATION: US thyroid HISTORY: Unspecified Hypothyroidism E03.9 COMPARISON: No relevant comparison available. FINDINGS: RIGHT LOBE: Slightly heterogeneous and contains a 6 mm TR 3 nodule within inferior pole. Lobe size: 3.6 x 1.3 x 1.2 cm LEFT LOBE: Slightly heterogeneous, but no suspicious nodules. Lobe size: 3.4 x 1.1 x 1.2 cm ISTHMUS: Slightly heterogeneous and minimally thickened. Thickness: 4 mm. US/US thyroid IMPRESSION: 1. Slightly heterogeneous thyroid gland with nonspecific 6 mm TR 3 nodule within right lobe. No additional follow-up recommended at this time. TR3 (mildly suspicious): > 1.5 cm, follow-up ultrasound in 1, 3, and 5 years. > 2.5 cm, fine needle aspiration. Electronically authenticated by: CHON MAXWELL Date: 12/20/2023 06:23
== END 2023-12-18 13:30 | disposition home or self-care (01) ==
LOC: US 13:29
PROVIDERS: PCP Nurse Practitioner Family; Visit Provider Internal Medicine
DX: E03.9 Hypothyroidism, unspecified (principal)
CPT/HCPCS: 76536

== ENCOUNTER 2024-07-19 15:09 | Emergency (ER) | payer OTHER, MEDICAID, SELFPAY ==
[2024-07-19 15:17] VITALS: BP 159/62; PULSE 100; TEMP 36.9; O2SAT 93; BMI 31.3
--- OUTSIDE RECORDS SUMMARY | 2024-07-19 15:17 | XMS_ITS | CCD ---
Author Organization [place] [facility] PLAN CHECKER [facility] Care Team Providers Care Garage Door Installer Name Role Phone NON STAFF Primary Care Unavailable Erica Preston Consulting Unavailable Luis, Sameh Admitting Unavailable Rimary anne, Sameh Attending Unavailable EBRAHEIM, YARIEL Admitting Unavailable EBRAHEIM, YARIEL Attending Unavailable UNKNOWN, PHYSICIAN Referring Unavailable UNKNOWN, PHYSICIAN Primary Care Unavailable FÁTIMA SALAZAR Surgeon Unavailable [place] Procedure Practitioner Unavailab le [place] Procedure Practitioner Unavailab le YARIEL ELISE Surgeon Unavailable RAMON, MARY Primary Care Unavailable RAMON, MARY Admitting Unavailable RAMON, MARY Attending Unavailable RAMON, MARY Attending Unavailable RAMON, MARY Consulting Unavailable RAMON, MARY Primary Care Unavailable RAMON, MARY Admitting Unavailable RAMON, MARY Attending Unavailable RAMON, MARY Consulting Unavailable RAMON, MARY Primary Care Unavailable RAMON, MARY Admitting Unavailable MARCO ROTH Attending Unavailable MARCO ROTH Referring Unavailable Unallocated , Jessika Provider Primary Care Provi julian DIXIE SOOD Attending Unavailable Allergies Allergy Classification Reported Allergen(s) Allergy Type Date of Onset Reaction(s) Facility (1 source) Naproxen Drug Allergy 08-10-2018 [facility] Repository (3 sources) Naproxen Drug Allergy 03-27-2015 [facility] Repository (1 source) Naproxen Drug Allergy 05-18-2020 [facility] Repository (4 sources) Naproxen Drug Allergy 05-27-2022 [facility] (1 source) Naproxen; Translations: [NAPROXEN SODIUM] Drug Allergy 05-27-2022 [facility] Repository Medications Current Medications Medication Drug Class(es) Dates Sig (Normalized) Sig (Original) levothyroxine sodium 0.175 mg oral tablet (6 sources) l-Thyroxine Start: 03-11-2024 End: 06-09-2024 take 1 tablet by mouth before mealtime levothyroxine (Synthroid, Levoxyl) 175 MCG tablet Indications: Acquired hypothyroidism (CMS/HCC) Take 1 tablet (175 mcg) by mouth in the morning. Take before meals. 30 tablet 1 03/11/2024 06/09/2024 Active meloxicam 15 mg oral tablet (4 sources) Nonsteroidal Anti-inflammatory Drug Start: 12-15-2023 take 1 tablet by mouth in the morning meloxicam (Mobic) 15 MG tablet Take 15 mg by mouth in the morning. 12/15/2023 Active Semaglutide-Weight Management (Wegovy) 0.25 MG/0.5ML solution auto-injector (4 sources) Semaglutide-Weig ht Management (Wegovy) 0.25 MG/0.5ML solution auto-injector Inject under the skin Active simvastatin 20 mg oral tablet (4 sources) HMG-CoA Reductase Inhibitor take 1 tablet by mouth at bedtime simvastatin (Zocor) 20 MG tablet Take 1 tablet by mouth at bedtime Active Problems Active Problems Problem Classification Problem Date Documented Date Episodic/Chronic Administrative/social admission (3 sources) Other reduced mobility; Translations: [Patient encounter status] Onset: 08-10-2018 03-11-2024 Episodic Deficiency and other anemia (1 source) Anemia, unspecified; Translations: [D64.9 - Anemia, unspecified] Onset: 08-10-2018 Episodic Essential hypertension (1 source) Essential (primary) hypertension; Translations: [I10 - Essential (primary) hypertension] Onset: 08-10-2018 Chronic Nutritional deficiencies (2 sources) Vitamin D deficiency; Translations: [Vitamin D deficiency, unspecified] 03-11-2024 Chronic Nutritional deficiencies (1 source) Deficiency of [...] acute postprocedural pain] Onset: 08-10-2018 Episodic Other nutritional; endocrine; and metabolic disorders (2 sources) Obesity; Translations: [Obesity, unspecified] 03-11-2024 Chronic Other screening for suspected conditions (not mental disorders or infectious disease) (1 source) Other specified abnormal findings of blood chemistry; Translations: [R79.89 - Other specified abnormal findings of blood chemistry] Onset: 08-10-2018 Episodic Residual codes; unclassified (1 source) Other specified postprocedural states; Translations: [Z98.890 - Other specified postprocedural states] Onset: 08-10-2018 Thyroid disorders (4 sources) Acquired hypothyroidism; Translations: [Hypothyroidism, unspecified] 03-11-2024 Chronic Unclassified (1 source) S82.141A - Displaced bicondylar [...] for closed fracture with routine healing] Onset: 02-27-2024 Episodic Results Test Name Value Interpretation Reference Range Facility 36on 07-10-2024 36 Medication refused due to failing protocol. Requested Prescriptions Pending Prescriptions Disp Refills meloxicam (Mobic) 15 mg tablet [Pharmacy Med Name: MELOXICAM 15 MG TABLET] 30 tablet 3 Sig: TAKE 1 TABLET BY MOUTH EVERY DAY IN THE MORNING NSAIDs Protocol Failed - 07/10/2024 12:28 AM Failed - Normal serum creatinine in past 9 months Creatinine Date Value Ref Range Status 05/16/2020 0.79 0.60 - 1.20 mg/dL Final Failed - Normal serum potassium in past 9 months Potassium Date Value Ref Range Status 05/16/2020 4.2 3.5 - 5.1 meq/L Final Failed - AST less than 55 or ALT less than 90 in past 9 months AST Date Value Ref Range Status 10/31/2018 22 13 - 39 IU/L Final ALT (SGPT) Date Value Ref Range Status 10/31/2018 42 7 - 52 IU/L Final Failed - HGB greater than 10 or HCT greater than 30 in past 9 months Failed - Active on medication list Passed - Visit with relevant provider in past 9 months or upcoming 90 days Recent Visits Date Type Provider Dept 02/27/24 Follow-Up [facility] Showing recent visits within past 270 days and meeting all other requirements Future Appointments No visits were found meeting these conditions. Showing future appointments within next 90 days and meeting all other requirements Passed - No active on record Passed - No test in the past 12 months or most recent test was negative Passed - Medication not refilled in past 45 days (1.5 months) No matching medication orders between 05/26/2024 7:38 AM and 07/10/2024 7:38 AM Normal [facility] No Panel Informationon 03-13 Interpretation and review of laboratory results Abnormal [facility] Performed at: - [address] [id number] Black Pickler: Gold Foster PhD, Phone: [phone] Specimen Comment: A duplicate report has been generated due to demographic updates. [facility]2024 Free T3 [Mass/Vol] 2.5 pg/mL 2.0 - 4.4 pg/mL [facility] T4, freeon 03-13-2024 Free T4 [Mass/Vol] 1.59 ng/dL 0.82 - 1. 77 ng/dL [facility] TSHon 03-13-2024 TSH Qn 1.220 m[IU]/L [facility] Thyroglobulin Antibodyon Thyroglobulin Ab Qn 6.5 [IU]/mL High [facility] Comment on above: Thyroglobulin Antibo dy measured by Janae [place] Methodology It should be noted that the presence of thyroglobulin antibodies may not be pathogenic nor diagnostic, especially at very low levels. The assay data center architect has found that four percent of individuals without evidence of thyroid disease or autoimmunity will have positive TgAb levels up to 4 IU/mL. Thyroid peroxidase antibodyo n 03-13-2024 TPO Ab Qn 538 [IU]/mL High [facility] 36on 03-04-2024 36 Please adjust paperwork [facility] 36on 03-01-2024 36 Patient called in regard to FMLA paperwork Her paper work states 8 hr shifts. Her employer will not accept due to patient working 12hour shifts. Patient is requesting paperwork to be corrected to 8-12hr shifts and re faxed . Please call patient when complete [phone] [facility] Follow-Upon 02-27-2024 Follow-Up [id number] Abbey Swartz 1970 F Date Provider Department Center 02/27/2024 DIXIE WINSTON MP Family History Family history unknown: Yes Family Status - Relation Status Age at Mother Father Level of Service:98576 [place] OFFICE/OUTPATIENT ESTABLISHED SF MDM 10 MIN Reason for Visit and Comments: Pain [136] [facility] Refillon 01-13-2024 Refill [id number] Abbey Swartz 1970 F Date Provider Department Center 01/13/2024 DIXIE WINSTON MP Family History Family history unknown: Yes Family Status - Relation Status Age at Mother Father Reason for Visit and Comments: Med Refill [[id number]] [facility] 36on 12-15-2023 36 Approving, but needs appt for additional refills. Normal [facility] 36on 08-21-2023 36 Approving, but needs appt for additional refills. Normal [facility] 36on 07-19-2023 36 Approving, but needs appt for additional refills. Normal [facility] INSULINon 07-11-2022 Insulin 27.8 uIU/mL Critically high 2.6-24.9 [facility] Comment on above: Performed By: #### I NSULIN #### [facility] [address] [place] [address] Dr. Heather Del Toro OCC BLD IMMUNO SCREENon 06-20 OCCULT BLOOD Negative Normal NEGATIVE [facility] Comment on above: Performed By: #### O BSCRN #### [facility] [address] [place] [address] Dr. Heather Del Toro CBC AUTO DIFFon 07-09-2022 BASO # 0.0 103/ul Normal 0.0-0.1 [facility] Comment on above: Performed By: #### C BC #### [facility] [address] [place] [address] Dr. Heather Del Toro Basophils/100 WBC (Bld) 0.2 % Normal 0.2-2.0 [facility] Comment on above: Performed By: #### C BC #### [facility] [address] [place] [address] Dr. Heather Del Toro EO # 0.1 103/ul Normal 0.0-0.7 [facility] Comment on above: Performed By: #### C BC #### [facility] [address] [place] [address] Dr. Heather Del Toro Eosinophils/100 WBC (Bld) 1.0 % Normal 0.9-7.0 [facility] Comment on above: Performed By: #### C BC #### [facility] [address] [place] [address] Dr. Heather Del Toro Erythrocyte distribution width (RBC) [Ratio] 14.9 % Normal 11.0-15.0 [facility] Comment on above: Performed By: #### C BC #### [facility] [address] [place] [address] Dr. Heather Del Toro Hematocrit (Bld) [Volume fraction] 36.6 % Normal 36.0-48.0 [facility] Comment on above: Performed By: #### C BC #### [facility] [address] [place] [address] Dr. Heather Del Toro Hemoglobin (Bld) [Mass/Vol] 12.5 g/dL Normal 12.0-16.0 [facility] Comment on above: Performed By: #### C BC #### [facility] [address] [place] [address] Dr. Heather Del Toro IG # 0.01 10e3/ul Normal 0.00-0.03 [facility] Comment on above: Performed By: #### C BC #### [facility] [address] [place] [address] Dr. Heather Del Toro IG % 0.1 % Normal 0.0-0.5 [facility] Comment on above: Performed By: #### C BC #### [facility] [address] [place] [address] Dr. Heather Del Toro LYMPH # 3.2 103/ul Normal 1.2-3.8 [facility] Comment on above: Performed By: #### C BC #### [facility] [address] [place] [address] Dr. Heather Del Toro Lymphocytes/100 WBC (Bld) 39.0 % Normal 20.5-60.0 [facility] Comment on above: Performed By: #### C BC #### [facility] [address] [place] [address] Dr. Heather Del Toro MANUAL DIFF REQ NO Normal [facility] Comment on above: Performed By: #### C BC #### [facility] [address] [place] [address] Dr. Heather Del Toro MCH (RBC) [Entitic mass] 27.2 pg Normal 26.7-34.0 [facility] Comment on above: Performed By: #### C BC #### [facility] [address] [place] [address] Dr. Heather Del Toro MCHC (RBC) [Mass/Vol] 34.2 g/dL Normal 29.9-35.2 [facility] Comment on above: Performed By: #### C BC #### [facility] [address] [place] [address] Dr. Heather Del Toro MCV (RBC) [Entitic vol] 79.7 fL Critically low 81.0-99.0 [facility] Comment on above: Performed By: #### C BC #### [facility] [address] [place] [address] Dr. Heather Del Toro MONO # 0.6 103/ul Normal 0.3-0.8 [facility] Comment on above: Performed By: #### C BC #### [facility] [address] [place] [address] Dr. Heather Del Toro Monocytes/100 WBC (Bld) 6.7 % Normal 1.7-12.0 [facility] Comment on above: Performed By: #### C BC #### [facility] [address] [place] [address] Dr. Heather Del Toro NEUT # 4.4 103/ul Normal 1.4-6.5 [facility] Comment on above: Performed By: #### C BC #### [facility] [address] [place] [address] Dr. Heather Del Toro Neutrophils/100 WBC (Bld) 53.0 % Normal 43.0-75.0 [facility] Comment on above: Performed By: #### C BC #### [facility] [address] [place] [address] Dr. Heather Del Toro Platelet mean volume (Bld) [Entitic vol] 11.2 fL Normal 9.5-13.5 [facility] Comment on above: Performed By: #### C BC #### [facility] [address] [place] [address] Dr. Heather Del Toro PLT 168 103/ul Normal 150-450 [facility] Comment on above: Performed By: #### C BC #### [facility] [address] [place] [address] Dr. Heather Del Toro RBC 4.59 106/ul Normal 4.20-5.40 [facility] Comment on above: Performed By: #### C BC #### [facility] [address] [place] [address] Dr. Heather Del Toro WBC 8.3 103/ul Normal 4.0-11.0 [facility] Comment on above: Performed By: #### C BC #### [facility] [address] [place] [address] Dr. Heather Del Toro FREE THYROXINE INDEX T7on FTI 3.30 Normal 1.30-4.50 [facility] Comment on above: Performed By: #### L IPID, CMP, T7, TSH #### [facility] [address] [address] [address] Heather Del Toro T3U 32.0 % Normal 30.0-39.0 [facility] Comment on above: Performed By: #### L IPID, CMP, T7, TSH #### [facility] [address] [address] [address] Heather Del Toro T4 [Mass/Vol] 10.30 ug/dL Normal 4.80-13.90 [facility] Comment on above: Performed By: #### L IPID, CMP, T7, TSH #### [facility] [address] [place] [address] Dr. Heather Del Toro GLYCOHEMOGLOBIN A1Con 2022 ADA RECOMMENDATION SEE BELOW Normal [facility] Comment on above: Result Comment: ADA RECOMMENDED LIMIT 4.0 - 6.0 ADA THERAPEUTIC TARGET < 7.0 ACTION SUGGESTED > 7.0 Performed By: #### A 1C #### [facility] [address] [place] [address] Dr. Heather Del Toro Glucose [Mass/Vol] 146 mg/dL Normal [facility] Comment on above: Performed By: #### A 1C #### [facility] [address] [place] [address] Dr. Heather Del oTro HbA1c (Bld) [Mass fraction] 6.7 % Critically high 4.5-6.2 [facility] Comment on above: Performed By: #### A 1C #### [facility] [address] [place] [address] Dr. Heather Del Toro IRONon 07-09-2022 Iron [Mass/Vol] 26.0 ug/dL Critically low 50.0-170.0 [facility] Comment on above: Performed By: #### I YAKOV #### [facility] [address] [place] [address] Dr. Heather Del Toro LIPID PROFILEon 07-09-2022 CHOL-HDL RATIO NORM SEE BELOW Normal [facility] Comment on above: Result Comment: 3.3 - 4.4 LOW RISK 4.4 - 7.1 AVERAGE RISK 7.1 - 11.0 MODERATE RISK >11.0 HIGH RISK Performed By: #### L IPID, CMP, T7, TSH #### [facility] [address] [address] [address] Heather Del Toro Cholesterol [Mass/Vol] 212 mg/dL Critically high <=200 [facility] Comment on above: Performed By: #### L IPID, CMP, T7, TSH #### [facility] [address] [address] [address] Heather Del Toro Cholesterol in HDL [Mass/Vol] 39 mg/dL Critically low 40-60 [facility] Comment on above: Performed By: #### L IPID, CMP, T7, TSH #### [facility] [address] [address] [address] Heather Del Toro Cholesterol in LDL [Mass/Vol] 150.6 mg/dL Normal [facility] Comment on above: Performed By: #### L IPID, CMP, T7, TSH #### [facility] [address] [address] [address] Heather Del Toro Cholesterol.total/Ch olesterol in HDL [Mass ratio] 5.4 {ratio} Normal [facility] Comment on above: Performed By: #### L IPID, CMP, T7, TSH #### [facility] [address] [address] [address] Heather Del Toro HDL NORMAL > or = 60 mg/dl - LO W CARDIOVASCULAR RISK <40 mg/dl - HIGH CARDIOVASCULAR RISK Normal [facility] Comment on above: Performed By: #### L IPID, CMP, T7, TSH #### [facility] [address] [address] [address] Heather Del Toro LDL CALC NORMAL SEE BELOW Normal [facility] Comment on above: Result Comment: <100 mg/dl OPTIMAL 100 - 129 mg/dl NEAR OR ABOVE OPTIMAL 130 - 159 mg/dl BORDERLINE HIGH 160 - 189 mg/dl HIGH >190 mg/dl VERY HIGH Performed By: #### L IPID, CMP, T7, TSH #### [facility] [address] [address] [address] Heather Del Toro Triglyceride [Mass/Vol] 112 mg/dL Normal <=150 [facility] Comment on above: Performed By: #### L IPID, CMP, T7, TSH #### [facility] [address] [address] [address] Heather Del Toro VLDL CALC 22.4 mg/dL Normal [facility] Comment on above: Performed By: #### L IPID, CMP, T7, TSH #### [facility] [address] [address] [address] Heather Del Toro PROF 14(COMP METB)on 023 Albumin [Mass/Vol] 3.9 g/dL Normal 3.4-5.0 [facility] Comment on above: Performed By: #### L IPID, CMP, T7, TSH #### [facility] [address] [place] [address] Dr. Heather Del Toro Albumin/Globulin [Mass ratio] 1.2 {ratio} Normal [facility] Comment on above: Performed By: #### L IPID, CMP, T7, TSH #### [facility] [address] [address] [address] Heather Del Toro ALP [Catalytic activity/Vol] 132 U/L Critically high 46-116 [facility] Comment on above: Performed By: #### L IPID, CMP, T7, TSH #### [facility] [address] [place] [address] Dr. Heather Del Toro ALT [Catalytic activity/Vol] 93 U/L Critically high 14-59 [facility] Comment on above: Performed By: #### L IPID, CMP, T7, TSH #### [facility] [address] [address] [address] Heather Del Toro Anion gap [Moles/Vol] 11.5 mmol/L Normal [facility] Comment on above: Performed By: #### L IPID, CMP, T7, TSH #### [facility] [address] [address] [address] Heather Del Toro AST [Catalytic activity/Vol] 43 U/L Critically high 15-37 [facility] Comment on above: Performed By: #### L IPID, CMP, T7, TSH #### [facility] [address] [place] [address] Dr. Heather Del Toro Bilirubin [Mass/Vol] 0.3 mg/dL Normal 0.2-1.0 [facility] Comment on above: Performed By: #### L IPID, CMP, T7, TSH #### [facility] [address] [place] [address] Dr. Heather Del Toro Calcium [Mass/Vol] 9.1 mg/dL Normal 8.5-10.1 [facility] Comment on above: Performed By: #### L IPID, CMP, T7, TSH #### [facility] [address] [place] [address] Dr. Heather Del Toro Chloride [Moles/Vol] 104 mmol/L Normal 98-107 [facility] Comment on above: Performed By: #### L IPID, CMP, T7, TSH #### [facility] [address] [place] [address] Dr. Heather Del Toro CO2 [Moles/Vol] 28.9 mmol/L Normal 21.0-32.0 [facility] Comment on above: Performed By: #### L IPID, CMP, T7, TSH #### [facility] [address] [place] [address] Dr. Heather Del Toro Creatinine [Mass/Vol] 0.73 mg/dL Normal 0.55-1.02 [facility] Comment on above: Performed By: #### L IPID, CMP, T7, TSH #### [facility] [address] [place] [address] Dr. Heather Del Toro EGFR-AF HAITIAN >60 Normal >=60 [facility] Comment on above: Performed By: #### L IPID, CMP, T7, TSH #### [facility] [address] [place] [address] Dr. Heather Del Toro EGFR-NON AF HAITIAN >60 Normal >=60 [facility] Comment on above: Performed By: #### L IPID, CMP, T7, TSH #### [facility] [address] [place] [address] Dr. Heather Del Toro Globulin (S) [Mass/Vol] 3.3 g/dL Normal [facility] Comment on above: Performed By: #### L IPID, CMP, T7, TSH #### [facility] [address] [address] [address] Heather Del Toro Glucose [Mass/Vol] 106 mg/dL Normal 74-106 [facility] Comment on above: Performed By: #### L IPID, CMP, T7, TSH #### [facility] [address] [address] [address] Heather Del Toro Potassium [Moles/Vol] 4.4 mmol/L Normal 3.5-5.1 [facility] Comment on above: Performed By: #### L IPID, CMP, T7, TSH #### [facility] [address] [address] [address] Heather Del Toro Protein [Mass/Vol] 7.2 g/dL Normal 6.4-8.2 [facility] Comment on above: Performed By: #### L IPID, CMP, T7, TSH #### [facility] [address] [address] [address] Heather Del Toro Sodium [Moles/Vol] 140 mmol/L Normal 136-145 [facility] Comment on above: Performed By: #### L IPID, CMP, T7, TSH #### [facility] [address] [address] [address] Heather Del Toro Urea nitrogen [Mass/Vol] 10.0 mg/dL Normal 7.0-18.0 [facility] Comment on above: Performed By: #### L IPID, CMP, T7, TSH #### [facility] [address] [address] [address] Heather Del Toro Urea nitrogen/Creatinine [Mass ratio] 13.7 mg/mg Normal [facility] Comment on above: Performed By: #### L IPID, CMP, T7, TSH #### [facility] [address] [address] [address] Heather Del Toro TSHon 07-09-2022 TSH 4.912 uIU/mL Critically high 0.358-3.740 [facility] Comment on above: Performed By: #### L IPID, CMP, T7, TSH #### [facility] [address] [address] [address] Heather Del Toro ANKLE RIGHT 2 [facility] 05-18-20 20 ANKLE RIGHT 2 [facility] Department of Radiology [address] [place] [id number] Patient Name: ABBEY SWARTZ : 1970 [...] JOINT CORTICOSTEROID INJECTION Exam: ANKLE RIGHT 2 [facility] ANKLE RIGHT 2 [facility] 05/18/2020 12:53 PM CLINICAL INDICATIONS: RIGHT [...] IMPRESSION: Electronically signed: Shivam Church. Transcribed by: [email or web address], User Resident: Electronically Signed by: SHIVAM CHURCH @ 05/18/2020 01:33 PM Normal [facility] Comment on above: Order Comment: RIGHT PERCUTANEOUS ACHILLES TENDON LENGTHENING WITH RIGHT ANKLE JOINT CORTICOSTEROID INJECTION Operative Reporton 0 Operative Report MR#: [id number] [facility] Pt. Name: Abbey Swartz Room #: [...] Villarreal MD Date Trans: 05/18/2020 06:45 P/angie [id number] Normal [facility] POC GLUCOSE LABon 05-18-2020 Glucose [Mass/Vol] 101 mg/dL High 70-100 [facility] Comment on above: Performed By: #### 8 [id number] #### [facility] [address] [facility] [place] [address], [facility] Glucose [Mass/Vol] 106 mg/dL High 70-100 [facility] Comment on above: Performed By: #### 8 5499 ####[facility] *MRSA/MSSA DNA NASALon 05-16 *MRSA/MSSA DNA NASAL Clinical Report: (D ) Specimen: NASAL SWAB Collected: 05/16/2020 10:34 Status: Final Last Updated: 05/17/2020 09:45 MSSA DNA (Final) Negative MRSA DNA (Final) Negative Normal [facility] Comment on above: Performed By: #### 3 1595 #### [facility] [address] *SARS-CoV-2 COVID-19on 05-16 SARS-CoV-2 (COVID-19) RNA NEVILLE+probe Ql (Unsp spec) Not detected Normal Not Detected [facility] Comment on above: Order Comment: The A ptima SARS-CoV-2 assay is a nucleic acid amplification test intended for the qualitative detection of RNA from SARS-CoV-2 isolated and purified from nasopharyngeal (FUR CLIPPER),oropharyngeal (OP), nasal swab, sputum, and bronchoalveolar lavage (BAL) specimens from patients with signs and symptoms of infection who are suspected of COVID-19. Results are for the identification of SARS-CoV-2 RNA. The SARS-CoV-2 RNA is generally detectable during the acute phase of infection. The Aptima SARS-CoV-2 Assay on the NCLC and NCLC Fusion system is intended for use by laboratory personnel specifically instructed and trained in the operation of the [place] and NCLC Fusion system. The Aptima SARS-CoV-2 assay is [...] information. Performed By: #### 3 1792 #### [facility] [address] APTTon 05-16-2020 aPTT Coag (Bld) [Time] 32.1 s Normal 25.0-35.0 [facility] Comment on above: Result Comment: ALL [...] THIS PURPOSE. Performed By: #### 5 6101, [id number] #### [facility] [address] [facility]. [address] BASIC METABOLIC PANELon 04-20 Calcium [Mass/Vol] 9.5 mg/dL Normal 8.6-10.3 [facility] Comment on above: Performed By: #### 0 0071 #### [facility] [address] [place] [address], [facility] Chloride [Moles/Vol] 104 mmol/L Normal 98-107 [facility] Comment on above: Performed By: #### 0 0071 #### [facility] [address] [place] [address], [facility] CO2 [Moles/Vol] 28 mmol/L Normal 21-31 [facility] Comment on above: Performed By: #### 0 0071 #### [facility] [address] [place] [address], [facility] Creatinine [Mass/Vol] 0.79 mg/dL Normal 0.60-1.20 [facility] Comment on above: Performed By: #### 0 0071 #### [facility] [address] [place] [address], [facility] GFR/1.73 sq M.predicted among blacks MDRD (S/P/Bld) [Vol rate/Area] mL/min/{1.73_m2} Normal >60 [facility] Comment on above: Performed By: #### 0 0071 #### [facility] [address] [place] [address], [facility] GFR/1.73 sq M.predicted among non-blacks MDRD (S/P/Bld) [Vol rate/Area] mL/min/{1.73_m2} Normal >60 [facility] Comment on above: Performed By: #### 0 0071 #### [facility] [address] [place] [address], [facility] Glucose [Mass/Vol] 116 mg/dL High 70-100 [facility] Comment on above: Performed By: #### 0 0071 #### [facility] [address] [place] [address], [facility] Potassium [Moles/Vol] 4.2 mmol/L Normal 3.5-5.1 [facility] Comment on above: Performed By: #### 0 0071 #### [facility] [address] [place] [address], [facility] Sodium [Moles/Vol] 139 mmol/L Normal 136-145 [facility] Comment on above: Performed By: #### 0 0071 #### [facility] [address] [facility] [place] [address], [facility] Urea nitrogen [Mass/Vol] 8 mg/dL Normal 7-25 [facility] Comment on above: Performed By: #### 0 0071 #### [facility] [address] [facility]. [place] [id number], [facility] CBC W/DIFFon 05-16-2020 ABS IMM GRANS 0.0 10*3/uL Normal 0.0-0.2 [facility] Comment on above: Performed By: #### 5 0103 #### [facility] [address] [place] [place] [address], [facility] ABS NEUTROPHILS 5.7 10*3/uL Normal 1.6-7.6 [facility] Comment on above: Performed By: #### 5 0103 #### [facility] [address] [place] [address], [facility] Basophils (Bld) [#/Vol] 0.0 10*3/uL Normal 0.0-0.2 [facility] Comment on above: Performed By: #### 5 0103 #### [facility] [address] [place] [address], [facility] Basophils/100 WBC (Bld) 0.3 % Normal 0.0-1.0 [facility] Comment on above: Performed By: #### 5 0103 #### [facility] [address] [facility] [address], [facility] Eosinophils (Bld) [#/Vol] 0.1 10*3/uL Normal 0.0-0.5 [facility] Comment on above: Performed By: #### 5 0103 #### [facility] [address] [place] [address], [facility] Eosinophils/100 WBC (Bld) 1.4 % Normal 0.0-6.0 [facility] Comment on above: Performed By: #### 5 0103 #### [facility] [address] [place] [address], [facility] Erythrocyte distribution width (RBC) [Ratio] 16.6 % High 11.5-15.0 [facility] Comment on above: Performed By: #### 5 3 #### [facility] [address] [place] [address], [facility] Hematocrit (Bld) [Volume fraction] 41.8 % Normal 36.0-45.0 [facility] Comment on above: Performed By: #### 5 3 #### [facility] [address] [place] [id number], [facility] Hemoglobin (Bld) [Mass/Vol] 12.4 g/dL Normal 12.0-15.0 [facility] Comment on above: Performed By: #### 5 0103 #### [facility] [address] [place] [address], [facility] IMMATURE GRANS 0.3 % Normal 0.0-1.0 [facility] Comment on above: Performed By: #### 5 0103 #### [facility] [address] [place] [address], [facility] Lymphocytes (Bld) [#/Vol] 2.8 10*3/uL Normal 1.2-4.0 [facility] Comment on above: Performed By: #### 5 0103 #### [facility] [address] [place] [address], [facility] Lymphocytes/100 WBC (Bld) 29.8 % Normal 20.0-45.0 [facility] Comment on above: Performed By: #### 5 0103 #### [facility] [address] [place] [address], [facility] MCH (RBC) [Entitic mass] 25.2 pg Low 27.0-33.0 [facility] Comment on above: Performed By: #### 5 0103 #### [facility] [address] MCHC (RBC) [Mass/Vol] 29.7 g/dL Low 32.0-35.0 [facility] Comment on above: Performed By: #### 5 0103 #### [facility] [address] [place] [address], [facility] MCV (RBC) [Entitic vol] 85.0 fL Normal 82.0-98.0 [facility] Comment on above: Performed By: #### 5 3 #### [facility] [address] [place] [address], [facility] Monocytes (Bld) [#/Vol] 0.7 10*3/uL Normal 0.1-1.0 [facility] Comment on above: Performed By: #### 5 0103 #### [facility] [address] [place] [address], [facility] MONOS 7.2 % Normal 5.0-12.0 [facility] Comment on above: Performed By: #### 5 0103 #### [facility] [address] [facility] [place] [address], [facility] Neutrophils/100 WBC (Bld) 61.0 % Normal 40.0-72.0 [facility] Comment on above: Performed By: #### 5 0103 #### [facility] [address] [place] [address], [facility] Nucleated RBC/100 WBC (Bld) [Ratio] 0 % Normal 0-0 [facility] Comment on above: Performed By: #### 5 0103 #### [facility] [address] [place] [address], [facility] PLAT CNT 210 10*3/uL Normal 150-400 [facility] Comment on above: Performed By: #### 5 0103 #### [facility] [address] [place] [address], [facility] RBC (Bld) [#/Vol] 4.92 10*6/uL Normal 3.80-5.00 [facility] Comment on above: Performed By: #### 5 0103 #### [facility] [address] [place] [address], [facility] WBC (Bld) [#/Vol] 9.29 10*3/uL Normal 4.00-10.60 [facility] Comment on above: Performed By: #### 5 0103 #### [facility] [address] PROTHROMBIN TIMEon 11-202 0 INR Coag (PPP) [Relative time] 0.82 {INR} Low 0.91-1.16 [facility] Comment on above: Result Comment: ACCC [...] CHEST 1995;108:231S-246S. Performed By: #### 5 6101, [id number] #### [address] PT Coag (PPP) [Time] 11.3 s Low 12.3-14.8 [facility] Comment on above: Result Comment: ALL RESULTS MUST BE INTERPRETED WITH RESPECT TO BLOOD DRAWING ARTIFACT OR DILUTION ERROR OF ANTICOAGULANT AT THE TIME OF SAMPLING. 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 COMPARISON: None IMPRESSION: Unremarkable orbits. No radiopaque foreign body identified. Clear paranasal sinuses. Electronically signed: Sanjuana Keith. Transcribed by: [email or web address], User Resident: Electronically Signed by: SANJUANA KEITH @ 04/12/2020 08:45 AM Normal [facility] MRI ANKLE WO CONTRAST RIGHTo n 04-12-2020 MRI ANKLE WO CONTRAST RIGHT [facility] Department of Radiology [address] [place] [id number] Patient Name: ABBEY SWARTZ : 1970 Sex: F Age: Race: White Pt. 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 [facility] approved for CPT 48103 Approval Scanned into [employer] Claim# [id number] Valid 04/07/20-04/21/20 *SLA Comments: Please Evaluate Exam: [...] joint. Electronically signed: Sanjuana Keith. Transcribed by: [email or web address], User Resident: Electronically Signed by: SANJUANA KEITH @ 04/12/2020 12:00 PM Normal [facility] Comment on above: Order Comment: Niecy gleason Evaluate MRI FOOT WO CONTRAST RIGHTon 04-12-2020 MRI FOOT WO CONTRAST RIGHT [facility] Department of Radiology [address] [place] [id number] Patient Name: ABBEY SWARTZ : 1970 Sex: F Age: Race: White Pt. 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 Electronically signed: Sanjuana Keith. Transcribed by: [email or web address], User Resident: Electronically Signed by: SANJUANA KEITH @ 04/12/2020 12:15 PM Normal [facility] Comment on above: Order Comment: Madhavas victorino Evaluate Basic Metabolic Panelon - Calcium mass conc 8.8 mg/dL Normal 8.2-10.2 [facility] Comment on above: Performed By: #### C BC, BMP #### [address] Chloride molar conc 103 mmol/L Normal 95-114 [facility] Comment on above: Performed By: #### C BC, BMP #### [address] CO2 molar conc 26.6 mmol/L Normal 22.0-30.0 [facility] Comment on above: Performed By: #### C BC, BMP #### [address] Creatinine mass conc 0.71 mg/dL Normal 0.44-1.03 [facility] Comment on above: Performed By: #### C BC, BMP #### [place] [address] [place] Creatinine mass conc 101.2148533429 mg/dL Normal [facility] Comment on above: Result Comment: PERF ORMED BY: [place] [address] PATHOLOGIST PROFESSOR OF MARKETING BIANCA GARG M.D. Performed By: #### C BC, BMP #### [place] [address] [place] Estimated GFR ( Bhavna > 60 Normal [facility] Comment on above: Result Comment: GFR estimated reference range: According to KDOQI guidelines, <60 ml/min/1.73m2 is sufficient to diagnose a patient with chronic kidney disease. Performed By: #### C BC, BMP #### [address] Estimated GFR (Non- Am > 60 Normal [facility] Comment on above: Performed By: #### C BC, BMP #### [address] Glucose mass conc 103 mg/dL High 70-100 [facility] Comment on above: Result Comment: [place] om Glucose Reference Range is dependent on time and content of last meal. Glucose of more than 200 mg/dL in a nonstressed, ambulatory subject supports the diagnosis of Diabetes Mellitus. ADA recommended reference range Performed By: #### C BC, BMP #### [address] Potassium molar conc 4.0 mmol/L Normal 3.5-5.1 [facility] Comment on above: Performed By: #### C BC, BMP #### [address] Sodium molar conc 138 mmol/L Normal 136-146 [facility] Comment on above: Performed By: #### C BC, BMP #### [address] Urea nitrogen mass conc 9 mg/dL Normal 9-23 [facility] Comment on above: Performed By: #### C BC, BMP #### [address] Complete Blood Count Auto Di ffon 08-14-2018 Basophils #/vol (Bld) 0.0 10*3/uL Normal 0.0-0.2 [facility] Comment on above: Result Comment: PERF ORMED BY: [place] [address] PATHOLOGIST PROFESSOR [employer] BIANCA GARG M.D. Performed By: #### C BC, BMP #### [address] Basophils/100 WBC (Bld) 0.3 % Normal . [facility] Comment on above: Performed By: #### C BC, BMP #### [address] Eosinophils #/vol (Bld) 0.1 10*3/uL Normal 0.0-0.45 [facility] Comment on above: Performed By: #### C BC, BMP #### [address] Eosinophils/100 WBC (Bld) 1.9 % Normal . [facility] Comment on above: Performed By: #### C BC, BMP #### [address] Erythrocyte distribution width Ratio (RBC) 14.3 % Normal 11.9-15.3 [facility] Comment on above: Performed By: #### C BC, BMP #### [address] Hematocrit Volume Fraction (Bld) 30.5 % Low 34.0-46.4 [facility] Comment on above: Performed By: #### C BC, BMP #### [address] Hemoglobin mass conc (Bld) 10.0 g/dL Low 11.8-15.4 [facility] Comment on above: Performed By: #### C BC, BMP #### [address] Lymphocytes #/vol (Bld) 1.8 10*3/uL Normal 1.00-4.8 [facility] Comment on above: Performed By: #### C BC, BMP #### [address] Lymphocytes/100 WBC (Bld) 25.6 % Normal . [facility] Comment on above: Performed By: #### C BC, BMP #### [address] MCH Entitic mass (RBC) 32.9 g/dL Normal 32.0-35.0 [facility] Comment on above: Performed By: #### C BC, BMP #### [facility] [address] MCH Entitic mass (RBC) 30.0 pg Normal 24.7-34.3 [facility] Comment on above: Performed By: #### C BC, BMP #### [facility] [address] MCV Entitic volume (RBC) 91.3 fL Normal 80-100 [facility] Comment on above: Performed By: #### C BC, BMP #### [facility] [address] Monocytes #/vol (Bld) 0.6 10*3/uL Normal 0.0-0.8 [facility] Comment on above: Performed By: #### C BC, BMP #### [address] Monocytes/100 WBC (Bld) 8.1 % Normal . [facility] Comment on above: Performed By: #### C BC, BMP #### [facility] [address] [place] [address] Neutrophils #/vol (Bld) 4.4 10*3/uL Normal 1.8-7.7 [facility] Comment on above: Performed By: #### C BC, BMP #### [facility] [address] [place] [address] Neutrophils/100 WBC (Bld) 64.1 % Normal . [facility] Comment on above: Performed By: #### C BC, BMP #### [address] Nucleated RBC/100 WBC Ratio (Bld) 0.1 % Normal 0-0.5 [facility] Comment on above: Performed By: #### C BC, BMP #### [facility] [address] Platelet mean volume Entitic volume (Bld) 8.6 fL Normal 6.3-10.7 [facility] Comment on above: Performed By: #### C BC, BMP #### [facility] [address] Platelets #/vol (Bld) 254 10*3/uL Normal 150-450 [facility] Comment on above: Performed By: #### C BC, BMP #### [facility] [address] RBC #/vol (Bld) 3.35 10*6/uL Low 3.60-5.00 [facility] Comment on above: Performed By: #### C BC, BMP #### [facility] [address] WBC #/vol (Bld) 6.9 10*3/uL Normal 4.5-11.0 [facility] Comment on above: Performed By: #### C BC, BMP #### [address] Complete Blood Count Auto Di ffon 08-11-2018 Basophils #/vol (Bld) 0.0 10*3/uL Normal 0.0-0.2 [facility] Comment on above: Result Comment: PERF ORMED BY: [place] [address] PATHOLOGIST PROFESSOR [employer] MARKETING BIANCA GARG M.D. Performed By: #### C BC, CMP, PAB, B12, FOL #### [address] Basophils/100 WBC (Bld) 0.6 % Normal . [facility] Comment on above: Performed By: #### C BC, CMP, PAB, B12, FOL #### [address] Eosinophils #/vol (Bld) 0.1 10*3/uL Normal 0.0-0.45 [facility] Comment on above: Performed By: #### C BC, CMP, PAB, B12, FOL #### [address] Eosinophils/100 WBC (Bld) 1.2 % Normal . [facility] Comment on above: Performed By: #### C BC, CMP, PAB, B12, FOL #### [address] Erythrocyte distribution width Ratio (RBC) 14.1 % Normal 11.9-15.3 [facility] Comment on above: Performed By: #### C BC, CMP, PAB, B12, FOL #### [address] Hematocrit Volume Fraction (Bld) 30.4 % Low 34.0-46.4 [facility] Comment on above: Performed By: #### C BC, CMP, PAB, B12, FOL #### [address] Hemoglobin mass conc (Bld) 10.3 g/dL Low 11.8-15.4 [facility] Comment on above: Performed By: #### C BC, CMP, PAB, B12, FOL #### [address] Lymphocytes #/vol (Bld) 1.9 10*3/uL Normal 1.00-4.8 [facility] Comment on above: Performed By: #### C BC, CMP, PAB, B12, FOL #### [address] Lymphocytes/100 WBC (Bld) 23.9 % Normal . [facility] Comment on above: Performed By: #### C BC, CMP, PAB, B12, FOL #### [address] MCH Entitic mass (RBC) 30.9 pg Normal 24.7-34.3 [facility] Comment on above: Performed By: #### C BC, CMP, PAB, B12, FOL #### [address] MCH Entitic mass (RBC) 33.8 g/dL Normal 32.0-35.0 [facility] Comment on above: Performed By: #### C BC, CMP, PAB, B12, FOL #### [address] MCV Entitic volume (RBC) 91.5 fL Normal 80-100 [facility] Comment on above: Performed By: #### C BC, CMP, PAB, B12, FOL #### [facility] [address] Monocytes #/vol (Bld) 0.8 10*3/uL Normal 0.0-0.8 [facility] Comment on above: Performed By: #### C BC, CMP, PAB, B12, FOL #### [facility] [address] [place] [address] Monocytes/100 WBC (Bld) 9.7 % Normal . [facility] Comment on above: Performed By: #### C BC, CMP, PAB, B12, FOL #### [facility] [address] [place] [address] Neutrophils #/vol (Bld) 5.2 10*3/uL Normal 1.8-7.7 [facility] Comment on above: Performed By: #### C BC, CMP, PAB, B12, FOL #### [facility] [address] [place] [address] Neutrophils/100 WBC (Bld) 64.6 % Normal . [facility] Comment on above: Performed By: #### C BC, CMP, PAB, B12, FOL #### [facility] [address] [place] [address] Nucleated RBC/100 WBC Ratio (Bld) 0.2 % Normal 0-0.5 [facility] Comment on above: Performed By: #### C BC, CMP, PAB, B12, FOL #### [facility] [address] [place] [address] Platelet mean volume Entitic volume (Bld) 8.9 fL Normal 6.3-10.7 [facility] Comment on above: Performed By: #### C BC, CMP, PAB, B12, FOL #### [facility] [address] [place] [address] Platelets #/vol (Bld) 234 10*3/uL Normal 150-450 [facility] Comment on above: Performed By: #### C BC, CMP, PAB, B12, FOL #### [facility] [address] RBC #/vol (Bld) 3.32 10*6/uL Low 3.60-5.00 [facility] Comment on above: Performed By: #### C BC, CMP, PAB, B12, FOL #### [facility] [address] [place] [address] WBC #/vol (Bld) 8.1 10*3/uL Normal 4.5-11.0 [facility] Comment on above: Performed By: #### C BC, CMP, PAB, B12, FOL #### [address] Comprehensive Metabolic Pane robbie 08-11-2018 Albumin mass conc 2.9 g/dL Low 3.2-5.5 [facility] Comment on above: Performed By: #### C BC, CMP, PAB, B12, FOL #### [address] Albumin/Globulin mass ratio 0.9 {ratio} Normal [facility] Comment on above: Performed By: #### C BC, CMP, PAB, B12, FOL #### [address] ALP enzyme act/vol 98 U/L High 32-92 [facility] Comment on above: Performed By: #### C BC, CMP, PAB, B12, FOL #### [facility] [address] [place] [address] ALT enzyme act/vol 34 U/L Normal 10-60 [facility] Comment on above: Performed By: #### C BC, CMP, PAB, B12, FOL #### [facility] [address] [place] [address] AST enzyme act/vol 19 U/L Normal 10-42 [facility] Comment on above: Performed By: #### C BC, CMP, PAB, B12, FOL #### [facility] [address] [place] [address] Bilirubin mass conc 0.5 mg/dL Normal 0.3-1.2 [facility] Comment on above: Performed By: #### C BC, CMP, PAB, B12, FOL #### [facility] [address] [place] [address] [place] Calcium mass conc 8.7 mg/dL Normal 8.2-10.2 [facility] Comment on above: Performed By: #### C BC, CMP, PAB, B12, FOL #### [facility] [address] Chloride molar conc 101 mmol/L Normal 95-114 [facility] Comment on above: Performed By: #### C BC, CMP, PAB, B12, FOL #### [facility] [address] [place] [address] CO2 molar conc 24.8 mmol/L Normal 22.0-30.0 [facility] Comment on above: Performed By: #### C BC, CMP, PAB, B12, FOL #### [facility] [address] [place] [address] Creatinine mass conc 111.8458003524 mg/dL Normal [facility] Comment on above: Performed By: #### C BC, CMP, PAB, B12, FOL #### [facility] [address] [place] [address] Creatinine mass conc 0.63 mg/dL Normal 0.44-1.03 [facility] Comment on above: Performed By: #### C BC, CMP, PAB, B12, FOL #### [facility] [address] [place] [address] Estimated GFR ( Bhavna > 60 [facility] Comment on above: Result Comment: GFR estimated reference range: According to KDOQI guidelines, <60 ml/min/1.73m2 is sufficient to diagnose a patient with chronic kidney disease. Performed By: #### C BC, CMP, PAB, B12, FOL #### [facility] [address] [place] [address] Estimated GFR (Non- Am > 60 Normal [facility] Comment on above: Performed By: #### C BC, CMP, PAB, B12, FOL #### [facility] [address] Globulin mass conc (S) 3.1 g/dL Normal [facility] [facility] Comment on above: Performed By: #### C BC, CMP, PAB, B12, FOL #### [address] Glucose mass conc 138 mg/dL High 70-100 [facility] Comment on above: Result Comment: [place] Glucose Reference Range is dependent on time and content of last meal. Glucose of more than 200 mg/dL in a nonstressed, ambulatory subject supports the diagnosis of Diabetes Mellitus. ADA recommended reference range Performed By: #### C BC, CMP, PAB, B12, FOL #### [address] Potassium molar conc 3.8 mmol/L Normal 3.5-5.1 [facility] Comment on above: Performed By: #### C BC, CMP, PAB, B12, FOL #### [address] Protein mass conc 6.0 g/dL Low 6.1-7.9 [facility] Comment on above: Performed By: #### C BC, CMP, PAB, B12, FOL #### [address] Sodium molar conc 136 mmol/L Normal 136-146 [facility] Comment on above: Performed By: #### C BC, CMP, PAB, B12, FOL #### [address] Urea nitrogen mass conc 11 mg/dL Normal - [facility] Comment on above: Performed By: #### C BC, CMP, PAB, B12, FOL #### [address] Folateon 08-11-2018 Folate 17.5 ng/mL Normal [facility] Comment on above: Result Comment: Yelena te reference range: >5.9 ng/ml The WHO technical consultation on folate and vitamin b12 deficiencies has determined that folate concentrations less than 4 ng/ml are considered deficient. PERFORMED BY: [place] [address] PATHOLOGIST PROFESSOR OF MARKETING BIANCA GARG M.D. Performed By: #### C BC, CMP, PAB, B12, FOL #### [facility] [address] [place] [address] Prealbuminon 08-11-2018 Prealbumin mass conc 16.5 mg/dL Low 18.0-38.0 [facility] Comment on above: Performed By: #### C BC, CMP, PAB, B12, FOL #### [facility] [address] [place] [address] Vitamin B12on 08-11-2018 Cobalamin (Vitamin B12) mass conc 146 pg/mL Low 180-914 [facility] Comment on above: Performed By: #### C BC, CMP, PAB, B12, FOL #### [facility] [address] [place] [address] Urinalysison 08-10-2018 Appearance Nom (U) Clear Normal Clear [facility] Comment on above: Order Comment: Name Collection Type: Clean-Voided Midstream Performed By: #### U A #### [facility] [address] [place] [address] [place] Bilirubin,Urine Negative Normal Negative [facility] Comment on above: Order Comment: Name Collection Type: Clean-Voided Midstream Performed By: #### U A #### [facility] [address] [place] [address] [place] Color Nom (U) Yellow Normal Yellow [facility] Comment on above: Order Comment: Name Collection Type: Clean-Voided Midstream Performed By: #### U A #### [facility] [address] [place] [address] [place] Glucose Ql (U) Normal Normal Normal [facility] Comment on above: Order Comment: Name Collection Type: Clean-Voided Midstream Performed By: #### U A #### [facility] [address] [place] [address] [place] Ketones Ql (U) Negative Normal Negative [facility] Comment on above: Order Comment: Name Collection Type: Clean-Voided Midstream Performed By: #### U A #### [facility] [address] [place] [address] Leukocyte esterase Test strip Ql (U) Negative Normal Negative [facility] Comment on above: Order Comment: Name Collection Type: Clean-Voided Midstream Performed By: #### U A #### [address] Nitrite,Urine Negative Normal Negative [facility] Comment on above: Order Comment: Name Collection Type: Clean-Voided Midstream Performed By: #### U A #### [address] Occult Blood,Urine Negative Normal Negative [facility] Comment on above: Order Comment: Name Collection Type: Clean-Voided Midstream Result Comment: PERF ORMED BY: [place] [address] PATHOLOGIST PROFESSOR OF MARKETING BIANCA GARG M.D. Performed By: #### U A #### [address] pH (U) 6.5 [pH] Normal 5.0-9.0 [facility] Comment on above: Order Comment: Name Collection Type: Clean-Voided Midstream Performed By: #### U A #### [address] Protein mass conc (U) Negative Normal Negative [facility] Comment on above: Order Comment: Name Collection Type: Clean-Voided Midstream Performed By: #### U A #### [address] Specificy Serafina,Urine 1.025 Normal 1.001-1.030 [facility] Comment on above: Order Comment: Name Collection Type: Clean-Voided Midstream Performed By: #### U A #### [address] Urobilinogen,Urine Normal Normal Normal [facility] Comment on above: Order Comment: Name Collection Type: Clean-Voided Midstream Performed By: #### U A #### [address] [place] [address] [facility] Vital Signs Date Time Vital Sign Value Performing Clinician Faci lity 03-11-2024 13:36-0400 Body height 149.9 cm Marco Roth MD Work Phone: [facility] 03-11-2024 13:36-0400 Body mass index (BMI) [Ratio] 38.98 kg/m2 Marco Roth MD Work Phone: [facility] 03-11-2024 13:36-0400 Body weight 87.54 kg Marco Roth MD Work Phone: [facility] 03-11-2024 13:36-0400 Heart rate 84 /min Marco Roth MD Work Phone: [facility] 03-11-2024 13:36-0400 Respiratory rate 18 /min Marco Roth MD Work Phone: [facility] Healthcare Encounters Encounter Date Encounter Type Care Provider Facility Start: 03-11-2024 End: 03-11-2024 Bamboo flowsheet Marco Roth MD Work Phone: [facility] Start: 03-11-2024 End: 03-11-2024 Bamboo flowsheet Marco Roth MD Work Phone: [facility] Start: 03-11-2024 End: 03-13-2024 Orders Only Marco Roth MD Work Phone: [facility] External Department Unsolicited Start: 03-11-2024 End: 03-11-2024 ambulatory MARCO ROTH Not Available Start: 03-11-2024 End: 03-11-2024 Office outpatient visit 25 minutes Marco Roth MD Work Phone: [facility] Comment on above: Acquired hypothyroid ism (CMS/HCC) (Primary Dx); Class 2 obesity without serious comorbidity with body mass index (BMI) of 38.0 to 38.9 in adult, unspecified obesity type; Vitamin D deficiency; Encounter for dietary consultation; Thyroid nodule (CMS/HCC) Start: 02-27-2024 ambulatory [facility] Start: 07-13-2022 Encounter for genera l adult medical examination without abnormal findings MARY NAVARRO [facility] Start: 07-11-2022 End: 07-11-2022 ambulatory MARY NAVARRO Facility:[facility] Start: 07-09-2022 End: 07-10-2022 ambulatory MARY NAVARRO Facility:[facility] Start: 07-09-2022 End: 07-10-2022 Encounter for general adult medical examination without abnormal findings MARY NAVARRO Facility:[facility] Start: 11-10-2021 ambulatory MARY NAVARRO Facility: Start: 05-18-2020 End: 05-19-2020 ambulatory YARIEL ELISE Facility:[facility] Start: 08-10-2018 End: 08-17-2018 Evaluation and management of inpatient NON STAFF Facility:[facility] Procedures Date Procedure Procedure Detail Performing Clinician Start: 03-11-2024 Assay of free thyroxine Marco Roth MD Work Phone: Start: 03-11-2024 Thyroglobulin antibody Marco Roth MD Work Phone: Start: 05-18-2020 ANESTH LOWER LEG SURGERY FÁTIMA SALAZAR Start: 05-18-2020 DRAIN/INJ JOINT/BURS A W/O US YARIEL EBHEIM Start: 05-18-2020 NEEDLE LOCALIZATION BY XRAY YARIEL ELISE Start: 05-18-2020 REVISION OF LOWER LE G TENDON YARIEL EBJAY Plan of Treatment Date Care Activity Detail Author Start: 09-09-2024 End: 09-09-2024 Patient encounter procedure 09/09/2024 1:00 PM EDT Office Visit [facility] [address] [place] [id number] Marco Roth MD [address] [place] [address] [facility] Start: 03-11-2024 End: 03-11-2025 Thyroglobulin Antibody Thyroglobulin Antibody Lab Routine Acquired hypothyroidism (CMS/HCC) Expected: 03/11/2024 (Approximate), Expires: 03/11/2025 [facility] Work Phone: Comment on above: Expected: 03/11/2024 (Approximate), Expi res: 03/11/2025 Start: 03-11-2024 End: 03-11-2025 Thyroid peroxidase antibody Thyroid peroxidase antibody Lab Routine Acquired hypothyroidism (CMS/HCC) Expected: 03/11/2024 (Approximate), Expires: 03/11/2025 [facility] Comment on above: Expected: 03/11/2024 (Approximate), Expi res: 03/11/2025 Start: 03-11-2024 End: 03-11-2025 Thyrotropin [Units/volume] in Serum or Plasma TSH Lab Routine Acquired hypothyroidism (CMS/HCC) Expected: 03/11/2024 (Approximate), Expires: 03/11/2025 [facility] Comment on above: Expected: 03/11/2024 (Approximate), Expi res: 03/11/2025 Start: 03-11-2024 End: 03-11-2025 Thyroxine (T4) free [Mass/volume] in Serum or Plasma T4, free Lab Routine Acquired hypothyroidism (CMS/HCC) Expected: 03/11/2024 (Approximate), Expires: 03/11/2025 [facility] Comment on above: Expected: 03/11/2024 (Approximate), Expi res: 03/11/2025 Start: 03-11-2024 End: 03-11-2025 Triiodothyronine (T3) Free [Mass/volume] in Serum or Plasma T3, free Lab Routine Acquired hypothyroidism (CMS/HCC) Expected: 03/11/2024 (Approximate), Expires: 03/11/2025 [facility] Comment on above: Expected: 03/11/2024 (Approximate), Expi res: 03/11/2025 Start: 02-18-2024 Influenza vaccination Influenza Vaccine (#1) [facility] Start: 2011 Screening for malignant neoplasm of breast Mammogram [facility] Start: 09-26-2001 Screening for malignant neoplasm of cervix [facility] Start: 09-26-1992 Screening for malignant neoplasm of cervix Pap Smear [facility] Start: 1971 Screening for malignant neoplasm of colon [facility] Payers Date Payer Category Payer Managed Care HMO (unspecified) [employer] [id number] 2022-Present [address] [place] [address] HMO [id number] 2018 Self-pay 1970 Unknown [id number] 1971 Unknown [id number] 1971 Unknown [id number] 1971 Unknown [id number] 1971 Unknown [id number] 1959 Private Health Insurance [id number] 1959 Unknown [id number] 1959 Unknown [id number] Unknown [id number] Social History Date Type Detail Facility Start: 02-27-2024 Tobacco smoking status INIS Smokes t obacco daily [facility] History of tobacco use Cigarette Smoker [facility] Start: 02-27-2024 History of Social function [facility] Start: 02-27-2024 Tobacco use panel [facility] Start: 1970 Sex assigned at Not on file [facility] History of Present illness Narrative 03-11-2024 Marco Roth MD - 03/11/2024 1:30 PM EDT Note Date & Type Note Facility 03-11-2024 History of Presen t illness Narrative Abbey Swartz is a 53 y.o. female Marco Roth MD presents with chief complaint of Follow-up (thyroid) HPI: IM 02/2023 Follow-up visit 03/11/2024 for ultrasound done, only small nodule 6 mm in right lobe, no new lab done, she is still on levothyroxine 175 mcg daily. HPI: 11/2023 New patient sent from Mary Navarro CNP for uncontrolled hypothyroidism. Lab done in 07/2023, TSH 9.8. In 08/2023, TSH 8.44, free T4 0.98 (0.76-1.46), free T3 2.3 (2.18-3.19). The dose increased from 150 to 175 but she was not taking in the right way. 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 Denies family history of thyroid disease. Denies ultrasound done before. 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) History of hysterectomy HLD (hyperlipidemia) ([facility]) Hypothyroidism, unspecified ([facility]/HCC) Morbid obesity with BMI of 40.0-44.9, adult ([facility]) LAUREN (obstructive sleep apnea) Type 2 diabetes mellitus with hyperglycemia ([facility]) Past Surgical History: Procedure Laterality Date HYSTERECTOMY KNEE SURGERY Right REVIEW OF SYMPTOMS: 14 POINT OF SYSTEM REVIEWED AND NEGATIVE OBJECTIVE: Visit Vitals Pulse 84 Resp 18 Ht 4' 11 Wt 193 lb BMI 38.98 kg/m Smoking Status Every Day BSA 1.91 m Physical Exam Constitutional: Appearance: Normal appearance. She is normal weight. HENT: Head: Normocephalic and atraumatic. Right Ear: External ear normal. Nose: Nose normal. Mouth/Throat: Pharynx: Oropharynx is clear. Eyes: Extraocular Movements: Extraocular movements intact. Pupils: Pupils are equal, round, and reactive to light. Cardiovascular: Rate and Rhythm: Normal rate and regular rhythm. Pulmonary: Effort: Pulmonary effort is normal. Abdominal: General: Abdomen is flat. Palpations: Abdomen is soft. Musculoskeletal: General: Normal range of motion. Skin: General: Skin is warm. Neurological: General: No focal deficit present. Mental Status: She is alert. Psychiatric: Mood and Affect: Mood normal. Behavior: Behavior normal. ASSESSMENT AND PLAN: Assessment/Plan Diagnoses and all orders for this visit: Acquired hypothyroidism (CMS/HCC) We will check lab now and adjust the dose accordingly, she is doing 175 mcg daily Class 2 obesity without serious comorbidity with body mass index (BMI) of 38.0 to 38.9 in adult, unspecified obesity type Vitamin D deficiency Encounter for dietary consultation Thyroid nodule 6 mm in right lobe, will watch and repeat ultrasound in 1 year Follow up in about 1 year (around 03/11/2025). documented in this encounter [facility] Progress note 02-27-2024 Note Date & Type Note Facility 02-27-2024 Note Chief complaint: Rig ht knee/LE HPI: 51 y.o female well known to me after a work related injury, sustained a tibia plateau fracture underwent fixation of this and has gone on to heal. She continues with stiffness in her knee joint, has intermittent pain, worse with increased activity and better with rest. She take Mobic which also helps her. She notes pain in the evening. Review of Systems Constitutional: Negative for chills, [...] tibial plateau with routine healing, subsequent encounter Plan: F/U 6 months [facility] Evaluation note Note Date & Type Note Facility Evaluation note Diagnosis Acquired hypothyroidism (CMS/HCC)- Primary Unspecified hypothyroidism Class 2 obesity without serious comorbidity with body mass index (BMI) of 38.0 to 38.9 in adult, unspecified obesity type Vitamin D deficiency Encounter for dietary consultation Thyroid nodule (CMS/HCC) Nontoxic uninodular goiter documented in this encounter [facility] Summary Purpose Family History No Family History Records FoundNo Family History Records FoundNo Family History Records FoundNo Family History Records FoundNo Family History Records Found Advance Directives No Advanced Directives Records FoundNo Advanced Directives Records FoundNo Advanced Directives Records FoundNo Advanced Directives Records FoundNo Advanced Directives Records Found Additional Source Comments INFORMATION SOURCE (unrecogn ized section and content) DATE CREATED AUTHOR 08/22/2018 [facility] DATE CREATED AUTHOR AUTHOR'S ORGANIZ ATION 03/15/2021 [facility] DATE CREATED AUTHOR AUTHOR'S ORGANIZ ATION 07/22/2022 [facility] DATE CREATED AUTHOR AUTHOR'S ORGANIZ ATION 03/13/2024 [facility] EPIC DATE CREATED AUTHOR AUTHOR'S ORGANIZ ATION 07/11/2024 [facility] Care Teams (unrecognized sec tion and content) 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 [facility]. provides no warranty or guarantee of the accuracy or completeness of information in this document.
--- NOTE | 2024-07-19 15:23 | XR_ITS ---
[facility] [place] [id number] Patient Name: ABBEY PAPPAS MRN: [id number] date: 1970 Sex: F Assigned Patient Location: ER Current Patient Location: ED.MAIN Accession/Order Number: [id number] Exam Date: 07/19/2024 15:45 Report Date: 07/19/2024 16:34 At the request of: JUANJOSE ZAMARRIPA Procedure: XR chest 2V EXAMINATION: XR chest 2V, , 07/19/2024 12:45 PM PST INDICATION: cough HISTORY: Ordering Provider Reason for Exam: cough Technologist Note: Additional: COMPARISON: None. TECHNIQUE: Chest x-ray: Two views. FINDINGS: No pneumothorax, pleural effusion or focal airspace consolidation. Heart is normal in size. Bony thorax is unremarkable. XR/XR chest 2V IMPRESSION: No acute cardiopulmonary process. Electronically authenticated by: GUMARO SANCHEZ Date: 07/19/2024 16:34
--- NOTE | 2024-07-19 15:23 | ECG_ITS ---
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
[2024-07-19 15:45] LABS: Influenza Virus A Antigen Positive; Influenza Virus B Antigen Negative; Internal Control Within Normal Limits; SARS-CoV-2 Ag NEGATIVE (NEGATIVE)
[2024-07-19] MEDS: ACETAMINOPHEN 500 MG TABLET 1000 MG PO (16:08)
--- NOTE | 2024-07-19 16:35 | ED.GENADUL1 ---
Documented by User: Jemima Dobson 07/19/24 20:06 HPI HPI - General Adult General Chief complaint: Upper Respiratory Infection Stated complaint: Flu Symptoms Time Seen by Provider: 07/19/24 15:19 Source: patient Mode of arrival: walk-in History of Present Illness HPI narrative: 53-year-old female present here chief complaint of flulike symptoms. She states she cannot go to work today she has had a headache and fever body chills. She is generally healthy. She has had increased coughing congestion. Patient does not appear toxic she is afebrile at this time. Related Data Home Medications ?Medication ?Instructions ?Recorded ?Confirmed levothyroxine 137 mcg tablet 137 mcg PO DAILY 01/31/23 01/31/23 meloxicam 15 mg tablet 15 mg PO DAILY 01/31/23 01/31/23 Previous Rx's ?Medication ?Instructions ?Recorded dicyclomine 20 mg tablet 20 mg PO QID PRN abdominal pain 01/31/23 #10 tabs benzonatate 200 mg capsule 200 mg PO BID PRN cough #14 caps 07/19/24 Allergies Allergy/AdvReac Type Severity Reaction Status Date / Time naproxen (From Aleve) Allergy Unknown Verified 01/31/23 03:47 Opioid HPI Opioid Management Most Recent Opioid Data: No Data to Display Review of Systems ROS Narrative All Systems are negative except as noted/marked.All systems reviewed and otherwise negative PFSH PFSH Social History Smoking status: Current every day smoker Little interest or pleasure in doing things: not at all Feeling down, depressed, or hopeless: not at all Exam Narrative Exam Narrative: All Systems are negative except as noted/marked.All systems reviewed and otherwise negative Nurses note and vital signs reviewed and patient is not hypoxic. General: The patient appears well and in no apparent distress. Patient is resting comfortably on cart. Skin: Warm, dry, no pallor noted. There is no rash noted. Head: Normocephalic, atraumatic Eye: Normal conjunctiva, no drainage, EOMI. PERRL Ears, Nose, Mouth, and Throat: oral mucosa is moist. Nares patent. Mouth without vesicles. Ear canals patent. Tm's without Erythema Cardiovascular: Regular Rate and Rhythm Respiratory: Patient is in no distress, no accessory muscle use, lungs are clear to auscultation, no wheezing, rales or rhonchi Back: non-tender, no CVA tenderness bilaterally to percussion. GI: Normal bowel sounds, no tenderness to palpation, no masses appreciated. No rebound, guarding, or rigidity noted. Musculoskeletal: The patient has no evidence of calf tenderness, no pitting edema, symmetrical pulses noted bilaterally Neurological: A&O x4, normal speech Psychiatric: Cooperative Constitutional Vital Signs, click to edit/add: Last Vital Signs Temp 98.4 F 07/19/24 15:17 Pulse 99 H 07/19/24 16:46 Resp 18 07/19/24 16:46 BP 130/55 07/19/24 16:46 Pulse Ox 97 07/19/24 16:46 O2 Del Method Room Air 07/19/24 15:17 Course Vital Signs Vital signs: Vital Signs Temperature 98.4 F 07/19/24 15:17 Pulse Rate 100 H 07/19/24 15:17 Respiratory Rate 20 07/19/24 15:17 Blood Pressure 159/62 H 07/19/24 15:17 Pulse Oximetry 93 L 07/19/24 15:17 Oxygen Delivery Method Room Air 07/19/24 15:17 Temperature 98.4 F 07/19/24 15:17 Pulse Rate 99 H 07/19/24 16:46 Respiratory Rate 18 07/19/24 16:46 Blood Pressure 130/55 07/19/24 16:46 Pulse Oximetry 97 07/19/24 16:46 Oxygen Delivery Method Room Air 07/19/24 15:17 Medical Decision Making MDM Narrative Medical decision making narrative: For evaluation of influenza. Chest x-ray showed no acute abnormalities she is influenza A. Patient be discharged home with a prescription for Tessalon Perles and a work note per her request. She request to be off work today through Monday. Patient looks well at discharge agrees with plan of care. Differential Diagnosis Differential Diagnosis: , Flu, covid Medical Records Medical records reviewed: Yes I reviewed the patient's medical records Lab Data Lab results reviewed: Yes I reviewed the patient's lab results Labs: Lab Results 07/19/24 Range/Units 15:19 Influenza Type A Ag Positive A Influenza Type B Ag Negative SARS-CoV-2 Ag (CV2AG) Negative (NEGATIVE) Imaging Data Chest x-ray: Radiologist's impression: ITS Impressions Chest X-Ray 07/19/24 15:23 IMPRESSION: No acute cardiopulmonary process. Electronically authenticated by: GUMARO SANCHEZ Date: 07/19/2024 16:34 Discharge Plan Discharge Chief Complaint: Upper Respiratory Infection Clinical Impression: Influenza Patient Disposition: Home, Self-Care Time of Disposition Decision: 16:34 Condition: Good Mode of Transportation: Private Vehicle Prescriptions / Home Meds: New benzonatate 200 mg capsule 200 mg PO BID PRN (Reason: cough) Qty: 14 0RF No Action levothyroxine 137 mcg tablet 137 mcg PO DAILY meloxicam 15 mg tablet 15 mg PO DAILY dicyclomine 20 mg tablet 20 mg PO QID PRN (Reason: abdominal pain) Qty: 10 0RF Print Language: [place] Instructions: Influenza (ED) Referrals: YING NAVARRO [Primary Care Provider] - 1 week Discharge Date/Time: 07/19/24 16:46 Documented by User: Royal Pineda MD 07/19/24 16:52 HPI HPI - General Adult General Chief complaint: Upper Respiratory Infection Stated complaint: Flu Symptoms Time Seen by Provider: 07/19/24 15:19 Related Data Home Medications ?Medication ?Instructions ?Recorded ?Confirmed levothyroxine 137 mcg tablet 137 mcg PO DAILY 01/31/23 01/31/23 meloxicam 15 mg tablet 15 mg PO DAILY 01/31/23 01/31/23 Previous Rx's ?Medication ?Instructions ?Recorded dicyclomine 20 mg tablet 20 mg PO QID PRN abdominal pain 01/31/23 #10 tabs benzonatate 200 mg capsule 200 mg PO BID PRN cough #14 caps 07/19/24 Allergies Allergy/AdvReac Type Severity Reaction Status Date / Time naproxen (From Aleve) Allergy Unknown Verified 01/31/23 03:47 Opioid HPI Opioid Management Most Recent Opioid Data: No Data to Display PFSH PFSH Social History Smoking status: Current every day smoker Little interest or pleasure in doing things: not at all Feeling down, depressed, or hopeless: not at all Exam Constitutional Vital Signs, click to edit/add: Last Vital Signs Temp 98.4 F 07/19/24 15:17 Pulse 99 H 07/19/24 16:46 Resp 18 07/19/24 16:46 BP 130/55 07/19/24 16:46 Pulse Ox 97 07/19/24 16:46 O2 Del Method Room Air 07/19/24 15:17 Course Vital Signs Vital signs: Vital Signs Temperature 98.4 F 07/19/24 15:17 Pulse Rate 100 H 07/19/24 15:17 Respiratory Rate 20 07/19/24 15:17 Blood Pressure 159/62 H 07/19/24 15:17 Pulse Oximetry 93 L 07/19/24 15:17 Oxygen Delivery Method Room Air 07/19/24 15:17 Temperature 98.4 F 07/19/24 15:17 Pulse Rate 99 H 07/19/24 16:46 Respiratory Rate 18 07/19/24 16:46 Blood Pressure 130/55 07/19/24 16:46 Pulse Oximetry 97 07/19/24 16:46 Oxygen Delivery Method Room Air 07/19/24 15:17 Medical Decision Making MDM Narrative Medical decision making narrative: For evaluation of influenza. Chest x-ray showed no acute abnormalities she is influenza A. Patient be discharged home with a prescription for Tessalon Perles and a work note per her request. She request to be off work today through Monday. Patient looks well at discharge agrees with plan of care. I, Dr Pineda, have reviewed the above progress note and course of action in the ER; agree with the above. I have gone over history and physical, and discussed disposition and treatment plan with the patient. Lab Data Labs: Lab Results 07/19/24 Range/Units 15:19 Influenza Type A Ag Positive A Influenza Type B Ag Negative SARS-CoV-2 Ag (CV2AG) Negative (NEGATIVE) Imaging Data Chest x-ray: Radiologist's impression: ITS Impressions Chest X-Ray 07/19/24 15:23 IMPRESSION: No acute cardiopulmonary process. Electronically authenticated by: GUMARO SANCHEZ Date: 07/19/2024 16:34 ECG Data Attestation: I personally reviewed and interpreted this ECG as follows: (EKG interpretation. Normal sinus rhythm at 89 beats a minute. Left axis deviation. No acute ST elevation, no acute ectopy. QTc 387) Discharge Plan Discharge Chief Complaint: Upper Respiratory Infection Clinical Impression: Influenza Patient Disposition: Home, Self-Care Time of Disposition Decision: 16:34 Condition: Good Mode of Transportation: Private Vehicle Prescriptions / Home Meds: New benzonatate 200 mg capsule 200 mg PO BID PRN (Reason: cough) Qty: 14 0RF No Action levothyroxine 137 mcg tablet 137 mcg PO DAILY meloxicam 15 mg tablet 15 mg PO DAILY dicyclomine 20 mg tablet 20 mg PO QID PRN (Reason: abdominal pain) Qty: 10 0RF Print Language: [place] Instructions: Influenza (ED) Referrals: YING NAVARRO [Primary Care Provider] - 1 week Discharge Date/Time: 07/19/24 16:46
[2024-07-19 16:46] VITALS: BP 130/55; PULSE 99; O2SAT 97
== END 2024-07-19 16:46 | disposition home or self-care (01) ==
PROVIDERS: Physician Assistant; Emergency Provider Emergency Medicine; PCP Nurse Practitioner Family
DX: J10.1 Influenza due to other identified influenza virus with other respiratory manifestations (principal); R51.9 Headache, unspecified; F17.200 Nicotine dependence, unspecified, uncomplicated
CPT/HCPCS: 71046; 87804; 87811; 93005; 99285

== ENCOUNTER 2024-11-04 09:21 | Outpatient (OUT) | payer OTHER, SELFPAY ==
--- OUTSIDE RECORDS SUMMARY | 2024-11-04 09:36 | XMS_ITS | CCD ---
Author Organization [place] [facility] TREATMENT MANAGER [facility] Care Team Providers Care Lathe Sander Name Role Phone NON STAFF Primary Care Unavailable Erica Preston Consulting Unavailable Luis, Sameh Admitting Unavailable Rimary anne, Sameh Attending Unavailable EBRAHEIM, YARIEL Admitting Unavailable EBRAHEIM, YARIEL Attending Unavailable UNKNOWN, PHYSICIAN Referring Unavailable UNKNOWN, PHYSICIAN Primary Care Unavailable FÁTIMA SALAZAR Surgeon Unavailable PA Procedure Practitioner Unavailab le PA Procedure Practitioner Unavailab le YARIEL ELISE Surgeon [...] Facility (1 source) Naproxen Drug Allergy 08-10-2018 [facility] Repository (3 sources) Naproxen Drug Allergy 03-27-2015 [facility] Repository (1 source) Naproxen Drug Allergy 05-18-2020 [facility] Repository (4 sources) Naproxen Drug Allergy 05-27-2022 [facility] (1 source) Naproxen; Translations: [NAPROXEN SODIUM] Drug Allergy 05-27-2022 [facility] Repository Medications Current Medications Medication Drug Class(es) [...] Test Name Value Interpretation Reference Range Facility Orders Onlyon 10-28-2024 Orders Only [id number] Abbey Swartz 1970 F Date Provider Department Center 10/28/2024 [id number] ORTIZ MP ORTHO ELISABETHO Family History Family history unknown: Yes Family Status - Relation Status Age at Mother Father Normal [facility] Refillon 10-25-2024 Refill [id number] Abbey Swartz 1970 F Date Provider Department Center 10/25/2024 Perla-SKIE, CONSTANZA MP ORTHO MPORTHO Family History Family history unknown: Yes Family Status - Relation Status Age at Mother Father Reason for Visit and Comments: Med Refill [[id number]] [facility] 36on 07-10-2024 36 Medication refused due to [...] Type Provider Dept 02/27/24 Follow-Up BR[facility] [place] [facility] Showing recent visits within past 270 [...] 05/26/2024 7:38 AM and 07/10/2024 7:38 AM [facility] Refillon 07-10-2024 Refill [id number] Abbey Swartz 1970 F Date Provider Department Center 07/10/2024 Virgilio-DIXIE SOOD MP Family History Family history unknown: Yes Family Status - Relation Status Age at Mother Father Reason for Visit and Comments: Med Refill [[id number]] [facility] No Panel Informationon 03-13 Interpretation and review of laboratory results Abnormal [facility] Performed at: 01 - [address] [id number] Farm Mechanic Apprentice: Gold Foster PhD, Phone: [phone] Specimen Comment: A duplicate report has been generated due to demographic updates. [facility] T3, freeon 03-13-2024 Free T3 [Mass/Vol] 2.5 pg/mL 2.0 - 4.4 pg/mL [facility] T4, freeon 03-13-2024 Free T4 [Mass/Vol] 1.59 ng/dL 0.82 - 1. 77 ng/dL [facility] TSHon 03-13-2024 TSH Qn 1.220 m[IU]/L [facility] Thyroglobulin Antibodyon Thyroglobulin Ab Qn 6.5 [IU]/mL High [facility] Comment on above: Thyroglobulin Antibo dy measured by [employer] It should be noted that the presence of thyroglobulin antibodies may not be pathogenic nor diagnostic, especially at very low levels. The assay workforce manager has found that four percent of individuals without evidence of thyroid disease or autoimmunity will have positive TgAb levels up to 4 IU/mL. Thyroid peroxidase antibodyo n 03-13-2024 TPO Ab Qn 538 [IU]/mL High [facility] 36on 03-04-2024 36 Please adjust paperwork [facility] 36on 03-01-2024 36 Patient called in regard to [place] paperwork Her paper work states 8 hr shifts. Her employer will not accept due to patient working 12hour shifts. Patient is requesting paperwork to be corrected to 8-12hr shifts and re faxed . Please call patient when complete [phone] Normal [facility] Follow-Upon 02-27-2024 Follow-Up [id number] Abbey Swartz 1970 F Date Provider Department Center 02/27/2024 DIXIE WINSTON MP ORTHO MPORTHO Family History Family history unknown: Yes Family Status - Relation Status Age at Mother Father Level of Service:87688 PA OFFICE/OUTPATIENT ESTABLISHED SF MDM 10 MIN Reason for Visit and Comments: Pain [136] Normal [facility] Refillon 01-13-2024 Refill [id number] Abbey Swartz Kurtis 1970 F Date Provider Department Center 01/13/2024 DIXIE WINSTON MPRTDARREN Family History Family history unknown: Yes Family Status - Relation Status Age at Mother Father Reason for Visit and Comments: Med Refill [[id number]] Normal [facility] 36on 12-15-2023 36 Approving, but needs appt for additional refills. Normal [facility] INSULINon 07-11-2022 Insulin 27.8 uIU/mL Critically high 2.6-24.9 [facility] Comment on above: Performed By: #### I NSULIN #### [facility] [address] [place] [address] Dr. Heather Del Toro OCC BLD IMMUNO SCREENon 06-20 OCCULT BLOOD Negative Normal NEGATIVE [facility] Comment on above: Performed By: #### O BSCRN #### [facility] [address] [place] [address] Dr. Heather Del Toro CBC AUTO DIFFon 07-09-2022 BASO # 0.0 103/ul Normal 0.0-0.1 [facility] Comment on above: Performed By: #### C BC #### [facility] [address] [place] [address] Dr. Heather Del Toro Basophils/100 WBC (Bld) 0.2 % Normal 0.2-2.0 [facility] Comment on above: Performed By: #### C BC #### [facility] [address] [place] [address] Dr. Heather Del Toro EO # 0.1 103/ul Normal 0.0-0.7 [facility] Comment on above: Performed By: #### C BC #### [facility] [address] [place] [address] Dr. Heather Del Toro Eosinophils/100 WBC (Bld) 1.0 % Normal 0.9-7.0 [facility] Comment on above: Performed By: #### C BC #### [facility] [address] [place] [address] Dr. Heather Del Toro Erythrocyte distribution width (RBC) [Ratio] 14.9 % Normal 11.0-15.0 [facility] Comment on above: Performed By: #### C BC #### [facility] [address] [place] [address] Dr. Heather Del Toro Hematocrit (Bld) [Volume fraction] 36.6 % Normal 36.0-48.0 [facility] Comment on above: Performed By: #### C BC #### [facility] [address] [place] [address] Dr. Heather Del Toro Hemoglobin (Bld) [Mass/Vol] 12.5 g/dL Normal 12.0-16.0 [facility] Comment on above: Performed By: #### C BC #### [facility] [address] [place] [address] Dr. Heather Del Toro IG # 0.01 10e3/ul Normal 0.00-0.03 [facility] Comment on above: Performed By: #### C BC #### [facility] [address] [place] [address] Dr. Heather Del Toro IG % 0.1 % Normal 0.0-0.5 [facility] Comment on above: Performed By: #### C BC #### [facility] [address] [place] [address] Dr. Heather Del Toro LYMPH # 3.2 103/ul Normal 1.2-3.8 [facility] Comment on above: Performed By: #### C BC #### [facility] [address] [place] [address] Dr. Heather Del Toro Lymphocytes/100 WBC (Bld) 39.0 % Normal 20.5-60.0 [facility] Comment on above: Performed By: #### C BC #### [facility] [address] [place] [address] Dr. Heather Del Toro MANUAL DIFF REQ NO Normal [facility] Comment on above: Performed By: #### C BC #### [facility] [address] [place] [address] Dr. Heather Del Toro MCH (RBC) [Entitic mass] 27.2 pg Normal 26.7-34.0 [facility] Comment on above: Performed By: #### C BC #### [facility] [address] [place] [address] Dr. Heather Del Toro MCHC (RBC) [Mass/Vol] 34.2 g/dL Normal 29.9-35.2 [facility] Comment on above: Performed By: #### C BC #### [facility] [address] [place] [address] Dr. Heather Del Toro MCV (RBC) [Entitic vol] 79.7 fL Critically low 81.0-99.0 [facility] Comment on above: Performed By: #### C BC #### [facility] [address] [place] [address] Dr. Heather Del Toro MONO # 0.6 103/ul Normal 0.3-0.8 [facility] Comment on above: Performed By: #### C BC #### [facility] [address] [place] [address] Dr. Heather Del Toro Monocytes/100 WBC (Bld) 6.7 % Normal 1.7-12.0 [facility] Comment on above: Performed By: #### C BC #### [facility] [address] [place] [address] Dr. Heather Del Toro NEUT # 4.4 103/ul Normal 1.4-6.5 [facility] Comment on above: Performed By: #### C BC #### [facility] [address] [place] [address] Dr. Heather Del Toro Neutrophils/100 WBC (Bld) 53.0 % Normal 43.0-75.0 [facility] Comment on above: Performed By: #### C BC #### [facility] [address] [place] [address] Dr. Heather Del Toro Platelet mean volume (Bld) [Entitic vol] 11.2 fL Normal 9.5-13.5 [facility] Comment on above: Performed By: #### C BC #### [facility] [address] [place] [address] Dr. Heather Del Toro PLT 168 103/ul Normal 150-450 [facility] Comment on above: Performed By: #### C BC #### [facility] [address] [place] [address] Dr. Heather Del Toro RBC 4.59 106/ul Normal 4.20-5.40 [facility] Comment on above: Performed By: #### C BC #### [facility] [address] [address] [address] Heather Del Toro WBC 8.3 103/ul Normal 4.0-11.0 [facility] Comment on above: Performed By: #### C BC #### [facility] [address] [place] [address] Dr. Heather Del Toro FREE THYROXINE INDEX T7on FTI 3.30 Normal 1.30-4.50 [facility] Comment on above: Performed By: #### L IPID, CMP, T7, TSH #### [facility] [address] [place] [address] Dr. Heather Del Toro T3U 32.0 % Normal 30.0-39.0 [facility] Comment on above: Performed By: #### L IPID, CMP, T7, TSH #### [facility] [address] [place] [address] Dr. Heather Del Toro T4 [Mass/Vol] 10.30 ug/dL Normal 4.80-13.90 [facility] Comment on above: Performed By: #### L IPID, CMP, T7, TSH #### [facility] [address] [place] [address] Dr. Heather Del Toro GLYCOHEMOGLOBIN A1Con 2022 ADA RECOMMENDATION SEE BELOW Normal [facility] Comment on above: Result Comment: ADA RECOMMENDED LIMIT 4.0 - 6.0 ADA THERAPEUTIC TARGET < 7.0 ACTION SUGGESTED > 7.0 Performed By: #### A 1C #### [facility] [address] [place] [address] Dr. Heather Del Toro Glucose [Mass/Vol] 146 mg/dL Normal [facility] Comment on above: Performed By: #### A 1C #### [facility] [address] [address] [address] Heather Del Toro HbA1c (Bld) [Mass fraction] 6.7 % Critically high 4.5-6.2 [facility] Comment on above: Performed By: #### A 1C #### [facility] [address] [address] [address] Heather Del Toro IRONon 07-09-2022 Iron [Mass/Vol] 26.0 ug/dL Critically low 50.0-170.0 [facility] Comment on above: Performed By: #### I YAKOV #### [facility] [address] [address] [address] Heather Del Toro LIPID PROFILEon 07-09-2022 CHOL-HDL RATIO NORM SEE BELOW Normal [facility] Comment on above: Result Comment: 3.3 - 4.4 LOW RISK 4.4 - 7.1 AVERAGE RISK 7.1 - 11.0 MODERATE RISK >11.0 HIGH RISK Performed By: #### L IPID, CMP, T7, TSH #### [facility] [address] [address] [address] Heather Del Toro Cholesterol [Mass/Vol] 212 mg/dL Critically high <=200 [facility] Comment on above: Performed By: #### L IPID, CMP, T7, TSH #### [facility] [address] [address] [address] Heather Del Toro Cholesterol in HDL [Mass/Vol] 39 mg/dL Critically low 40-60 [facility] Comment on above: Performed By: #### L IPID, CMP, T7, TSH #### [facility] [address] [address] [address] Heather Del Toro Cholesterol in LDL [Mass/Vol] 150.6 mg/dL Normal [facility] Comment on above: Performed By: #### L IPID, CMP, T7, TSH #### [facility] [address] [address] [address] Heather Del Toro Cholesterol.total/Ch olesterol in HDL [Mass ratio] 5.4 {ratio} Normal [facility] Comment on above: Performed By: #### L IPID, CMP, T7, TSH #### [facility] [address] [address] [address] Heather Del Toro HDL NORMAL > or = 60 mg/dl - LO W CARDIOVASCULAR RISK <40 mg/dl - HIGH CARDIOVASCULAR RISK Normal [facility] Comment on above: Performed By: #### L IPID, CMP, T7, TSH #### [facility] [address] [address] [address] Heather Del Toro LDL CALC NORMAL SEE BELOW Normal [facility] Comment on above: Result Comment: <100 mg/dl OPTIMAL 100 - 129 mg/dl NEAR OR ABOVE OPTIMAL 130 - 159 mg/dl BORDERLINE HIGH 160 - 189 mg/dl HIGH >190 mg/dl VERY HIGH Performed By: #### L IPID, CMP, T7, TSH #### [facility] [address] [address] [address] Heather Del Toro Triglyceride [Mass/Vol] 112 mg/dL Normal <=150 [facility] Comment on above: Performed By: #### L IPID, CMP, T7, TSH #### [facility] [address] [address] [address] Heather Del Toro VLDL CALC 22.4 mg/dL Normal [facility] Comment on above: Performed By: #### L IPID, CMP, T7, TSH #### [facility] [address] [address] [address] Heather Del Toro PROF 14(COMP METB)on 023 Albumin [Mass/Vol] 3.9 g/dL Normal 3.4-5.0 [facility] Comment on above: Performed By: #### L IPID, CMP, T7, TSH #### [facility] [address] [address] [address] Heather Del Toro Albumin/Globulin [Mass ratio] 1.2 {ratio} Normal [facility] Comment on above: Performed By: #### L IPID, CMP, T7, TSH #### [facility] [address] [address] [address] Heather Del Toro ALP [Catalytic activity/Vol] 132 U/L Critically high 46-116 [facility] Comment on above: Performed By: #### L IPID, CMP, T7, TSH #### [facility] [address] [address] [address] Heather Del Toro ALT [Catalytic activity/Vol] 93 U/L Critically high 14-59 [facility] Comment on above: Performed By: #### L IPID, CMP, T7, TSH #### [facility] [address] [address] [address] Heather Del Toro Anion gap [Moles/Vol] 11.5 mmol/L Normal [facility] Comment on above: Performed By: #### L IPID, CMP, T7, TSH #### [facility] [address] [address] [address] Heather Del Toro AST [Catalytic activity/Vol] 43 U/L Critically high 15-37 [facility] Comment on above: Performed By: #### L IPID, CMP, T7, TSH #### [facility] [address] [place] [address] Dr. Heather Del Toro Bilirubin [Mass/Vol] 0.3 mg/dL Normal 0.2-1.0 [facility] Comment on above: Performed By: #### L IPID, CMP, T7, TSH #### [facility] [address] [place] [address] Dr. Heather Del Toro Calcium [Mass/Vol] 9.1 mg/dL Normal 8.5-10.1 [facility] Comment on above: Performed By: #### L IPID, CMP, T7, TSH #### [facility] [address] [address] [address] Heather Del Toro Chloride [Moles/Vol] 104 mmol/L Normal 98-107 [facility] Comment on above: Performed By: #### L IPID, CMP, T7, TSH #### [facility] [address] [place] [address] Dr. Heather Del Toro CO2 [Moles/Vol] 28.9 mmol/L Normal 21.0-32.0 [facility] Comment on above: Performed By: #### L IPID, CMP, T7, TSH #### [facility] [address] [address] [address] Heather Del Toro Creatinine [Mass/Vol] 0.73 mg/dL Normal 0.55-1.02 [facility] Comment on above: Performed By: #### L IPID, CMP, T7, TSH #### [facility] [address] [address] [address] Heather Del Toro EGFR-AF MARSHALLESE >60 Normal >=60 [facility] Comment on above: Performed By: #### L IPID, CMP, T7, TSH #### [facility] [address] [address] [address] Heather Del Toro EGFR-NON AF MARSHALLESE >60 Normal >=60 [facility] Comment on above: Performed By: #### L IPID, CMP, T7, TSH #### [facility] [address] [place] [address] Dr. Heather Del Toro Globulin (S) [Mass/Vol] 3.3 g/dL Normal [facility] Comment on above: Performed By: #### L IPID, CMP, T7, TSH #### [facility] [address] [address] [address] Heather Del Toro Glucose [Mass/Vol] 106 mg/dL Normal 74-106 [facility] Comment on above: Performed By: #### L IPID, CMP, T7, TSH #### [facility] [address] [address] [address] Heather Del Toro Potassium [Moles/Vol] 4.4 mmol/L Normal 3.5-5.1 [facility] Comment on above: Performed By: #### L IPID, CMP, T7, TSH #### [facility] [address] [address] [address] Heather Del Toro Protein [Mass/Vol] 7.2 g/dL Normal 6.4-8.2 [facility] Comment on above: Performed By: #### L IPID, CMP, T7, TSH #### [facility] [address] [place] [address] Dr. Heather Del Toro Sodium [Moles/Vol] 140 mmol/L Normal 136-145 [facility] Comment on above: Performed By: #### L IPID, CMP, T7, TSH #### [facility] [address] [address] [address] Heather Del Toro Urea nitrogen [Mass/Vol] 10.0 mg/dL Normal 7.0-18.0 [facility] Comment on above: Performed By: #### L IPID, CMP, T7, TSH #### [facility] [address] [address] [address] Heather Del Toro Urea nitrogen/Creatinine [Mass ratio] 13.7 mg/mg Normal [facility] Comment on above: Performed By: #### L IPID, CMP, T7, TSH #### [facility] [address] [address] [address] Heather Del Toro TSHon 07-09-2022 TSH 4.912 uIU/mL Critically high 0.358-3.740 [facility] Comment on above: Performed By: #### L IPID, CMP, T7, TSH #### [facility] [address] [place] [address] Dr. Heather Del Toro ANKLE RIGHT 2 [facility] 05-18-20 20 ANKLE RIGHT 2 S [facility] Department of Radiology [address] [place] [id number] Patient Name: ABBEY SWARTZ : 1970 Sex: F Age: Race: White Pt. Location: OUTP Patient Status: O Ordered Date: 05/18/2020 12:00:00 PM Completed Date: 05/18/2020 12:53 PM Requesting Provider: YARIEL ELISE Attending Provider: YAIREL ELISE Report Copy To: Signs & Symptoms: RIGHT PERCUTANEOUS ACHILLES TENDON LENGTHENING WITH RIGHT ANKLE JOINT CORTICOSTEROID INJECTION History: Comments: RIGHT PERCUTANEOUS ACHILLES TENDON LENGTHENING WITH RIGHT ANKLE JOINT CORTICOSTEROID INJECTION Exam: ANKLE RIGHT 2 S ANKLE RIGHT 2 S 05/18/2020 12:53 PM CLINICAL INDICATIONS: RIGHT PERCUTANEOUS [...] IMPRESSION: Electronically signed: Shivam Church. Transcribed by: [email or web address], User Resident: Electronically Signed by: SHIVAM CHURCH @ 05/18/2020 01:33 PM Normal [facility] Comment on above: Order Comment: RIGHT PERCUTANEOUS ACHILLES TENDON LENGTHENING WITH RIGHT ANKLE JOINT CORTICOSTEROID INJECTION Operative Reporton 0 Operative Report MR#: [id number] S [facility] Pt. Name: Abbey Swartz Room #: 0C [...] Villarreal MD Date Trans: 05/18/2020 06:45 P/angie [id number] Normal [facility] POC GLUCOSE LABon 05-18-2020 Glucose [Mass/Vol] 101 mg/dL High 70-100 [facility] Comment on above: Performed By: #### 8 [id number] #### [facility] [address] Glucose [Mass/Vol] 106 mg/dL High 70-100 [facility] Comment on above: Performed By: #### 8 [id number] ####[facility] [address] *MRSA/MSSA DNA NASALon 05-16 *MRSA/MSSA DNA NASAL Clinical Report: (D ) Specimen: NASAL SWAB Collected: 05/16/2020 10:34 Status: Final Last Updated: 05/17/2020 09:45 MSSA DNA (Final) Negative MRSA DNA (Final) Negative Normal [facility] Comment on above: Performed By: #### 3 1595 #### [facility] [address] *SARS-CoV-2 COVID-19on 05-16 SARS-CoV-2 (COVID-19) RNA NEVILLE+probe Ql (Unsp spec) Not detected Normal Not Detected [facility] Comment on above: Order Comment: The A ptima SARS-CoV-2 assay is a nucleic acid amplification test intended for the qualitative detection of RNA from SARS-CoV-2 isolated and purified from nasopharyngeal ([employer]ELT HOUSE CENTRIFUGAL OPERATOR),oropharyngeal (OP), nasal swab, sputum, and bronchoalveolar lavage (BAL) specimens from patients with signs and symptoms of infection who are suspected of COVID-19. Results are for the identification of SARS-CoV-2 RNA. The SARS-CoV-2 RNA is generally detectable during the acute phase of infection. The [employer]ptima SARS-CoV-2 Assay on the [employer] system is intended for use by laboratory personnel specifically instructed and trained in the operation of the [employer] system. The Aptima SARS-CoV-2 assay is [...] information. Performed By: #### 3 [id number] #### [facility] [address] APTTon 05-16-2020 aPTT Coag (Bld) [Time] 32.1 s Normal 25.0-35.0 [facility] Comment on above: Result Comment: ALL [...] THIS PURPOSE. Performed By: #### 5 [id number], [id number] #### [facility] [address] BASIC METABOLIC PANELon 11- Calcium [Mass/Vol] 9.5 mg/dL Normal 8.6-10.3 [facility] Comment on above: Performed By: #### 0 0071 #### [facility] [address] Chloride [Moles/Vol] 104 mmol/L Normal 98-107 [facility] Comment on above: Performed By: #### 0 0071 #### [facility] [address] [place] [address], [facility] CO2 [Moles/Vol] 28 mmol/L Normal 21-31 [facility] Comment on above: Performed By: #### 0 0071 #### [facility] [address] [place] [address], [place] Creatinine [Mass/Vol] 0.79 mg/dL Normal 0.60-1.20 [facility] Comment on above: Performed By: #### 0 0071 #### [facility] [address] [place] [address], [place] GFR/1.73 sq M.predicted among blacks MDRD (S/P/Bld) [Vol rate/Area] mL/min/{1.73_m2} Normal >60 [facility] Comment on above: Performed By: #### 0 0071 #### [facility] [address] [place] [address], [place] GFR/1.73 sq M.predicted among non-blacks MDRD (S/P/Bld) [Vol rate/Area] mL/min/{1.73_m2} Normal >60 [facility] Comment on above: Performed By: #### 0 0071 #### [facility] [address] [place] [address], [place] Glucose [Mass/Vol] 116 mg/dL High 70-100 [facility] Comment on above: Performed By: #### 0 0071 #### [facility] [address] [place] [address], [place] Potassium [Moles/Vol] 4.2 mmol/L Normal 3.5-5.1 [facility] Comment on above: Performed By: #### 0 0071 #### [facility] [address] [place] [address], [place] Sodium [Moles/Vol] 139 mmol/L Normal 136-145 [facility] Comment on above: Performed By: #### 0 0071 #### [facility] [address] [place] [address], [facility] Urea nitrogen [Mass/Vol] 8 mg/dL Normal 7-25 [facility] Comment on above: Performed By: #### 0 0071 #### [facility] [address] [facility] [place] [address], [facility] CBC W/DIFFon 05-16-2020 ABS IMM GRANS 0.0 10*3/uL Normal 0.0-0.2 [facility] Comment on above: Performed By: #### 5 102 #### [facility] [address] [place] [address], [facility] ABS NEUTROPHILS 5.7 10*3/uL Normal 1.6-7.6 [facility] Comment on above: Performed By: #### 5 102 #### [facility] [address] [place] [address], [facility] Basophils (Bld) [#/Vol] 0.0 10*3/uL Normal 0.0-0.2 [facility] [facility] Comment on above: Performed By: #### 5 102 #### [facility] [address] [place] [address], [facility] Basophils/100 WBC (Bld) 0.3 % Normal 0.0-1.0 [facility] Comment on above: Performed By: #### 5 3 #### [facility] [address] [facility] [place] [address], [facility] Eosinophils (Bld) [#/Vol] 0.1 10*3/uL Normal 0.0-0.5 [facility] Comment on above: Performed By: #### 5 102 #### [facility] [address] [place] [address], [facility] Eosinophils/100 WBC (Bld) 1.4 % Normal 0.0-6.0 [facility] Comment on above: Performed By: #### 5 0103 #### [facility] [address] [facility]. [address] Erythrocyte distribution width (RBC) [Ratio] 16.6 % High 11.5-15.0 [facility] Comment on above: Performed By: #### 102 #### [facility] [address] [facility] [place] [place] [address], [facility] Hematocrit (Bld) [Volume fraction] 41.8 % Normal 36.0-45.0 [facility] Comment on above: Performed By: #### 102 #### [facility] [address] [facility]. [address] Hemoglobin (Bld) [Mass/Vol] 12.4 g/dL Normal 12.0-15.0 [facility] Comment on above: Performed By: #### 102 #### [facility] [address] [facility]. [address] IMMATURE GRANS 0.3 % Normal 0.0-1.0 [facility] Comment on above: Performed By: #### 102 #### [facility] [address] Lymphocytes (Bld) [#/Vol] 2.8 10*3/uL Normal 1.2-4.0 [facility] Comment on above: Performed By: #### 3 #### [facility] [address] [facility]. [address] Lymphocytes/100 WBC (Bld) 29.8 % Normal 20.0-45.0 [facility] Comment on above: Performed By: #### 3 #### [facility] [address] [place] [address], [facility] MCH (RBC) [Entitic mass] 25.2 pg Low 27.0-33.0 [facility] Comment on above: Performed By: #### 102 #### [facility] [address] [place] [address], [facility] MCHC (RBC) [Mass/Vol] 29.7 g/dL Low 32.0-35.0 [facility] Comment on above: Performed By: #### 3 #### [facility] [address] [place] [address], [facility] MCV (RBC) [Entitic vol] 85.0 fL Normal 82.0-98.0 [facility] Comment on above: Performed By: #### 102 #### [facility] [address] [facility] [place] [address], [facility] Monocytes (Bld) [#/Vol] 0.7 10*3/uL Normal 0.1-1.0 [facility] Comment on above: Performed By: #### 102 #### [facility] [address] [facility] [address], [facility] MONOS 7.2 % Normal 5.0-12.0 [facility] Comment on above: Performed By: #### 102 #### [facility] [address] [facility] [place] [address], [facility] Neutrophils/100 WBC (Bld) 61.0 % Normal 40.0-72.0 [facility] Comment on above: Performed By: #### 3 #### [facility] [address] [facility] [place] [address], [facility] Nucleated RBC/100 WBC (Bld) [Ratio] 0 % Normal 0-0 [facility] Comment on above: Performed By: #### 3 #### [facility] [address] [facility] [place] [address], [facility] PLAT CNT 210 10*3/uL Normal 150-400 [facility] Comment on above: Performed By: #### 102 #### [facility] [address] RBC (Bld) [#/Vol] 4.92 10*6/uL Normal 3.80-5.00 [facility] Comment on above: Performed By: #### 5 0103 #### [facility] [address] [place] [address], [facility] WBC (Bld) [#/Vol] 9.29 10*3/uL Normal 4.00-10.60 [facility] Comment on above: Performed By: #### 5 0103 #### [facility] [address] [facility] [address] PROTHROMBIN TIMEon 0 INR Coag (PPP) [Relative time] 0.82 {INR} Low 0.91-1.16 [facility] Comment on above: Result Comment: ACCC P [...] CHEST 1995;108:[id number]. Performed By: #### 5 6101, [id number] #### [facility] [address] [place] [address], [facility] PT Coag (PPP) [Time] 11.3 s Low 12.3-14.8 [facility] Comment on above: Result Comment: ALL RESULTS MUST BE INTERPRETED WITH RESPECT TO BLOOD DRAWING ARTIFACT OR DILUTION ERROR OF ANTICOAGULANT AT THE TIME OF SAMPLING. 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 COMPARISON: None IMPRESSION: Unremarkable orbits. No radiopaque foreign body identified. Clear paranasal sinuses. Electronically signed: Sanjuana Keith. Transcribed by: [email or web address], User Resident: Electronically Signed by: SANJUANA KEITH @ 04/12/2020 08:45 AM Normal [facility] MRI ANKLE WO CONTRAST RIGHTo n 04-12-2020 MRI ANKLE WO CONTRAST RIGHT [facility] Department of Radiology [address] [place] [id number] Patient Name: ABBEY SWARTZ : 1970 Sex: F Age: Race: White Pt. 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 [facility]. [facility] approved for CPT 02335 Approval Scanned into [place] Claim# [id number] Valid 04/07/20-04/21/20 *SLA Comments: Please Evaluate Exam: [...] joint. Electronically signed: Sanjuana Keith. Transcribed by: [email or web address], User Resident: Electronically Signed by: SANJUANA KEITH @ 04/12/2020 12:00 PM Normal [facility] Comment on above: Order Comment: Pleas e Evaluate MRI FOOT WO CONTRAST RIGHTon 04-12-2020 MRI FOOT WO CONTRAST RIGHT [facility] Department of Radiology [address] [place] [id number] Patient Name: ABBEY SWARTZ : 1970 Sex: F Age: Race: White Pt. 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 Electronically signed: Sanjuana Keith. Transcribed by: [email or web address], User Resident: Electronically Signed by: SANJUANA KEITH @ 04/12/2020 12:15 PM Normal [facility] Comment on above: Order Comment: Pleas e Evaluate Basic Metabolic Panelon -2 Calcium mass conc 8.8 mg/dL Normal 8.2-10.2 [facility] Comment on above: Performed By: #### C BC, BMP #### [facility] [address] [place] [id number] [place] Chloride molar conc 103 mmol/L Normal 95-114 [facility] Comment on above: Performed By: #### C BC, BMP #### [facility] [address] [place] [address] [facility] CO2 molar conc 26.6 mmol/L Normal 22.0-30.0 [facility] Comment on above: Performed By: #### C BC, BMP #### [facility] [address] [place] [address] [place] Creatinine mass conc 0.71 mg/dL Normal 0.44-1.03 [facility] Comment on above: Performed By: #### C BC, BMP #### [address] Creatinine mass conc 101.7840338474 mg/dL Normal [facility] Comment on above: Result Comment: PERF ORMED BY: [place] [address] PATHOLOGIST HEAD ROSE GROWER BIANCA GARG M.D. Performed By: #### C BC, BMP #### [address] Estimated GFR ( Bhavna > 60 Normal [facility] Comment on above: Result Comment: GFR estimated reference range: According to KDOQI guidelines, <60 ml/min/1.73m2 is sufficient to diagnose a patient with chronic kidney disease. Performed By: #### C BC, BMP #### [address] Estimated GFR (Non- Am > 60 Normal [facility] Comment on above: Performed By: #### C BC, BMP #### [address] Glucose mass conc 103 mg/dL High 70-100 [facility] Comment on above: Result Comment: [place] Glucose Reference Range is dependent on time and content of last meal. Glucose of more than 200 mg/dL in a nonstressed, ambulatory subject supports the diagnosis of Diabetes Mellitus. ADA recommended reference range Performed By: #### C BC, BMP #### [place] [address] [place] Potassium molar conc 4.0 mmol/L Normal 3.5-5.1 [facility] Comment on above: Performed By: #### C BC, BMP #### [place] [address] [place] Sodium molar conc 138 mmol/L Normal 136-146 [facility] Comment on above: Performed By: #### C BC, BMP #### [address] Urea nitrogen mass conc 9 mg/dL Normal 9-23 [facility] Comment on above: Performed By: #### C BC, BMP #### [address] Complete Blood Count Auto Di ffon 08-14-2018 Basophils #/vol (Bld) 0.0 10*3/uL Normal 0.0-0.2 [facility] Comment on above: Result Comment: PERF ORMED BY: [place] [address] PATHOLOGIST HEAD ROSE GROWER BIANCA GARG M.D. Performed By: #### C BC, BMP #### [address] Basophils/100 WBC (Bld) 0.3 % Normal . [facility] Comment on above: Performed By: #### C BC, BMP #### [address] Eosinophils #/vol (Bld) 0.1 10*3/uL Normal 0.0-0.45 [facility] Comment on above: Performed By: #### C BC, BMP #### [address] Eosinophils/100 WBC (Bld) 1.9 % Normal . [facility] Comment on above: Performed By: #### C BC, BMP #### [address] Erythrocyte distribution width Ratio (RBC) 14.3 % Normal 11.9-15.3 [facility] Comment on above: Performed By: #### C BC, BMP #### [address] Hematocrit Volume Fraction (Bld) 30.5 % Low 34.0-46.4 [facility] Comment on above: Performed By: #### C BC, BMP #### [address] Hemoglobin mass conc (Bld) 10.0 g/dL Low 11.8-15.4 [facility] Comment on above: Performed By: #### C BC, BMP #### [address] Lymphocytes #/vol (Bld) 1.8 10*3/uL Normal 1.00-4.8 [facility] Comment on above: Performed By: #### C BC, BMP #### [address] Lymphocytes/100 WBC (Bld) 25.6 % Normal . [facility] Comment on above: Performed By: #### C BC, BMP #### [address] MCH Entitic mass (RBC) 32.9 g/dL Normal 32.0-35.0 [facility] Comment on above: Performed By: #### C BC, BMP #### [address] MCH Entitic mass (RBC) 30.0 pg Normal 24.7-34.3 [facility] Comment on above: Performed By: #### C BC, BMP #### [address] MCV Entitic volume (RBC) 91.3 fL Normal 80-100 [facility] Comment on above: Performed By: #### C BC, BMP #### [address] Monocytes #/vol (Bld) 0.6 10*3/uL Normal 0.0-0.8 [facility] Comment on above: Performed By: #### C BC, BMP #### [address] Monocytes/100 WBC (Bld) 8.1 % Normal . [facility] Comment on above: Performed By: #### C BC, BMP #### [address] Neutrophils #/vol (Bld) 4.4 10*3/uL Normal 1.8-7.7 [facility] Comment on above: Performed By: #### C BC, BMP #### [facility] [address] [place] [address] [place] Neutrophils/100 WBC (Bld) 64.1 % Normal . [facility] Comment on above: Performed By: #### C BC, BMP #### [facility] [address] Nucleated RBC/100 WBC Ratio (Bld) 0.1 % Normal 0-0.5 [facility] Comment on above: Performed By: #### C BC, BMP #### [facility] [address] Platelet mean volume Entitic volume (Bld) 8.6 fL Normal 6.3-10.7 [facility] Comment on above: Performed By: #### C BC, BMP #### [facility] [address] Platelets #/vol (Bld) 254 10*3/uL Normal 150-450 [facility] Comment on above: Performed By: #### C BC, BMP #### [facility] [address] RBC #/vol (Bld) 3.35 10*6/uL Low 3.60-5.00 [facility] Comment on above: Performed By: #### C BC, BMP #### [facility] [address] WBC #/vol (Bld) 6.9 10*3/uL Normal 4.5-11.0 [facility] Comment on above: Performed By: #### C BC, BMP #### [facility] [address] Complete Blood Count Auto Di ffon 08-11-2018 Basophils #/vol (Bld) 0.0 10*3/uL Normal 0.0-0.2 [facility] Comment on above: Result Comment: PERF ORMED BY: [place] [address] PATHOLOGIST HEAD ROSE GROWER BIANCA GARG M.D. Performed By: #### C BC, CMP, PAB, B12, FOL #### [address] Basophils/100 WBC (Bld) 0.6 % Normal . [facility] Comment on above: Performed By: #### C BC, CMP, PAB, B12, FOL #### [address] Eosinophils #/vol (Bld) 0.1 10*3/uL Normal 0.0-0.45 [facility] Comment on above: Performed By: #### C BC, CMP, PAB, B12, FOL #### [address] Eosinophils/100 WBC (Bld) 1.2 % Normal . [facility] Comment on above: Performed By: #### C BC, CMP, PAB, B12, FOL #### [address] Erythrocyte distribution width Ratio (RBC) 14.1 % Normal 11.9-15.3 [facility] Comment on above: Performed By: #### C BC, CMP, PAB, B12, FOL #### [address] Hematocrit Volume Fraction (Bld) 30.4 % Low 34.0-46.4 [facility] Comment on above: Performed By: #### C BC, CMP, PAB, B12, FOL #### [address] Hemoglobin mass conc (Bld) 10.3 g/dL Low 11.8-15.4 [facility] Comment on above: Performed By: #### C BC, CMP, PAB, B12, FOL #### [address] Lymphocytes #/vol (Bld) 1.9 10*3/uL Normal 1.00-4.8 [facility] Comment on above: Performed By: #### C BC, CMP, PAB, B12, FOL #### [address] Lymphocytes/100 WBC (Bld) 23.9 % Normal . [facility] Comment on above: Performed By: #### C BC, CMP, PAB, B12, FOL #### [address] MCH Entitic mass (RBC) 30.9 pg Normal 24.7-34.3 [facility] Comment on above: Performed By: #### C BC, CMP, PAB, B12, FOL #### [address] MCH Entitic mass (RBC) 33.8 g/dL Normal 32.0-35.0 [facility] Comment on above: Performed By: #### C BC, CMP, PAB, B12, FOL #### [address] MCV Entitic volume (RBC) 91.5 fL Normal 80-100 [facility] Comment on above: Performed By: #### C BC, CMP, PAB, B12, FOL #### [address] Monocytes #/vol (Bld) 0.8 10*3/uL Normal 0.0-0.8 [facility] Comment on above: Performed By: #### C BC, CMP, PAB, B12, FOL #### [address] Monocytes/100 WBC (Bld) 9.7 % Normal . [facility] Comment on above: Performed By: #### C BC, CMP, PAB, B12, FOL #### [address] Neutrophils #/vol (Bld) 5.2 10*3/uL Normal 1.8-7.7 [facility] Comment on above: Performed By: #### C BC, CMP, PAB, B12, FOL #### [address] Neutrophils/100 WBC (Bld) 64.6 % Normal . [facility] Comment on above: Performed By: #### C BC, CMP, PAB, B12, FOL #### [address] Nucleated RBC/100 WBC Ratio (Bld) 0.2 % Normal 0-0.5 [facility] Comment on above: Performed By: #### C BC, CMP, PAB, B12, FOL #### [address] Platelet mean volume Entitic volume (Bld) 8.9 fL Normal 6.3-10.7 [facility] Comment on above: Performed By: #### C BC, CMP, PAB, B12, FOL #### [address] Platelets #/vol (Bld) 234 10*3/uL Normal 150-450 [facility] Comment on above: Performed By: #### C BC, CMP, PAB, B12, FOL #### [address] RBC #/vol (Bld) 3.32 10*6/uL Low 3.60-5.00 [facility] Comment on above: Performed By: #### C BC, CMP, PAB, B12, FOL #### [address] WBC #/vol (Bld) 8.1 10*3/uL Normal 4.5-11.0 [facility] Comment on above: Performed By: #### C BC, CMP, PAB, B12, FOL #### [address] Comprehensive Metabolic Pane robbie 08-11-2018 Albumin mass conc 2.9 g/dL Low 3.2-5.5 [facility] Comment on above: Performed By: #### C BC, CMP, PAB, B12, FOL #### [address] Albumin/Globulin mass ratio 0.9 {ratio} Normal [facility] Comment on above: Performed By: #### C BC, CMP, PAB, B12, FOL #### [address] ALP enzyme act/vol 98 U/L High 32-92 [facility] Comment on above: Performed By: #### C BC, CMP, PAB, B12, FOL #### [facility] [address] [place] [address] ALT enzyme act/vol 34 U/L Normal 10-60 [facility] Comment on above: Performed By: #### C BC, CMP, PAB, B12, FOL #### [facility] [address] [place] [address] AST enzyme act/vol 19 U/L Normal 10-42 [facility] Comment on above: Performed By: #### C BC, CMP, PAB, B12, FOL #### [address] Bilirubin mass conc 0.5 mg/dL Normal 0.3-1.2 [facility] Comment on above: Performed By: #### C BC, CMP, PAB, B12, FOL #### [address] Calcium mass conc 8.7 mg/dL Normal 8.2-10.2 [facility] Comment on above: Performed By: #### C BC, CMP, PAB, B12, FOL #### [address] Chloride molar conc 101 mmol/L Normal 95-114 [facility] Comment on above: Performed By: #### C BC, CMP, PAB, B12, FOL #### [address] CO2 molar conc 24.8 mmol/L Normal 22.0-30.0 [facility] Comment on above: Performed By: #### C BC, CMP, PAB, B12, FOL #### [address] Creatinine mass conc 111.6705278869 mg/dL Normal [facility] Comment on above: Performed By: #### C BC, CMP, PAB, B12, FOL #### [place] [address] [place] Creatinine mass conc 0.63 mg/dL Normal 0.44-1.03 [facility] Comment on above: Performed By: #### C BC, CMP, PAB, B12, FOL #### [facility] [address] Estimated GFR ( Bhavna > 60 Normal [facility] Comment on above: Result Comment: GFR estimated reference range: According to KDOQI guidelines, <60 ml/min/1.73m2 is sufficient to diagnose a patient with chronic kidney disease. Performed By: #### C BC, CMP, PAB, B12, FOL #### [facility] [address] Estimated GFR (Non- Am > 60 Normal [facility] Comment on above: Performed By: #### C BC, CMP, PAB, B12, FOL #### [address] Globulin mass conc (S) 3.1 g/dL Normal [facility] Comment on above: Performed By: #### C BC, CMP, PAB, B12, FOL #### [address] Glucose mass conc 138 mg/dL High 70-100 [facility] Comment on above: Result Comment: [place] om Glucose Reference Range is dependent on time and content of last meal. Glucose of more than 200 mg/dL in a nonstressed, ambulatory subject supports the diagnosis of Diabetes Mellitus. ADA recommended reference range Performed By: #### C BC, CMP, PAB, B12, FOL #### [address] Potassium molar conc 3.8 mmol/L Normal 3.5-5.1 [facility] Comment on above: Performed By: #### C BC, CMP, PAB, B12, FOL #### [facility] [address] Protein mass conc 6.0 g/dL Low 6.1-7.9 [facility] Comment on above: Performed By: #### C BC, CMP, PAB, B12, FOL #### [address] [address] [place] Sodium molar conc 136 mmol/L Normal 136-146 [facility] Comment on above: Performed By: #### C BC, CMP, PAB, B12, FOL #### [address] Urea nitrogen mass conc 11 mg/dL Normal 9-23 [facility] Comment on above: Performed By: #### C BC, CMP, PAB, B12, FOL #### [address] Folateon 08-11-2018 Folate 17.5 ng/mL Normal [facility] Comment on above: Result Comment: [place]elena te reference range: >5.9 ng/ml The WHO technical consultation on folate and vitamin b12 deficiencies has determined that folate concentrations less than 4 ng/ml are considered deficient. PERFORMED BY: [place] [address] PATHOLOGIST HEAD ROSE GROWER BIANCA GARG M.D. Performed By: #### C BC, CMP, PAB, B12, FOL #### [facility] [address] [place] [address] Prealbuminon 08-11-2018 Prealbumin mass conc 16.5 mg/dL Low 18.0-38.0 [facility] Comment on above: Performed By: #### C BC, CMP, PAB, B12, FOL #### [facility] [address] [place] [address] Vitamin B12on 08-11-2018 Cobalamin (Vitamin B12) mass conc 146 pg/mL Low 180-914 [facility] Comment on above: Performed By: #### C BC, CMP, PAB, B12, FOL #### [facility] [address] [place] [address] Urinalysison 08-10-2018 Appearance Nom (U) Clear Normal Clear [facility] Comment on above: Order Comment: Name Collection Type: Clean-Voided Midstream Performed By: #### U A #### [address] Bilirubin,Urine Negative Normal Negative [facility] Comment on above: Order Comment: Name Collection Type: Clean-Voided Midstream Performed By: #### U A #### [facility] [address] [place] [address] [place] Color Nom (U) Yellow Normal Yellow [facility] Comment on above: Order Comment: Name Collection Type: Clean-Voided Midstream Performed By: #### U A #### [facility] [address] [place] [address] [place] Glucose Ql (U) Normal Normal Normal [facility] Comment on above: Order Comment: Name Collection Type: Clean-Voided Midstream Performed By: #### U A #### [facility] [address] [place] [address] Ketones Ql (U) Negative Normal Negative [facility] Comment on above: Order Comment: Name Collection Type: Clean-Voided Midstream Performed By: #### U A #### [facility] [address] [place] [address] Leukocyte esterase Test strip Ql (U) Negative Normal Negative [facility] Comment on above: Order Comment: Name Collection Type: Clean-Voided Midstream Performed By: #### U A #### [facility] [address] [place] [address] [place] Nitrite,Urine Negative Normal Negative [facility] Comment on above: Order Comment: Name Collection Type: Clean-Voided Midstream Performed By: #### U A #### [facility] [address] [place] [address] [place] Occult Blood,Urine Negative Normal Negative [facility] Comment on above: Order Comment: Name Collection Type: Clean-Voided Midstream Result Comment: PERF ORMED BY: [place] [address] PATHOLOGIST HEAD ROSE GROWER BIANCA GARG M.D. Performed By: #### U A #### [facility] [address] [place] [address] [place] pH (U) 6.5 [pH] Normal 5.0-9.0 [facility] Comment on above: Order Comment: Name Collection Type: Clean-Voided Midstream Performed By: #### U A #### [facility] [address] Protein mass conc (U) Negative Normal Negative [facility] Comment on above: Order Comment: Name Collection Type: Clean-Voided Midstream Performed By: #### U A #### [facility] [address] Specificy Hubertus,Urine 1.025 Normal 1.001-1.030 [facility] Comment on above: Order Comment: Name Collection Type: Clean-Voided Midstream Performed By: #### U A #### [facility] [address] Urobilinogen,Urine Normal Normal Normal [facility] Comment on above: Order Comment: Name Collection Type: Clean-Voided Midstream Performed By: #### U A #### [address] Vital Signs Date Time Vital Sign Value Performing Clinician Faci lity 03-11-2024 13:36-0400 Body height 149.9 cm Marco Roth MD Work Phone: [facility] 03-11-2024 13:36-0400 Body mass index (BMI) [Ratio] 38.98 kg/m2 Marco Roth MD Work Phone: [facility] 03-11-2024 13:36-0400 Body weight 87.54 kg Marco Roth MD Work Phone: [facility] 03-11-2024 13:36-0400 Heart rate 84 /min Marco Roth MD Work Phone: [facility] 03-11-2024 13:36-0400 Respiratory rate 18 /min Marco Roth MD Work Phone: [facility] Healthcare Encounters Encounter Date Encounter Type Care Provider Facility Start: 03-11-2024 End: 03-11-2024 Bamboo flowsheet Marco Roth MD Work Phone: [facility] Start: 03-11-2024 End: 03-11-2024 Bamboo flowsheet Marco Roth MD Work Phone: [facility] Start: 03-11-2024 End: 03-13-2024 Orders Only Marco Roth MD Work Phone: [facility] External Department Unsolicited Start: 03-11-2024 End: 03-11-2024 ambulatory MARCO ROTH Not Available Start: 03-11-2024 End: 03-11-2024 Office outpatient visit 25 minutes Marco Roth MD Work Phone: [facility] Comment on above: Acquired hypothyroid ism (CMS/HCC) (Primary Dx); Class 2 obesity without serious comorbidity with body mass index (BMI) of 38.0 to 38.9 in adult, unspecified obesity type; Vitamin D deficiency; Encounter for dietary consultation; Thyroid nodule (CMS/HCC) Start: 02-27-2024 ambulatory [facility] Start: 07-13-2022 Encounter for genera l adult medical examination without abnormal findings MARY NAVARRO [facility] Start: 07-11-2022 End: 07-11-2022 ambulatory MARY NAVARRO Facility:[facility] Start: 07-09-2022 End: 07-10-2022 ambulatory MARY NAVARRO Facility:[facility] Start: 07-09-2022 End: 07-10-2022 Encounter for general adult medical examination without abnormal findings MARY NAVARRO Facility: Start: 11-10-2021 ambulatory MARY NAVARRO Facility: Start: 05-18-2020 End: 05-19-2020 ambulatory YARIEL ELISE Facility:[facility] Start: 08-10-2018 End: 08-17-2018 Evaluation and management of inpatient NON STAFF Facility:[facility] Procedures Date Procedure Procedure Detail Performing Clinician Start: 03-11-2024 Assay of free thyroxine Marco Roth MD Work Phone: Start: 03-11-2024 Thyroglobulin antibody Marco Roth MD Work Phone: Start: 05-18-2020 ANESTH LOWER LEG SURGERY FÁTIMA SALAZAR Start: 05-18-2020 DRAIN/INJ JOINT/BURS A W/O US YARIEL ELISE Start: 05-18-2020 NEEDLE LOCALIZATION BY XRAY YARIEL ELISE Start: 05-18-2020 REVISION OF LOWER LE G TENDON YARIEL ELISE Plan of Treatment Date Care Activity Detail Author Start: 09-09-2024 End: 09-09-2024 Patient encounter procedure 09/09/2024 1:00 PM EDT Office Visit [facility] [address] [place] [id number] Marco Roth MD [address] [place] [address] [facility] Start: 03-11-2024 End: 03-11-2025 Thyroglobulin Antibody Thyroglobulin Antibody Lab Routine Acquired hypothyroidism (CMS/HCC) Expected: 03/11/2024 (Approximate), Expires: 03/11/2025 [facility] Work Phone: Comment on above: Expected: 03/11/2024 (Approximate), Expi res: 03/11/2025 Start: 03-11-2024 End: 03-11-2025 Thyroid peroxidase antibody Thyroid peroxidase antibody Lab Routine Acquired hypothyroidism (CMS/HCC) Expected: 03/11/2024 (Approximate), Expires: 03/11/2025 [facility] Comment on above: Expected: 03/11/2024 (Approximate), Expi res: 03/11/2025 Start: 03-11-2024 End: 03-11-2025 Thyrotropin [Units/volume] in Serum or Plasma TSH Lab Routine Acquired hypothyroidism (CMS/HCC) Expected: 03/11/2024 (Approximate), Expires: 03/11/2025 [facility] Comment on above: Expected: 03/11/2024 (Approximate), Expi res: 03/11/2025 Start: 03-11-2024 End: 03-11-2025 Thyroxine (T4) free [Mass/volume] in Serum or Plasma T4, free Lab Routine Acquired hypothyroidism (CMS/HCC) Expected: 03/11/2024 (Approximate), Expires: 03/11/2025 [facility] Comment on above: Expected: 03/11/2024 (Approximate), Expi res: 03/11/2025 Start: 03-11-2024 End: 03-11-2025 Triiodothyronine (T3) Free [Mass/volume] in Serum or Plasma T3, free Lab Routine Acquired hypothyroidism (CMS/HCC) Expected: 03/11/2024 (Approximate), Expires: 03/11/2025 [facility] Comment on above: Expected: 03/11/2024 (Approximate), Expi res: 03/11/2025 Start: 02-18-2024 Influenza vaccination Influenza Vaccine (#1) [facility] Start: 2011 Screening for malignant neoplasm of breast Mammogram [facility] Start: 09-26-2001 Screening for malignant neoplasm of cervix [facility] Start: 09-26-1992 Screening for malignant neoplasm of cervix Pap Smear [facility] Start: 1971 Screening for malignant neoplasm of colon [facility] Payers Date Payer Category Payer [facility] Care O (unspecified) AESALLY AESALLY [id number] 2022-Present [address] [place] [address] O [id number] 2018 Self-pay 1971 Unknown [id number] 1971 Unknown [id number] 1971 Unknown [id number] 1971 Unknown [id number] 1971 Unknown [id number] 1959 Private Health Insurance [id number] 1959 Unknown [id number] 1959 Unknown [id number] Unknown [id number] Social History Date Type Detail Facility Start: 02-27-2024 Tobacco smoking status NHIS Smokes t obacco daily [facility] History of tobacco use Cigarette Smoker [facility] Start: 02-27-2024 History of Social function [facility] Start: 02-27-2024 Tobacco use panel [facility] Start: 1971 Sex assigned at Not on file [facility] History of Present illness Narrative 03-11-2024 [...] currently she is taking every day with automatic glove former empty stomach. Denies family history of thyroid [...] History: Diagnosis Date Depression (CMS/HCC) Graciela's disease (CMS/HCC) History of hysterectomy HLD (hyperlipidemia) (CMS/HCC) Hypothyroidism, unspecified (CMS/HCC) Morbid obesity with BMI of 40.0-44.9, adult ([facility]/HCC) LAUREN (obstructive sleep apnea) Type 2 diabetes mellitus with hyperglycemia (CMS/HCC) Past Surgical History: Procedure Laterality Date HYSTERECTOMY [...] all orders for this visit: Acquired hypothyroidism ([facility]/HCC) We will check lab now and adjust [...] year (around 03/11/2025). documented in this encounter [facility] Progress note 02-27-2024 Note Date & [...] healing, subsequent encounter Plan: F/U 6 months [facility] Evaluation note Note Date & Type Note [...] section and content) DATE CREATED AUTHOR 08/22/2018 [facility] DATE CREATED AUTHOR AUTHOR'S ORGANIZ ATION 03/15/2021 [facility] DATE CREATED AUTHOR AUTHOR'S ORGANIZ ATION 07/22/2022 [facility] DATE CREATED AUTHOR AUTHOR'S ORGANIZ ATION 03/13/2024 [facility] EPIC DATE CREATED AUTHOR AUTHOR'S ORGANIZ ATION 11/01/2024 [facility] Care Teams (unrecognized sec tion and content) Lathe Sander Relationship Specialty Start Date End Date Unallocated, [facility]oms Provider, [address] [place] [address] PCP - General Family Medicine 02/06/24 Lathe Sander Relationship Specialty Start Date End Date Unallocated, Jess[place] [address] PCP - General Family Medicine 02/06/24 Lathe Sander Relationship Specialty Start Date End Date Unallocated, [place] [address] PCP - General Family Medicine 02/06/24 Reason [...] BE BASED ON THE PRIMARY CLINICAL RECORDS. [facility]. provides no warranty or guarantee of the accuracy or completeness of information in this document.
[2024-11-04 09:38] LABS: Basophils Percent Auto 0.3 % (0.2-2.0); Eosinophils Absolute Auto 0.1 10^3/uL (0.0-0.7); Eosinophils Percent Auto 0.9 % (0.9-7.0); Hematocrit 45.2 % (36.0-48.0); Hemoglobin 14.9 g/dL (12.0-16.0); Immature Granulocytes Abs Auto 0.02 10^3/uL (0.00-0.03); Immature Granulocytes Pct Auto 0.2 % (0.0-0.5); Lymphocytes Absolute Auto 2.2 10^3/uL (1.2-3.8); Lymphocytes Percent Auto 24.7 % (20.5-60.0); Mean Corpuscular Hemoglobin 32.6 pg (26.7-34.0); Mean Corpuscular Volume 98.9 fL (81.0-99.0); Mean Platelet Volume 10.8 fL (9.5-13.5); Monocytes Absolute Auto 0.5 10^3/uL (0.3-0.8); Monocytes Percent Auto 5.8 % (1.7-12.0); Neutrophils Percent Auto 68.1 % (43.0-75.0); Platelet Count 190 10^3/uL (150-450); Red Blood Count 4.57 10^6/uL (4.20-5.40); Red Cell Distribution Width 13.8 % (11.0-15.0); White Blood Count 8.8 10^3/uL (4.0-11.0)
[2024-11-04 10:33] LABS: Alanine Aminotransferase 23 U/L (14-59); Albumin Globulin Ratio 1.2; Albumin Level 3.6 g/dL (3.4-5.0); Alkaline Phosphatase 77 U/L (46-116); Anion Gap 10.8; Aspartate Amino Transferase 12 U/L (15-37); BUN Creatinine Ratio 15.1; Bilirubin Total 0.5 mg/dL (0.2-1.0); Calcium 8.9 mg/dL (8.5-10.1); Carbon Dioxide 30.4 mmol/L (21.0-32.0); Chloride 106 mmol/L (98-107); Chol HDL Ratio 4.3; Cholesterol 209 mg/dL (<=200); Estimated GFR (African America >60 (>=60 mL/min/1.73m^2); Estimated GFR (Non-African Ame >60 (>=60 mL/min/1.73m^2); Free T3 2.64 pg/mL (2.18-3.98); Globulin 3.1 g/dL; Glucose 111 mg/dL (74-106); HDL Cholesterol 49 mg/dL (40-60); Potassium 4.2 mmol/L (3.5-5.1); Sodium 143 mmol/L (136-145); Thyroid Stimulating Hormone 5.364 uIU/mL (0.358-3.740); Total Protein 6.7 g/dL (6.4-8.2); Triglycerides 128 mg/dL (<=150); VLDL CHOLESTEROL 25.6 mg/dL
[2024-11-04 11:55] LABS: Estimated Average Glucose 114 mg/dL; Glycohemoglobin A1C 5.6 % (4.5-6.2)
[2024-11-05 03:12] LABS: Insulin 30.8 uIU/mL (2.6-24.9)
== END 2024-11-04 09:22 | disposition home or self-care (01) ==
LOC: LAB 09:23
PROVIDERS: PCP Nurse Practitioner Family; Visit Provider Nurse Practitioner Family
DX: Z00.00 Encounter for general adult medical examination without abnormal findings (principal)
CPT/HCPCS: 36415; 80053; 80061; 82306; 83036; 83525; 83540; 84436; 84443; 84481; 85025

== ENCOUNTER 2025-02-22 10:33 | Outpatient (OUT) | payer OTHER, SELFPAY ==
--- OUTSIDE RECORDS SUMMARY | 2025-02-22 10:36 | XMS_ITS | CCD ---
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 [facility] Care Team Providers Care Matching Machine Operator Name Role Phone NON STAFF Primary Care Unavailable Erica Preston Consulting Unavailable Luis, Sameh Admitting Unavailable Rimary anne, Sameh Attending Unavailable EBRAHEIM, YARIEL Admitting Unavailable EBRAHEIM, YARIEL Attending Unavailable UNKNOWN, PHYSICIAN Referring Unavailable UNKNOWN, PHYSICIAN Primary Care Unavailable FÁTIMA SALAZAR Surgeon Unavailable ME Procedure Practitioner Unavailab le ME Procedure Practitioner Unavailab le YARIEL ELISE Surgeon [...] Facility (1 source) Naproxen Drug Allergy 08-10-2018 [facility] Repository (3 sources) Naproxen Drug Allergy 03-27-2015 [facility] Repository (1 source) Naproxen Drug Allergy 05-18-2020 [facility] Repository (4 sources) Naproxen Drug Allergy 05-27-2022 [facility] (1 source) Naproxen; Translations: [NAPROXEN SODIUM] Drug Allergy 05-27-2022 [facility] Repository Medications Current Medications Medication Drug [...] Name Value Interpretation Reference Range Facility 36on 02-07-2025 36 Patient needs appt Normal [facility] Orders Onlyon 10-28-2024 Orders Only [id number] Abbey Swartz 1970 F Date Provider Department Center 10/28/2024 [id number] ORTIZ MP ORTHO MPORTHO Family History Family history unknown: Yes Family Status - Relation Status Age at Mother Father Normal [facility] Refillon 10-25-2024 Refill [id number] Abbey Swartz 1970 F Date Provider Department Center 10/25/2024 CONSTANZA WALDRON MP ORTHO NINARTHO Family History Family history unknown: Yes Family Status - Relation Status Age at Mother Father Reason for Visit and Comments: Med Refill [[id number]] [facility] 36on 07-10-2024 36 Medication refused due [...] Type Provider Dept 02/27/24 Follow-Up BRUCE [facility] Mp Orthopaedics Showing recent visits within past [...] 05/26/2024 7:38 AM and 07/10/2024 7:38 AM [facility] Refillon 07-10-2024 Refill [id number] Abbey Swartz 1970 F Date Provider Department Center 07/10/2024 DIXIE WINSTON MP ORTHO VIRAL Family History Family history unknown: Yes Family Status - Relation Status Age at Mother Father Reason for Visit and Comments: Med Refill [[id number]] [facility] No Panel Informationon 03-13 Interpretation and review of laboratory results Abnormal [facility] Performed at: [address] [place] [address] [id number] Dope Maintenance Worker: Gold Foster PhD, Phone: [phone] Specimen Comment: A duplicate report has been generated due to demographic updates. [facility] T3, freeon 03-13-2024 Free T3 [Mass/Vol] 2.5 pg/mL 2.0 - 4.4 pg/mL [facility] T4, freeon 03-13-2024 Free T4 [Mass/Vol] 1.59 ng/dL 0.82 - 1. 77 ng/dL [facility] TSHon 03-13-2024 TSH Qn 1.220 m[IU]/L [facility] Thyroglobulin Antibodyon Thyroglobulin Ab Qn 6.5 [IU]/mL High [facility] Comment on above: Thyroglobulin Antibo dy measured by [facility] Charli Methodology It should be noted that the presence of thyroglobulin antibodies may not be pathogenic nor diagnostic, especially at very low levels. The assay appliance sales associate has found that four percent of individuals without evidence of thyroid disease or autoimmunity will have positive TgAb levels up to 4 IU/mL. Thyroid peroxidase antibodyo n 03-13-2024 TPO Ab Qn 538 [IU]/mL [facility] 36on 03-04-2024 36 Please adjust paperwork [facility] 36on 03-01-2024 36 Patient called in regard to [facility] paperwork Her paper work states 8 hr shifts. Her employer will not accept due to patient working 12hour shifts. Patient is requesting paperwork to be corrected to 8-12hr shifts and re faxed . Please call patient when complete [phone] [facility] Follow-Upon 02-27-2024 Follow-Up [id number] Abbey Swartz 1970 F Date Provider Department Center 02/27/2024 DIXIE WINSTON MP ORTHO MPORTHO Family History Family history unknown: Yes Family Status - Relation Status Age at Mother Father Level of Service:07331 ME OFFICE/OUTPATIENT ESTABLISHED MDM 10 MIN Reason for Visit and Comments: Pain [136] Normal [facility] INSULINon 07-11-2022 Insulin 27.8 uIU/mL Critically high 2.6-24.9 [facility] Comment on above: Performed By: #### I NSULIN #### [facility] [address] [place] [address] Dr. Heather Del Toro OCC BLD IMMUNO SCREENon 06-20 OCCULT BLOOD Negative Normal NEGATIVE [facility] Comment on above: Performed By: #### O BSCRN #### [facility] [address] [place] [address] Dr. Heather Del Toro CBC AUTO DIFFon 07-09-2022 BASO # 0.0 103/ul Normal 0.0-0.1 [facility] [place] Comment on above: Performed By: #### C BC #### [facility] [address] [place] [address] Dr. Heather Del Toro Basophils/100 WBC (Bld) 0.2 % Normal 0.2-2.0 [facility] [place] Comment on above: Performed By: #### C BC #### [facility] [address] [place] [address] Dr. Heather Del Toro EO # 0.1 103/ul Normal 0.0-0.7 [facility] [place] Comment on above: Performed By: #### C BC #### [facility] [address] [place] [address] Dr. Heather Del Toro Eosinophils/100 WBC (Bld) 1.0 % Normal 0.9-7.0 [facility] [place] Comment on above: Performed By: #### C BC #### [facility] [address] [place] [address] Dr. Heather Del Toro Erythrocyte distribution width (RBC) [Ratio] 14.9 % Normal 11.0-15.0 [facility] [place] Comment on above: Performed By: #### C BC #### [facility] [address] [place] [address] Dr. Heather Del Toro Hematocrit (Bld) [Volume fraction] 36.6 % Normal 36.0-48.0 [facility] [place] Comment on above: Performed By: #### C BC #### [facility] [address] [address] [address] Heather Del Toro Hemoglobin (Bld) [Mass/Vol] 12.5 g/dL Normal 12.0-16.0 [facility] [place] Comment on above: Performed By: #### C BC #### [facility] [address] [address] [address] Heather Del Toro IG # 0.01 10e3/ul Normal 0.00-0.03 [facility] [place] Comment on above: Performed By: #### C BC #### [facility] [address] [place] [address] Dr. Heather Del Toro IG % 0.1 % Normal 0.0-0.5 [facility] [place] Comment on above: Performed By: #### C BC #### [facility] [address] [place] [address] Dr. Heather Del Toro LYMPH # 3.2 103/ul Normal 1.2-3.8 [facility] [place] Comment on above: Performed By: #### C BC #### [facility] [address] [place] [address] Dr. Heather Del Toro Lymphocytes/100 WBC (Bld) 39.0 % Normal 20.5-60.0 [facility] [place] Comment on above: Performed By: #### C BC #### [facility] [address] [place] [address] Dr. Heather Del Toro MANUAL DIFF REQ NO Normal [facility] Comment on above: Performed By: #### C BC #### [facility] [address] [place] [address] Dr. Heather Del Toro MCH (RBC) [Entitic mass] 27.2 pg Normal 26.7-34.0 [facility] [place] Comment on above: Performed By: #### C BC #### [facility] [address] [place] [address] Dr. Heather Del Toro MCHC (RBC) [Mass/Vol] 34.2 g/dL Normal 29.9-35.2 [facility] [place] Comment on above: Performed By: #### C BC #### [facility] [address] [address] [address] Heather Del Toro MCV (RBC) [Entitic vol] 79.7 fL Critically low 81.0-99.0 [facility] [place] Comment on above: Performed By: #### C BC #### [facility] [address] [address] [address] Heather Del Toro MONO # 0.6 103/ul Normal 0.3-0.8 [facility] Comment on above: Performed By: #### C BC #### [facility] [address] [address] [address] Heather Del Toro Monocytes/100 WBC (Bld) 6.7 % Normal 1.7-12.0 [facility] [place] Comment on above: Performed By: #### C BC #### [facility] [address] [place] [address] Dr. Heather Del Toro NEUT # 4.4 103/ul Normal 1.4-6.5 [facility] [place] Comment on above: Performed By: #### C BC #### [facility] [address] [place] [address] Dr. Heather Del Toro Neutrophils/100 WBC (Bld) 53.0 % Normal 43.0-75.0 [facility] [place] Comment on above: Performed By: #### C BC #### [facility] [address] [place] [address] Dr. Heather Del Toro Platelet mean volume (Bld) [Entitic vol] 11.2 fL Normal 9.5-13.5 [facility] Comment on above: Performed By: #### C BC #### [facility] [address] [place] [address] Dr. Heather Del Toro PLT 168 103/ul Normal 150-450 [facility] Comment on above: Performed By: #### C BC #### [facility] [address] [place] [address] Dr. Heather Del Toro RBC 4.59 106/ul Normal 4.20-5.40 [facility] Comment on above: Performed By: #### C BC #### [facility] [address] [address] [address] Heather Del Toro WBC 8.3 103/ul Normal 4.0-11.0 [facility] [place] Comment on above: Performed By: #### C BC #### [facility] [address] [place] [address] Dr. Heather Del Toro FREE THYROXINE INDEX T7on FTI 3.30 Normal 1.30-4.50 [facility] Comment on above: Performed By: #### L IPID, CMP, T7, TSH #### [facility] [address] [place] [address] Dr. Heather Del Toro T3U 32.0 % Normal 30.0-39.0 [facility] [place] Comment on above: Performed By: #### L IPID, CMP, T7, TSH #### [facility] [address] [place] [address] Dr. Heather Del Toro T4 [Mass/Vol] 10.30 ug/dL Normal 4.80-13.90 [facility] Comment on above: Performed By: #### L IPID, CMP, T7, TSH #### [facility] [address] [place] [address] Dr. Heather Del Toro GLYCOHEMOGLOBIN A1Con 2022 ADA RECOMMENDATION SEE BELOW Normal [facility] Comment on above: Result Comment: ADA RECOMMENDED LIMIT 4.0 - 6.0 ADA THERAPEUTIC TARGET < 7.0 ACTION SUGGESTED > 7.0 Performed By: #### A 1C #### [facility] [address] [place] [address] Dr. Heather Del Toro Glucose [Mass/Vol] 146 mg/dL Normal [facility] Comment on above: Performed By: #### A 1C #### [facility] [address] [place] [address] Dr. Heather Del Toro HbA1c (Bld) [Mass fraction] 6.7 % Critically high 4.5-6.2 [facility] Comment on above: Performed By: #### A 1C #### [facility] [address] [place] [address] Dr. Heather Del Toro IRONon 01-21-2023 Iron [Mass/Vol] 26.0 ug/dL Critically low 50.0-170.0 [facility] Comment on above: Performed By: #### I YAKOV #### [facility] [address] [address] [address] Heather Del Toro LIPID PROFILEon 07-09-2022 CHOL-HDL RATIO NORM SEE BELOW Normal [facility] Comment on above: Result Comment: 3.3 - 4.4 LOW RISK 4.4 - 7.1 AVERAGE RISK 7.1 - 11.0 MODERATE RISK >11.0 HIGH RISK Performed By: #### L IPID, CMP, T7, TSH #### [facility] [address] [address] [address] Heather Del Toro Cholesterol [Mass/Vol] 212 mg/dL Critically high <=200 [facility] [place] Comment on above: Performed By: #### L IPID, CMP, T7, TSH #### [facility] [address] [address] [address] Heather Del Toro Cholesterol in HDL [Mass/Vol] 39 mg/dL Critically low 40-60 [facility] [place] Comment on above: Performed By: #### L IPID, CMP, T7, TSH #### [facility] [address] [address] [address] Hetaher Del Toro Cholesterol in LDL [Mass/Vol] 150.6 mg/dL Normal [facility] [place] Comment on above: Performed By: #### L IPID, CMP, T7, TSH #### [facility] [address] [address] [address] Heather Del Toro Cholesterol.total/Ch olesterol in HDL [Mass ratio] 5.4 {ratio} Normal [facility] [place] Comment on above: Performed By: #### L IPID, CMP, T7, TSH #### [facility] [address] [place] [address] Dr. Heather Del Toro HDL NORMAL > or = 60 mg/dl - LO W CARDIOVASCULAR RISK <40 mg/dl - HIGH CARDIOVASCULAR RISK Normal [facility] [place] Comment on above: Performed By: #### L IPID, CMP, T7, TSH #### [facility] [address] [place] [address] Dr. Heather Del Toro LDL CALC NORMAL SEE BELOW Normal [facility] Comment on above: Result Comment: <100 mg/dl OPTIMAL 100 - 129 mg/dl NEAR OR ABOVE OPTIMAL 130 - 159 mg/dl BORDERLINE HIGH 160 - 189 mg/dl HIGH >190 mg/dl VERY HIGH Performed By: #### L IPID, CMP, T7, TSH #### [facility] [address] [address] [address] Heather Del Toro Triglyceride [Mass/Vol] 112 mg/dL Normal <=150 [facility] [place] Comment on above: Performed By: #### L IPID, CMP, T7, TSH #### [facility] [address] [address] [address] Heather Del Toro VLDL CALC 22.4 mg/dL Normal [facility] [place] Comment on above: Performed By: #### L IPID, CMP, T7, TSH #### [facility] [address] [address] [address] Heather Del Toro PROF 14(COMP METB)on 023 Albumin [Mass/Vol] 3.9 g/dL Normal 3.4-5.0 [facility] Comment on above: Performed By: #### L IPID, CMP, T7, TSH #### [facility] [address] [address] [address] Heather Del Toro Albumin/Globulin [Mass ratio] 1.2 {ratio} Normal [facility] [place] Comment on above: Performed By: #### L IPID, CMP, T7, TSH #### [facility] [address] [address] [address] Heather Del Toro ALP [Catalytic activity/Vol] 132 U/L Critically high 46-116 [facility] Comment on above: Performed By: #### L IPID, CMP, T7, TSH #### [facility] [address] [address] [address] Heather Del Toro ALT [Catalytic activity/Vol] 93 U/L Critically high 14-59 [facility] [place] Comment on above: Performed By: #### L IPID, CMP, T7, TSH #### [facility] [address] [address] [address] Heather Del Toro Anion gap [Moles/Vol] 11.5 mmol/L Normal [facility] [place] Comment on above: Performed By: #### L IPID, CMP, T7, TSH #### [facility] [address] [address] [address] Heather Del Toro AST [Catalytic activity/Vol] 43 U/L Critically high 15-37 [facility] [place] Comment on above: Performed By: #### L IPID, CMP, T7, TSH #### [facility] [address] [address] [address] Heather Del Toro Bilirubin [Mass/Vol] 0.3 mg/dL Normal 0.2-1.0 [facility] [place] Comment on above: Performed By: #### L IPID, CMP, T7, TSH #### [facility] [address] [address] [address] Heather Del Toro Calcium [Mass/Vol] 9.1 mg/dL Normal 8.5-10.1 [facility] Comment on above: Performed By: #### L IPID, CMP, T7, TSH #### [facility] [address] [address] [address] Heather Del Toro Chloride [Moles/Vol] 104 mmol/L Normal 98-107 [facility] Comment on above: Performed By: #### L IPID, CMP, T7, TSH #### [facility] [address] [address] [address] Heather Del Toro CO2 [Moles/Vol] 28.9 mmol/L Normal 21.0-32.0 [facility] Comment on above: Performed By: #### L IPID, CMP, T7, TSH #### [facility] [address] [address] [address] Heather Del Toro Creatinine [Mass/Vol] 0.73 mg/dL Normal 0.55-1.02 [facility] [place] Comment on above: Performed By: #### L IPID, CMP, T7, TSH #### [facility] [address] [address] [address] Heather Del Toro EGFR-AF EQUATORIAL GUINEAN >60 Normal >=60 [facility] Comment on above: Performed By: #### L IPID, CMP, T7, TSH #### [facility] [address] [address] [address] Heather Del Toro EGFR-NON AF EQUATORIAL GUINEAN >60 Normal >=60 [facility] Comment on above: Performed By: #### L IPID, CMP, T7, TSH #### [facility] [address] [address] [address] Heather Del Toro Globulin (S) [Mass/Vol] 3.3 g/dL Normal [facility] Comment on above: Performed By: #### L IPID, CMP, T7, TSH #### [facility] [address] [address] [address] Heather Del Toro Glucose [Mass/Vol] 106 mg/dL Normal 74-106 [facility] Comment on above: Performed By: #### L IPID, CMP, T7, TSH #### [facility] [address] [place] [address] Dr. Heather Del Toro Potassium [Moles/Vol] 4.4 mmol/L Normal 3.5-5.1 [facility] Comment on above: Performed By: #### L IPID, CMP, T7, TSH #### [facility] [address] [address] [address] Heather Del Toro Protein [Mass/Vol] 7.2 g/dL Normal 6.4-8.2 [facility] Comment on above: Performed By: #### L IPID, CMP, T7, TSH #### [facility] [address] [address] [address] Heather Del Toro Sodium [Moles/Vol] 140 mmol/L Normal 136-145 [facility] Comment on above: Performed By: #### L IPID, CMP, T7, TSH #### [facility] [address] [place] [address] Dr. Heather Del Toro Urea nitrogen [Mass/Vol] 10.0 mg/dL Normal 7.0-18.0 [facility] [place] Comment on above: Performed By: #### L IPID, CMP, T7, TSH #### [facility] [address] [address] [address] Heather Del Toro Urea nitrogen/Creatinine [Mass ratio] 13.7 mg/mg Normal [facility] [place] Comment on above: Performed By: #### L IPID, CMP, T7, TSH #### [facility] [address] [place], [place] [address] Dr. Heather Del Toro TSHon 07-09-2022 TSH 4.912 uIU/mL Critically high 0.358-3.740 [facility] Comment on above: Performed By: #### L IPID, CMP, T7, TSH #### [facility] [address] [place], [place] [address] Dr. Heather Del Toro ANKLE RIGHT 2 VWSon 05-18-20 ANKLE RIGHT 2 [facility] Department of Radiology [address] [place] [id number] Patient Name: ABBEY SWARTZ : 1970 [...] JOINT CORTICOSTEROID INJECTION Exam: ANKLE RIGHT 2 VWS ANKLE RIGHT 2 VWS 05/18/2020 12:53 PM CLINICAL INDICATIONS: RIGHT PERCUTANEOUS [...] IMPRESSION: Electronically signed: Shivam Church. Transcribed by: [email or web address], User Resident: Electronically Signed by: SHIVAM CHURCH @ 05/18/2020 01:33 PM Normal [facility] Comment on above: Order Comment: RIGHT PERCUTANEOUS ACHILLES TENDON LENGTHENING WITH RIGHT ANKLE JOINT CORTICOSTEROID INJECTION Operative Reporton 0 Operative Report MR#: [id number] [facility] Pt. Name: Abbey Swartz Room #: [...] Villarreal MD Date Trans: 05/18/2020 06:45 P/angie [id number] Normal [facility] POC GLUCOSE LABon 05-18-2020 Glucose [Mass/Vol] 101 mg/dL High 70-100 [facility] Comment on above: Performed By: #### 8 [id number] #### [facility] [address] [facility] Glucose [Mass/Vol] 106 mg/dL High 70-100 [facility] Comment on above: Performed By: #### 8 5499 ####[facility] [facility] *MRSA/MSSA DNA NASALon 05-16 *MRSA/MSSA DNA NASAL Clinical Report: (D ) Specimen: NASAL SWAB Collected: 05/16/2020 10:34 Status: Final Last Updated: 05/17/2020 09:45 MSSA DNA (Final) Negative MRSA DNA (Final) Negative Normal [facility] Comment on above: Performed By: #### 3 1595 #### [facility] [address] [facility] *SARS-CoV-2 COVID-19on 05-16 SARS-CoV-2 (COVID-19) RNA NEVILLE+probe Ql (Unsp spec) Not detected Normal Not Detected [facility] Comment on above: Order Comment: The A ptima SARS-CoV-2 assay is a nucleic acid amplification test intended for the qualitative detection of RNA from SARS-CoV-2 isolated and purified from nasopharyngeal (MANPOWER DEVELOPMENT SPECIALIST),oropharyngeal (OP), nasal swab, sputum, and bronchoalveolar lavage (BAL) specimens from patients with signs and symptoms of infection who are suspected of COVID-19. Results are for the identification of SARS-CoV-2 RNA. The SARS-CoV-2 RNA is generally detectable during the acute phase of infection. The Aptima SARS-CoV-2 Assay on the [employer] system is intended for use by laboratory personnel specifically instructed and trained in the operation of the [employer] system. The Aptima SARS-CoV-2 assay is [...] information. Performed By: #### 3 [id number] #### [facility] [address] APTTon 05-16-2020 aPTT Coag (Bld) [Time] 32.1 s Normal 25.0-35.0 [facility] Comment on above: Result Comment: ALL RESULTS [...] THIS PURPOSE. Performed By: #### 5 [id number], [id number] #### [facility] [address] [place] [address], [facility] BASIC METABOLIC PANELon 11-2 Calcium [Mass/Vol] 9.5 mg/dL Normal 8.6-10.3 [facility] Comment on above: Performed By: #### 0 0071 #### [facility] [address] [facility] [place] [address], [facility] Chloride [Moles/Vol] 104 mmol/L Normal 98-107 [facility] Comment on above: Performed By: #### 0 0071 #### [facility] [address] [place] [address], [facility] CO2 [Moles/Vol] 28 mmol/L Normal 21-31 [facility] Comment on above: Performed By: #### 0 0071 #### [facility] [address] [place] [address], [facility] Creatinine [Mass/Vol] 0.79 mg/dL Normal 0.60-1.20 [facility] Comment on above: Performed By: #### 0 0071 #### [facility] [address] [place] [address], [place] GFR/1.73 sq M.predicted among blacks MDRD (S/P/Bld) [Vol rate/Area] mL/min/{1.73_m2} Normal >60 [facility] Comment on above: Performed By: #### 0 0071 #### [facility] [address] [place] [address], [place] GFR/1.73 sq M.predicted among non-blacks MDRD (S/P/Bld) [Vol rate/Area] mL/min/{1.73_m2} Normal >60 [facility] Comment on above: Performed By: #### 0 0071 #### [facility] [address] [place] [address], [place] Glucose [Mass/Vol] 116 mg/dL High 70-100 [facility] Comment on above: Performed By: #### 0 0071 #### [facility] [address] [place] [address], [place] Potassium [Moles/Vol] 4.2 mmol/L Normal 3.5-5.1 [facility] Comment on above: Performed By: #### 0 0071 #### [facility] [address] [place] [address], [place] Sodium [Moles/Vol] 139 mmol/L Normal 136-145 [facility] Comment on above: Performed By: #### 0 0071 #### [facility] [address] [place] [address], [place] Urea nitrogen [Mass/Vol] 8 mg/dL Normal 7-25 [facility] Comment on above: Performed By: #### 0 0071 #### [facility] [address] [place] [address], [place] CBC W/DIFFon 11-28-2020 ABS IMM GRANS 0.0 10*3/uL Normal 0.0-0.2 [facility] Comment on above: Performed By: #### 5 0103 #### [facility] [address] [place] [address], [facility] ABS NEUTROPHILS 5.7 10*3/uL Normal 1.6-7.6 [facility] Comment on above: Performed By: #### 5 0103 #### [facility] [address] [place] [address], [facility] Basophils (Bld) [#/Vol] 0.0 10*3/uL Normal 0.0-0.2 [facility] Comment on above: Performed By: #### 5 0103 #### [facility] [address] [facility] [place] [address], [facility] Basophils/100 WBC (Bld) 0.3 % Normal 0.0-1.0 [facility] Comment on above: Performed By: #### 5 0103 #### [facility] [address] [place] [address], [facility] Eosinophils (Bld) [#/Vol] 0.1 10*3/uL Normal 0.0-0.5 [facility] Comment on above: Performed By: #### 5 0103 #### [facility] [address] [facility] [place] [address], [facility] Eosinophils/100 WBC (Bld) 1.4 % Normal 0.0-6.0 [facility] Comment on above: Performed By: #### 5 0103 #### [facility] [address] [place] [address], [facility] Erythrocyte distribution width (RBC) [Ratio] 16.6 % High 11.5-15.0 [facility] Comment on above: Performed By: #### 5 0103 #### [facility] [address] [facility] [address] Hematocrit (Bld) [Volume fraction] 41.8 % Normal 36.0-45.0 [facility] Comment on above: Performed By: #### 5 0103 #### [facility] [address] [facility] [place] [address], [facility] Hemoglobin (Bld) [Mass/Vol] 12.4 g/dL Normal 12.0-15.0 [facility] Comment on above: Performed By: #### 5 0103 #### [facility] [address] [place] [address], [facility] IMMATURE GRANS 0.3 % Normal 0.0-1.0 [facility] Comment on above: Performed By: #### 5 0103 #### [facility] [address] Lymphocytes (Bld) [#/Vol] 2.8 10*3/uL Normal 1.2-4.0 [facility] Comment on above: Performed By: #### 5 0103 #### [facility] [address] [place] [address], [facility] Lymphocytes/100 WBC (Bld) 29.8 % Normal 20.0-45.0 [facility] Comment on above: Performed By: #### 5 0103 #### [facility] [address] [place] [address], [facility] MCH (RBC) [Entitic mass] 25.2 pg Low 27.0-33.0 [facility] Comment on above: Performed By: #### 5 0103 #### [facility] [address] [place] [address], [facility] MCHC (RBC) [Mass/Vol] 29.7 g/dL Low 32.0-35.0 [facility] Comment on above: Performed By: #### 5 0103 #### [facility] [address] [place] [address], [facility] MCV (RBC) [Entitic vol] 85.0 fL Normal 82.0-98.0 [facility] Comment on above: Performed By: #### 5 0103 #### [facility] [address] [place] [address], [place] Monocytes (Bld) [#/Vol] 0.7 10*3/uL Normal 0.1-1.0 [facility] Comment on above: Performed By: #### 5 0103 #### [facility] [address] [place] [id number], [facility] MONOS 7.2 % Normal 5.0-12.0 [facility] Comment on above: Performed By: #### 102 #### [facility] [address] [place] [address], [facility] Neutrophils/100 WBC (Bld) 61.0 % Normal 40.0-72.0 [facility] Comment on above: Performed By: #### 102 #### [facility] [address] [place] [address], [facility] Nucleated RBC/100 WBC (Bld) [Ratio] 0 % Normal 0-0 [facility] Comment on above: Performed By: #### 5 102 #### [facility] [address] [place] [address], [place] PLAT CNT 210 10*3/uL Normal 150-400 [facility] Comment on above: Performed By: #### 102 #### [facility] [address] [place] [address], [place] RBC (Bld) [#/Vol] 4.92 10*6/uL Normal 3.80-5.00 [facility] Comment on above: Performed By: #### 102 #### [facility] [address] [place] [address], [place] WBC (Bld) [#/Vol] 9.29 10*3/uL Normal 4.00-10.60 [facility] Comment on above: Performed By: #### 5 0103 #### [facility] [address] [facility] PROTHROMBIN TIMEon 0 INR Coag (PPP) [Relative time] 0.82 {INR} Low 0.91-1.16 [facility] Comment on above: Result Comment: ACCC [...] CHEST 1995;108:[id number]. Performed By: #### 5 6101, [id number] #### [facility] [address] [facility] PT Coag (PPP) [Time] 11.3 s Low 12.3-14.8 [facility] Comment on above: Result Comment: ALL RESULTS MUST BE INTERPRETED WITH RESPECT TO BLOOD DRAWING ARTIFACT OR DILUTION ERROR OF ANTICOAGULANT AT THE TIME OF SAMPLING. 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 COMPARISON: None IMPRESSION: Unremarkable orbits. No radiopaque foreign body identified. Clear paranasal sinuses. Electronically signed: Sanjuana Keith. Transcribed by: [email or web address], User Resident: Electronically Signed by: SANJUANA KEITH @ 04/12/2020 08:45 AM Normal [facility] MRI ANKLE WO CONTRAST RIGHTo n 04-12-2020 MRI ANKLE WO CONTRAST RIGHT [facility] Department of Radiology [address] [place] [address] Patient Name: ABBEY SWARTZ : 1970 Sex: F Age: Race: White Pt. 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 [facility] Req. [facility] approved for CPT 60924 Approval Scanned into [place] Claim# [id number] Valid 04/07/20-04/21/20 *SLA Comments: Please Evaluate Exam: [...] joint. Electronically signed: Sanjuana Keith. Transcribed by: [email or web address], User Resident: Electronically Signed by: SANJUANA KEITH @ 04/12/2020 12:00 PM Normal [facility] Comment on above: Order Comment: Niecy gleason Evaluate MRI FOOT WO CONTRAST RIGHTon 04-12-2020 MRI FOOT WO CONTRAST RIGHT [facility] Department of Radiology [address] [place] [id number] Patient Name: ABBEY SWARTZ : 1970 Sex: F Age: Race: White Pt. 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 Electronically signed: Sanjuana Keith. Transcribed by: [email or web address], User Resident: Electronically Signed by: SANJUANA KEITH @ 04/12/2020 12:15 PM Normal [facility] Comment on above: Order Comment: Pletera gleason Evaluate Basic Metabolic Panelon -2 Calcium mass conc 8.8 mg/dL Normal 8.2-10.2 [facility] Comment on above: Performed By: #### C BC, BMP #### [facility] [address] Chloride molar conc 103 mmol/L Normal 95-114 [facility] Comment on above: Performed By: #### C BC, BMP #### [facility] [address] CO2 molar conc 26.6 mmol/L Normal 22.0-30.0 [facility] Comment on above: Performed By: #### C BC, BMP #### [facility] [address] [place] [id number] [place] Creatinine mass conc 0.71 mg/dL Normal 0.44-1.03 [facility] Comment on above: Performed By: #### C BC, BMP #### [facility] [address] [place] [id number] [place] Creatinine mass conc 101.2199507804 mg/dL Normal [facility] Comment on above: Result Comment: PERF ORMED BY: [place] [address] PATHOLOGIST LEATHER LEVELER BIANCA GARG M.D. Performed By: #### C BC, BMP #### [address] Estimated GFR ( Bhavna > 60 Normal [facility] Comment on above: Result Comment: GFR estimated reference range: According to KDOQI guidelines, <60 ml/min/1.73m2 is sufficient to diagnose a patient with chronic kidney disease. Performed By: #### C BC, BMP #### [address] Estimated GFR (Non- Am > 60 Normal [facility] Comment on above: Performed By: #### C BC, BMP #### [place] [address] [place] Glucose mass conc 103 mg/dL High 70-100 [facility] Comment on above: Result Comment: [place] Glucose Reference Range is dependent on time and content of last meal. Glucose of more than 200 mg/dL in a nonstressed, ambulatory subject supports the diagnosis of Diabetes Mellitus. ADA recommended reference range Performed By: #### C BC, BMP #### [address] Potassium molar conc 4.0 mmol/L Normal 3.5-5.1 [facility] Comment on above: Performed By: #### C BC, BMP #### [place] [address] [place] Sodium molar conc 138 mmol/L Normal 136-146 [facility] Comment on above: Performed By: #### C BC, BMP #### [place] [address] [place] Urea nitrogen mass conc 9 mg/dL Normal 9-23 [facility] Comment on above: Performed By: #### C BC, BMP #### [address] Complete Blood Count Auto Di ffon 08-14-2018 Basophils #/vol (Bld) 0.0 10*3/uL Normal 0.0-0.2 [facility] Comment on above: Result Comment: PERF ORMED BY: [place] [address] PATHOLOGIST LEATHER LEVELER BIANCA GARG M.D. Performed By: #### C BC, BMP #### [address] Basophils/100 WBC (Bld) 0.3 % Normal . [facility] Comment on above: Performed By: #### C BC, BMP #### [address] Eosinophils #/vol (Bld) 0.1 10*3/uL Normal 0.0-0.45 [facility] Comment on above: Performed By: #### C BC, BMP #### [address] Eosinophils/100 WBC (Bld) 1.9 % Normal . [facility] Comment on above: Performed By: #### C BC, BMP #### [address] Erythrocyte distribution width Ratio (RBC) 14.3 % Normal 11.9-15.3 [facility] Comment on above: Performed By: #### C BC, BMP #### [address] Hematocrit Volume Fraction (Bld) 30.5 % Low 34.0-46.4 [facility] Comment on above: Performed By: #### C BC, BMP #### [address] Hemoglobin mass conc (Bld) 10.0 g/dL Low 11.8-15.4 [facility] Comment on above: Performed By: #### C BC, BMP #### [address] Lymphocytes #/vol (Bld) 1.8 10*3/uL Normal 1.00-4.8 [facility] Comment on above: Performed By: #### C BC, BMP #### [address] Lymphocytes/100 WBC (Bld) 25.6 % Normal . [facility] Comment on above: Performed By: #### C BC, BMP #### [address] MCH Entitic mass (RBC) 32.9 g/dL Normal 32.0-35.0 [facility] Comment on above: Performed By: #### C BC, BMP #### [address] MCH Entitic mass (RBC) 30.0 pg Normal 24.7-34.3 [facility] Comment on above: Performed By: #### C BC, BMP #### [address] MCV Entitic volume (RBC) 91.3 fL Normal 80-100 [facility] Comment on above: Performed By: #### C BC, BMP #### [address] Monocytes #/vol (Bld) 0.6 10*3/uL Normal 0.0-0.8 [facility] Comment on above: Performed By: #### C BC, BMP #### [address] Monocytes/100 WBC (Bld) 8.1 % Normal . [facility] Comment on above: Performed By: #### C BC, BMP #### [address] Neutrophils #/vol (Bld) 4.4 10*3/uL Normal 1.8-7.7 [facility] Comment on above: Performed By: #### C BC, BMP #### [place] [address] [place] Neutrophils/100 WBC (Bld) 64.1 % Normal . [facility] Comment on above: Performed By: #### C BC, BMP #### [place] [address] [place] Nucleated RBC/100 WBC Ratio (Bld) 0.1 % Normal 0-0.5 [facility] Comment on above: Performed By: #### C BC, BMP #### [address] Platelet mean volume Entitic volume (Bld) 8.6 fL Normal 6.3-10.7 [facility] Comment on above: Performed By: #### C BC, BMP #### [address] Platelets #/vol (Bld) 254 10*3/uL Normal 150-450 [facility] Comment on above: Performed By: #### C AVERY, BMP #### [address] RBC #/vol (Bld) 3.35 10*6/uL Low 3.60-5.00 [facility] Comment on above: Performed By: #### C BC, BMP #### [address] WBC #/vol (Bld) 6.9 10*3/uL Normal 4.5-11.0 [facility] Comment on above: Performed By: #### C BC, BMP #### [address] Complete Blood Count Auto Di ffon 08-11-2018 Basophils #/vol (Bld) 0.0 10*3/uL Normal 0.0-0.2 [facility] Comment on above: Result Comment: PERF ORMED BY: [place] [address] PATHOLOGIST LEATHER LEVELER BIANCA GARG M.D. Performed By: #### C BC, CMP, PAB, B12, FOL #### [address] Basophils/100 WBC (Bld) 0.6 % Normal . [facility] Comment on above: Performed By: #### C BC, CMP, PAB, B12, FOL #### [address] Eosinophils #/vol (Bld) 0.1 10*3/uL Normal 0.0-0.45 [facility] Comment on above: Performed By: #### C BC, CMP, PAB, B12, FOL #### [address] Eosinophils/100 WBC (Bld) 1.2 % Normal . [facility] Comment on above: Performed By: #### C BC, CMP, PAB, B12, FOL #### [address] Erythrocyte distribution width Ratio (RBC) 14.1 % Normal 11.9-15.3 [facility] Comment on above: Performed By: #### C BC, CMP, PAB, B12, FOL #### [address] Hematocrit Volume Fraction (Bld) 30.4 % Low 34.0-46.4 [facility] Comment on above: Performed By: #### C BC, CMP, PAB, B12, FOL #### [address] Hemoglobin mass conc (Bld) 10.3 g/dL Low 11.8-15.4 [facility] Comment on above: Performed By: #### C BC, CMP, PAB, B12, FOL #### [address] Lymphocytes #/vol (Bld) 1.9 10*3/uL Normal 1.00-4.8 [facility] Comment on above: Performed By: #### C BC, CMP, PAB, B12, FOL #### [address] Lymphocytes/100 WBC (Bld) 23.9 % Normal . [facility] Comment on above: Performed By: #### C BC, CMP, PAB, B12, FOL #### [address] MCH Entitic mass (RBC) 30.9 pg Normal 24.7-34.3 [facility] Comment on above: Performed By: #### C BC, CMP, PAB, B12, FOL #### [address] MCH Entitic mass (RBC) 33.8 g/dL Normal 32.0-35.0 [facility] Comment on above: Performed By: #### C BC, CMP, PAB, B12, FOL #### [address] MCV Entitic volume (RBC) 91.5 fL Normal 80-100 [facility] Comment on above: Performed By: #### C BC, CMP, PAB, B12, FOL #### [address] Monocytes #/vol (Bld) 0.8 10*3/uL Normal 0.0-0.8 [facility] Comment on above: Performed By: #### C BC, CMP, PAB, B12, FOL #### [address] Monocytes/100 WBC (Bld) 9.7 % Normal . [facility] Comment on above: Performed By: #### C BC, CMP, PAB, B12, FOL #### [address] Neutrophils #/vol (Bld) 5.2 10*3/uL Normal 1.8-7.7 [facility] Comment on above: Performed By: #### C BC, CMP, PAB, B12, FOL #### [address] Neutrophils/100 WBC (Bld) 64.6 % Normal . [facility] Comment on above: Performed By: #### C BC, CMP, PAB, B12, FOL #### [address] Nucleated RBC/100 WBC Ratio (Bld) 0.2 % Normal 0-0.5 [facility] Comment on above: Performed By: #### C BC, CMP, PAB, B12, FOL #### [address] Platelet mean volume Entitic volume (Bld) 8.9 fL Normal 6.3-10.7 [facility] Comment on above: Performed By: #### C BC, CMP, PAB, B12, FOL #### [facility] [address] [place] [address] Platelets #/vol (Bld) 234 10*3/uL Normal 150-450 [facility] Comment on above: Performed By: #### C BC, CMP, PAB, B12, FOL #### [facility] [address] [place] [address] RBC #/vol (Bld) 3.32 10*6/uL Low 3.60-5.00 [facility] Comment on above: Performed By: #### C BC, CMP, PAB, B12, FOL #### [address] WBC #/vol (Bld) 8.1 10*3/uL Normal 4.5-11.0 [facility] Comment on above: Performed By: #### C BC, CMP, PAB, B12, FOL #### [address] Comprehensive Metabolic Pane robbie 08-11-2018 Albumin mass conc 2.9 g/dL Low 3.2-5.5 [facility] Comment on above: Performed By: #### C BC, CMP, PAB, B12, FOL #### [address] Albumin/Globulin mass ratio 0.9 {ratio} Normal [facility] Comment on above: Performed By: #### C BC, CMP, PAB, B12, FOL #### [facility] [address] [place] [address] ALP enzyme act/vol 98 U/L High 32-92 [facility] Comment on above: Performed By: #### C BC, CMP, PAB, B12, FOL #### [address] ALT enzyme act/vol 34 U/L Normal 10-60 [facility] Comment on above: Performed By: #### C BC, CMP, PAB, B12, FOL #### [facility] [address] [place] [address] [place] AST enzyme act/vol 19 U/L Normal 10-42 [facility] Comment on above: Performed By: #### C BC, CMP, PAB, B12, FOL #### [facility] [address] [place] [address] [place] Bilirubin mass conc 0.5 mg/dL Normal 0.3-1.2 [facility] Comment on above: Performed By: #### C BC, CMP, PAB, B12, FOL #### [facility] [address] Calcium mass conc 8.7 mg/dL Normal 8.2-10.2 [facility] Comment on above: Performed By: #### C BC, CMP, PAB, B12, FOL #### [facility] [address] [place] [address] [place] Chloride molar conc 101 mmol/L Normal 95-114 [facility] Comment on above: Performed By: #### C BC, CMP, PAB, B12, FOL #### [facility] [address] [place] [address] [place] CO2 molar conc 24.8 mmol/L Normal 22.0-30.0 [facility] Comment on above: Performed By: #### C BC, CMP, PAB, B12, FOL #### [facility] [address] [place] [address] [place] Creatinine mass conc 111.9247540557 mg/dL Normal [facility] Comment on above: Performed By: #### C BC, CMP, PAB, B12, FOL #### [facility] [address] [place] [id number] [place] Creatinine mass conc 0.63 mg/dL Normal 0.44-1.03 [facility] Comment on above: Performed By: #### C BC, CMP, PAB, B12, FOL #### [facility] [address] [place] [address] [place] Estimated GFR ( Bhavna > 60 Normal [facility] Comment on above: Result Comment: GFR estimated reference range: According to KDOQI guidelines, <60 ml/min/1.73m2 is sufficient to diagnose a patient with chronic kidney disease. Performed By: #### C BC, CMP, PAB, B12, FOL #### [facility] [address] Estimated GFR (Non- Am > 60 Normal [facility] Comment on above: Performed By: #### C BC, CMP, PAB, B12, FOL #### [facility] [address] Globulin mass conc (S) 3.1 g/dL Normal [facility] Comment on above: Performed By: #### C BC, CMP, PAB, B12, FOL #### [address] Glucose mass conc 138 mg/dL High 70-100 [facility] Comment on above: Result Comment: [place] Glucose Reference Range is dependent on time and content of last meal. Glucose of more than 200 mg/dL in a nonstressed, ambulatory subject supports the diagnosis of Diabetes Mellitus. ADA recommended reference range Performed By: #### C BC, CMP, PAB, B12, FOL #### [address] Potassium molar conc 3.8 mmol/L Normal 3.5-5.1 [facility] Comment on above: Performed By: #### C BC, CMP, PAB, B12, FOL #### [address] Protein mass conc 6.0 g/dL Low 6.1-7.9 [facility] Comment on above: Performed By: #### C BC, CMP, PAB, B12, FOL #### [address] Sodium molar conc 136 mmol/L Normal 136-146 [facility] Comment on above: Performed By: #### C BC, CMP, PAB, B12, FOL #### [address] Urea nitrogen mass conc 11 mg/dL Normal 9-23 [facility] Comment on above: Performed By: #### C BC, CMP, PAB, B12, FOL #### [address] Folateon 08-11-2018 Folate 17.5 ng/mL Normal [facility] Comment on above: Result Comment: Yelena te reference range: >5.9 ng/ml The WHO technical consultation on folate and vitamin b12 deficiencies has determined that folate concentrations less than 4 ng/ml are considered deficient. PERFORMED BY: [place] [address] PATHOLOGIST LEATHER LEVELER BIANCA GARG M.D. Performed By: #### C BC, CMP, PAB, B12, FOL #### [address] Prealbuminon 08-11-2018 Prealbumin mass conc 16.5 mg/dL Low 18.0-38.0 [facility] Comment on above: Performed By: #### C BC, CMP, PAB, B12, FOL #### [address] Vitamin B12on 08-11-2018 Cobalamin (Vitamin B12) mass conc 146 pg/mL Low 180-914 [facility] Comment on above: Performed By: #### C BC, CMP, PAB, B12, FOL #### [address] Urinalysison 08-10-2018 Appearance Nom (U) Clear Normal Clear [facility] Comment on above: Order Comment: Name Collection Type: Clean-Voided Midstream Performed By: #### U A #### [address] Bilirubin,Urine Negative Normal Negative [facility] Comment on above: Order Comment: Name Collection Type: Clean-Voided Midstream Performed By: #### U A #### [address] Color Nom (U) Yellow Normal Yellow [facility] Comment on above: Order Comment: Name Collection Type: Clean-Voided Midstream Performed By: #### U A #### [address] [address] [place] Glucose Ql (U) Normal Normal Normal [facility] Comment on above: Order Comment: Name Collection Type: Clean-Voided Midstream Performed By: #### U A #### [facility] [address] [place] [address] Ketones Ql (U) Negative Normal Negative [facility] Comment on above: Order Comment: Name Collection Type: Clean-Voided Midstream Performed By: #### U A #### [facility] [address] [place] [address] Leukocyte esterase Test strip Ql (U) Negative Normal Negative [facility] Comment on above: Order Comment: Name Collection Type: Clean-Voided Midstream Performed By: #### U A #### [facility] [address] [place] [address] Nitrite,Urine Negative Normal Negative [facility] Comment on above: Order Comment: Name Collection Type: Clean-Voided Midstream Performed By: #### U A #### [facility] [address] [place] [address] Occult Blood,Urine Negative Normal Negative [facility] Comment on above: Order Comment: Name Collection Type: Clean-Voided Midstream Result Comment: PERF ORMED BY: [place] [address] PATHOLOGIST LEATHER LEVELER BIANCA GARG M.D. Performed By: #### U A #### [facility] [address] [place] [address] pH (U) 6.5 [pH] Normal 5.0-9.0 [facility] Comment on above: Order Comment: Name Collection Type: Clean-Voided Midstream Performed By: #### U A #### [facility] [address] [place] [address] [place] Protein mass conc (U) Negative Normal Negative [facility] Comment on above: Order Comment: Name Collection Type: Clean-Voided Midstream Performed By: #### U A #### [facility] [address] [place] [address] Specificy [place],Urine 1.025 Normal 1.001-1.030 [facility] Comment on above: Order Comment: Name Collection Type: Clean-Voided Midstream Performed By: #### U A #### [facility] [address] Urobilinogen,Urine Normal Normal Normal [facility] Comment on above: Order Comment: Name Collection Type: Clean-Voided Midstream Performed By: #### U A #### [facility] [address] Vital Signs Date Time Vital Sign Value Performing Clinician Faci lity 03-11-2024 13:36-0400 Body height 149.9 cm Marco Roth MD Work Phone: [facility] 03-11-2024 13:36-0400 Body mass index (BMI) [Ratio] 38.98 kg/m2 Marco Roth MD Work Phone: [facility] 03-11-2024 13:36-0400 Body weight 87.54 kg Marco Roth MD Work Phone: [facility] 03-11-2024 13:36-0400 Heart rate 84 /min Marco Roth MD Work Phone: [facility] 03-11-2024 13:36-0400 Respiratory rate 18 /min Marco Roth MD Work Phone: [facility] Healthcare Encounters Encounter Date Encounter Type Care Provider Facility Start: 03-11-2024 End: 03-11-2024 Bamboo flowsheet Marco Roth MD Work Phone: [facility] Start: 03-11-2024 End: 03-11-2024 Bamboo flowsheet Marco Roth MD Work Phone: [facility] Start: 03-11-2024 End: 03-13-2024 Orders Only Marco Roth MD Work Phone: [facility] External Department Unsolicited Start: 03-11-2024 End: 03-11-2024 ambulatory MARCO ROTH Not Available Start: 03-11-2024 End: 03-11-2024 Office outpatient visit 25 minutes Marco Roth MD Work Phone: [facility] Comment on above: Acquired hypothyroid ism (CMS/HCC) (Primary Dx); Class 2 obesity without serious comorbidity with body mass index (BMI) of 38.0 to 38.9 in adult, unspecified obesity type; Vitamin D deficiency; Encounter for dietary consultation; Thyroid nodule (CMS/HCC) Start: 02-27-[address] [facility] Start: 07-13-2022 Encounter for genera l adult medical examination without abnormal findings MARY NAVARRO [facility] Start: 07-11-2022 End: 07-11-2022 ambulatory MARY NAVARRO Facility:[facility] Start: 07-09-2022 End: 07-10-2022 ambulatory MARY NAVARRO Facility:[facility] Start: 07-09-2022 End: 07-10-2022 Encounter for general adult medical examination without abnormal findings MARY NAVARRO Facility: Start: 11-10-2021 ambulatory MARY NAVARRO Facility: Start: 05-18-2020 End: 05-19-2020 ambulatory YARIEL ELISE Facility:[facility] Start: 08-10-2018 End: 08-17-2018 Evaluation and management of inpatient NON STAFF Facility:[facility] Procedures Date Procedure Procedure Detail Performing Clinician Start: 03-11-2024 Assay of free thyroxine Marco Roth MD Work Phone: Start: 03-11-2024 Thyroglobulin antibody Marco Roth MD Work Phone: Start: 05-18-2020 ANESTH LOWER LEG SURGERY FÁTIMA SALAZAR Start: 05-18-2020 DRAIN/INJ JOINT/BURS A W/O US YARIEL EBJAY Start: 05-18-2020 NEEDLE LOCALIZATION BY MENA ELISE Start: 05-18-2020 REVISION OF LOWER LE G TENDON YARIEL ELISE Plan of Treatment Date Care Activity Detail Author Start: 09-09-2024 End: 09-09-2024 Patient encounter procedure 09/09/2024 1:00 PM EDT Office Visit [facility] [address] [place] [address] Marco Roth MD [address] [place] [address] [facility] Start: 03-11-2024 End: 03-11-2025 Thyroglobulin Antibody Thyroglobulin Antibody Lab Routine Acquired hypothyroidism (CMS/HCC) Expected: 03/11/2024 (Approximate), Expires: 03/11/2025 [facility] Work Phone: Comment on above: Expected: 03/11/2024 (Approximate), Expi res: 03/11/2025 Start: 03-11-2024 End: 03-11-2025 Thyroid peroxidase antibody Thyroid peroxidase antibody Lab Routine Acquired hypothyroidism (CMS/HCC) Expected: 03/11/2024 (Approximate), Expires: 03/11/2025 [facility] Comment on above: Expected: 03/11/2024 (Approximate), Expi res: 03/11/2025 Start: 03-11-2024 End: 03-11-2025 Thyrotropin [Units/volume] in Serum or Plasma TSH Lab Routine Acquired hypothyroidism (CMS/HCC) Expected: 03/11/2024 (Approximate), Expires: 03/11/2025 [facility] Comment on above: Expected: 03/11/2024 (Approximate), Expi res: 03/11/2025 Start: 03-11-2024 End: 03-11-2025 Thyroxine (T4) free [Mass/volume] in Serum or Plasma T4, free Lab Routine Acquired hypothyroidism (CMS/HCC) Expected: 03/11/2024 (Approximate), Expires: 03/11/2025 [facility] Comment on above: Expected: 03/11/2024 (Approximate), Expi res: 03/11/2025 Start: 03-11-2024 End: 03-11-2025 Triiodothyronine (T3) Free [Mass/volume] in Serum or Plasma T3, free Lab Routine Acquired hypothyroidism (CMS/HCC) Expected: 03/11/2024 (Approximate), Expires: 03/11/2025 [facility] Comment on above: Expected: 03/11/2024 (Approximate), Expi res: 03/11/2025 Start: 02-18-2024 Influenza vaccination Influenza Vaccine (#1) [facility] Start: 2011 Screening for malignant neoplasm of breast Mammogram [facility] Start: 09-26-2001 Screening for malignant neoplasm of cervix [facility] Start: 09-26-1992 Screening for malignant neoplasm of cervix Pap Smear [facility] Start: 1971 Screening for malignant neoplasm of colon [facility] Payers Date Payer Category Payer Managed Care HMO (unspecified) [employer] A[employer] [id number] 2022-Present [address] [place] [address] O [id number] 2018 Self-pay 1971 Unknown [id number] 1971 Unknown [id number] 93 1971 Unknown [id number] 93 1971 Unknown [id number] 93 1971 Unknown [id number] 1959 Private Health Insurance [id number] 1959 Unknown [id number] 1959 Unknown [id number] Unknown [id number] 31 Social History Date Type Detail Facility Start: 02-27-2024 Tobacco smoking status COIS Smokes t obacco daily [facility] History of tobacco use Cigarette Smoker [...] 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 Denies family history of thyroid [...] Morbid obesity with BMI of 40.0-44.9, adult (CMS/HCC) LAUREN (obstructive sleep apnea) Type 2 diabetes [...] year (around 03/11/2025). documented in this encounter [facility] Progress note 02-27-2024 Note Date & Type [...] healing, subsequent encounter Plan: F/U 6 months [facility] Evaluation note Note Date & Type Note Facility Evaluation note Diagnosis Acquired hypothyroidism (CMS/HCC)- Primary Unspecified hypothyroidism Class 2 obesity without serious comorbidity with body mass index (BMI) of 38.0 to 38.9 in adult, unspecified obesity type Vitamin D deficiency Encounter for dietary consultation Thyroid nodule ([facility]) Nontoxic uninodular goiter documented in this encounter [...] section and content) DATE CREATED AUTHOR 08/22/2018 [facility] DATE CREATED AUTHOR AUTHOR'S ORGANIZ ATION 03/15/2021 [facility] DATE CREATED AUTHOR AUTHOR'S ORGANIZ ATION 07/22/2022 [facility] DATE CREATED AUTHOR AUTHOR'S ORGANIZ ATION 03/13/2024 [facility] EPIC DATE CREATED AUTHOR AUTHOR'S ORGANIZ ATION 02/09/2025 [facility] Care Teams (unrecognized sec tion and content) Matching Machine Operator Relationship Specialty Start Date End Date Unallocated, Jessika Sarmiento MD [address] [facility] [place] [address] PCP - General Family Medicine 02/06/24 Matching Machine Operator Relationship Specialty Start Date End Date Unallocated, Jessika Sarmiento MD [address] [place] [address] PCP - General Family Medicine 02/06/24 Matching Machine Operator Relationship Specialty Start Date End Date Unallocated, Jessika Sarmiento, [address] [address] PCP - General Family Medicine 02/06/24 Reason [...] BE BASED ON THE PRIMARY CLINICAL RECORDS. [employer] provides no warranty or guarantee of the accuracy or completeness of information in this document.
== END 2025-02-22 10:34 | disposition home or self-care (01) ==
PROVIDERS: PCP Nurse Practitioner Family; Visit Provider Nurse Practitioner Family
DX: R73.9 Hyperglycemia, unspecified (principal)
CPT/HCPCS: 36415; 83036